=== PATIENT | female | born 1975 | race Caucasian/White ===

== ENCOUNTER 2016-11-24 07:43 | Emergency (ER) | payer BC ==
--- NOTE | 2016-11-24 08:14 | ED ---
General Adult HPI - General Chief complaint: Urogenital Stated complaint: FEMALE Time Seen by Provider: 11/24/16 08:06 Source: patient, RN notes reviewed Mode of arrival: ambulatory Limitations: no limitations - History of Present Illness Initial comments: Patient is a 41-year-old female who presents emergency room today with a chief complaint of dysuria. She does admit to pain in urination over the last week. Does admit that she doesn't some discomfort in lower abdomen. Patient denies any other complains associated symptoms. Patient denies any recent fever, chills , shortness of breath, chest pain, back pain, abdominal pain, nausea or vomiting , numbness or tingling, constipation or diarrhea, headaches or visual changes, or any other complaints. - Related Data Allergies Allergy/AdvReac Type Severity Reaction Status Date / Time ketorolac tromethamine Allergy Unknown Verified 11/24/16 07:52 [From Toradol] tramadol AdvReac Hallucinati Verified 11/24/16 07:52 ons Review of Systems ROS Statement: Those systems with pertinent positive or pertinent negative responses have been documented in the HPI. ROS Other: All systems not noted in ROS Statement are negative. Past Medical History Past Medical History: Asthma, COPD, Pneumonia Additional Past Medical History / Comment(s): uterine cancer, carpal tunnel, back pain, restless leg syndrome History of Any Multi-Drug Resistant Organisms: None Reported Past Surgical History: Cholecystectomy, Hysterectomy, Tubal Ligation Past Psychological History: Anxiety, Depression, Panic Disorder Smoking Status: Current every day smoker Past Alcohol Use History: None Reported Past Drug Use History: None Reported General Exam - General Exam Comments Initial Comments: General: The patient is awake and alert, in no distress, and does not appear acutely ill. Eye: Pupils are equal, round and reactive to light, extra-ocular movements are intact. No nystagmus. There is normal conjunctiva bilaterally. No signs of icterus. Ears, nose, mouth and throat: There are moist mucous membranes and no oral lesions. Neck: The neck is supple, there is no tenderness or JVD. Cardiovascular: There is a regular rate and rhythm. No murmur, rub or gallop is appreciated. Respiratory: Lungs are clear to auscultation, respirations are non-labored, breath sounds are equal. No wheezes, stridor, rales, or rhonchi. Gastrointestinal: Normal appearance abdomen. Normal bowel sounds. Abdomen soft on palpation. Patient does have mild tenderness suprapubic. No rebound tenderness. No guarding. No CVA tenderness. Musculoskeletal: Normal ROM, no tenderness. Strength 5/5. Sensation intact. Pulses equal bilaterally 2+. Neurological: A&O x 3. CN II-XII intact, There are no obvious motor or sensory deficits. Coordination appears grossly intact. Speech is normal. Skin: Skin is warm and dry and no rashes or lesions are noted. Psychiatric: Cooperative, appropriate mood & affect, normal judgment. Limitations: no limitations Course Vital Signs 11/24/16 07:49 Temperature 98.5 F Pulse Rate 96 Respiratory 20 Rate Blood Pressure 121/76 O2 Sat by Pulse 100 Oximetry Medical Decision Making - Medical Decision Making Patient urinalysis reviewed and does show evidence for urinary tract infection. Patient given dose of Rocephin here in the emergency room will be discharged home. No flank pain no tenderness and CVA. No fever. Vitals stable. Advised return for any fever or increase worsen his symptoms. Will be continued on antibiotics at home along with Pyridium for her symptoms. - Lab Data Lab Results 11/24/16 11/24/16 Range/Units 08:06 08:06 Urine Color Yellow Urine Appearance Turbid H (Clear) Urine pH 5.5 (5.0-8.0) Ur Specific [place] 1.018 (1.001-1.035) Urine Protein 2+ H (Negative) Urine Glucose (UA) Negative (Negative) Urine Ketones Trace H (Negative) Urine Blood Small H (Negative) Urine Nitrate Negative (Negative) Urine Bilirubin Negative (Negative) Urine Urobilinogen 4.0 (<2.0) mg/dL Ur Leukocyte Esterase Large H (Negative) Urine RBC 43 H (0-5) /hpf Urine WBC >182 H (0-5) /hpf Urine WBC Clumps Many H (None) /hpf Ur Squamous Epith Cells 7 H (0-4) /hpf Urine Bacteria Rare H (None) /hpf Urine Mucus Few H (None) /hpf Urine HCG, Qual Not Detected (Not Detectd) Disposition Clinical Impression: UTI (urinary tract infection) Disposition: HOME SELF-CARE Condition: Good Instructions: Urinary Tract Infection in Women (ED) Time of Disposition: 09:20
[2016-11-24 08:48] LABS: Appearance,Urine Turbid (Clear); Bacteria,Urine Rare /hpf; Bilirubin,Urine Negative (Negative); Glucose,Urine (UA) Negative (Negative); Ketones,Urine Trace (Negative); Leukocyte Esterase,Urine Large (Negative); Mucus,Urine Few /hpf; Nitrite,Urine Negative (Negative); PH, Urine 5.5 (5.0-8.0); Particle Count 13399; Protein,Urine 2+ (Negative); RBC,Urine 43 /hpf (0-5); Specific Gravity,Urine 1.018 (1.001-1.035); Squamous Epithelial Cell,Urine 7 /hpf (0-4); UA Billing (MACRO vs. MICRO) MICRO; WBC,Urine >182 /hpf (0-5)
[2016-11-24] MEDS ORDERED: cefTRIAXone 1,000 MG VIAL (IM USE) IM STA (09:19)
[2016-11-24 09:49] VITALS: BP 120/70; PULSE 84; RESP 18; TEMP 98.4
== END 2016-11-24 09:48 | disposition home or self-care (01) ==
LOC: EC 07:43
DX: N39.0 Urinary tract infection, site not specified (principal); F17.200 Nicotine dependence, unspecified, uncomplicated; Z88.5 Allergy status to narcotic agent; Z88.6 Allergy status to analgesic agent
CPT/HCPCS: 81001; 81025; 87086; 99283; 96372; J0696; 87077; 87186

== ENCOUNTER 2017-04-10 15:36 | Emergency (ER) | payer BC ==
[2017-04-10 15:56] VITALS: RESP 18
[2017-04-10] MEDS ORDERED: ONDANSETRON 4 MG/2 ML VIAL IVP STA (16:40)
[2017-04-10] MEDS ORDERED: SODIUM CHLORIDE 0.9% 1,000 ML IV STA (16:40)
[2017-04-10 17:25] LABS: Basophils % (A) 0 %; CH 29.8; CHCM 34.9; Eosinophils # (A) 0.1 k/uL (0-0.7); Eosinophils % (A) 1 %; HCT 41.5 % (34.0-46.0); HDW 2.73; HGB 14.6 gm/dL (11.4-16.0); Luc # (Auto) 0.12; Luc % (Auto) 2; Lymphocytes # (A) 1.4 k/uL (1.0-4.8); Lymphocytes % (A) 21 %; MCH 30.1 pg (25.0-35.0); MCHC 35.1 g/dL (31.0-37.0); MCV 85.6 fL (80.0-100.0); Mean Platelet Volume 9.2; Monocytes # (A) 0.3 k/uL (0-1.0); Monocytes % (A) 5 %; Neutrophils # (A) 4.8 k/uL (1.3-7.7); Neutrophils % (A) 71 %; RBC 4.85 m/uL (3.80-5.40); RDW 13.1 % (11.5-15.5); WBC 6.7 k/uL (3.8-10.6); WBC (Perox) 7.13
[2017-04-10 17:32] LABS: ALT 82 U/L (9-52); AST 31 U/L (14-36); Alkaline Phosphatase 110 U/L (38-126); Anion Gap 8 mmol/L; Blood Urea Nitrogen 5 mg/dL (7-17); Carbon Dioxide 23 mmol/L (22-30); Chloride 110 mmol/L (98-107); Glucose 83 mg/dL (74-99); Non-African American GFR(MDRD) >60 (>60 ml/min/1.73 sqM); Potassium 3.6 mmol/L (3.5-5.1); Sodium 141 mmol/L (137-145); Total Bilirubin 0.9 mg/dL (0.2-1.3)
[2017-04-10] MEDS ORDERED: MORPHINE SULFATE 4 MG/ML SYRINGE IVP STA ×2 (17:55→17:58)
[2017-04-10] MEDS ORDERED: RX INFO: IV CONTRAST WAS GIVEN 1 EACH MISC MISCELLANE PRN (18:09)
[2017-04-10 18:13] LABS: Appearance,Urine Clear (Clear); Bilirubin,Urine Negative (Negative); Glucose,Urine (UA) Negative (Negative); Ketones,Urine Negative (Negative); Leukocyte Esterase,Urine Negative (Negative); Nitrite,Urine Negative (Negative); PH, Urine 7.5 (5.0-8.0); Protein,Urine Negative (Negative); Specific Gravity,Urine 1.008 (1.001-1.035); UA Billing (MACRO vs. MICRO) CHEM; Urobilinogen,Urine <2.0 mg/dL (<2.0)
--- NOTE | 2017-04-10 18:59 | CT ---
EXAMINATION TYPE: CT abdomen pelvis w con DATE OF EXAM: 04/10/2017 COMPARISON: NONE HISTORY: Generalized pain with nausea, vomiting and diarrhea CT DLP: 454.4 mGycm Automated exposure control for dose reduction was used. TECHNIQUE: Helical acquisition of images was performed from the lung bases through the pelvis. CONTRAST: Performed without Oral Contrast and with IV Contrast, patient injected with 100 mL of Omnipaque 300. FINDINGS: Lung bases are clear. There is no pleural effusion. Heart size is normal. Liver spleen pancreas appear normal. Bile ducts are not dilated. There are clips from cholecystectomy . There is no adrenal mass. Kidneys show satisfactory contrast opacification. There is no hydronephrosi s. There is no ascites. Bladder distends smoothly. There is no sign of appendicitis. I see no intesti nal wall thickening. There are no dilated loops. There is no evidence of a bony destructive process. There is no sign of pelvic mass. CONCLUSION: Negative CT scan of the abdomen and pelvis. No sign of appendicitis.
--- NOTE | 2017-04-10 19:16 | ED ---
General Adult HPI - General Chief complaint: Nausea/Vomiting/Diarrhea Stated complaint: Vomiting Time Seen by Provider: 04/10/17 16:24 Source: patient, RN notes reviewed Mode of arrival: ambulatory Limitations: no limitations - History of Present Illness Initial comments: 41-year-old female with no significant past medical history presents with a one- day history of nausea vomiting and diarrhea. Patient states that prior to this illness she has decreased appetite. She reports approximately 12 episodes of vomiting and 4 episodes of diarrhea. Neither these were bloody. She also reports subjective chills, denies fever. She has some right lower quadrant and epigastric abdominal pain. Describes the pain as crampy in nature. She is not currently on any medications. - Related Data Previous Rx's Medication Instructions Recorded Ondansetron Odt [Zofran Odt] 4 mg PO Q8HR PRN #10 tab 04/10/17 Allergies Allergy/AdvReac Type Severity Reaction Status Date / Time ketorolac tromethamine Allergy Rash/Hives Verified 04/10/17 16:44 [From Toradol] tramadol Allergy Rash/Hives Verified 04/10/17 16:44 Review of Systems ROS Statement: Those systems with pertinent positive or pertinent negative responses have been documented in the HPI. ROS Other: All systems not noted in ROS Statement are negative. Past Medical History Past Medical History: Asthma, COPD, Pneumonia Additional Past Medical History / Comment(s): uterine cancer, carpal tunnel, back pain, restless leg syndrome History of Any Multi-Drug Resistant Organisms: None Reported Past Surgical History: Cholecystectomy, Hysterectomy, Tubal Ligation Past Psychological History: Anxiety, Depression, Panic Disorder Smoking Status: Current every day smoker Past Alcohol Use History: None Reported Past Drug Use History: None Reported General Exam Limitations: no limitations General appearance: alert, in no apparent distress Head exam: Present: atraumatic, normocephalic Eye exam: Present: normal appearance, PERRL ENT exam: Present: normal exam, mucous membranes moist Neck exam: Present: normal inspection, full ROM Respiratory exam: Present: normal lung sounds bilaterally. Absent: respiratory distress Cardiovascular Exam: Present: regular rate, normal rhythm GI/Abdominal exam: Present: soft, tenderness (Mild tenderness to palpation in the epigastrium and right lower quadrant) Extremities exam: Present: normal inspection, normal capillary refill. Absent: pedal edema Back exam: Present: normal inspection. Absent: CVA tenderness (R), CVA tenderness (L) Neurological exam: Present: alert, oriented X3 Psychiatric exam: Present: normal affect, normal mood Skin exam: Present: warm, dry Course Vital Signs 04/10/17 15:54 Temperature 98.6 F Pulse Rate 76 Respiratory 18 Rate Blood Pressure 125/73 O2 Sat by Pulse 99 Oximetry Medical Decision Making - Lab Data Result diagrams: 04/10/17 17:03 04/10/17 17:03 Lab Results 04/10/17 04/10/17 04/10/17 Range/Units 17:03 17:03 18:09 WBC 6.7 (3.8-10.6) k/uL RBC 4.85 (3.80-5.40) m/uL Hgb 14.6 (11.4-16.0) gm/dL Hct 41.5 (34.0-46.0) % MCV 85.6 (80.0-100.0) fL MCH 30.1 (25.0-35.0) pg MCHC 35.1 (31.0-37.0) g/dL RDW 13.1 (11.5-15.5) % Plt Count 189 (150-450) k/uL Neutrophils % 71 % Lymphocytes % 21 % Monocytes % 5 % Eosinophils % 1 % Basophils % 0 % Neutrophils # 4.8 (1.3-7.7) k/uL Lymphocytes # 1.4 (1.0-4.8) k/uL Monocytes # 0.3 (0-1.0) k/uL Eosinophils # 0.1 (0-0.7) k/uL Basophils # 0.0 (0-0.2) k/uL Sodium 141 (137-145) mmol/L Potassium 3.6 (3.5-5.1) mmol/L Chloride 110 H (98-107) mmol/L Carbon Dioxide 23 (22-30) mmol/L Anion Gap 8 mmol/L BUN 5 L (7-17) mg/dL Creatinine 0.57 (0.52-1.04) mg/dL Est GFR (MDRD) Af Amer >60 (>60 ml/min/1.73 sqM) Est GFR (MDRD) Non-Af >60 (>60 ml/min/1.73 sqM) Glucose 83 (74-99) mg/dL Calcium 9.0 (8.4-10.2) mg/dL Total Bilirubin 0.9 (0.2-1.3) mg/dL AST 31 (14-36) U/L ALT 82 H (9-52) U/L Alkaline Phosphatase 110 (38-126) U/L Total Protein 6.0 L (6.3-8.2) g/dL Albumin 3.6 (3.5-5.0) g/dL Lipase 37 (23-300) U/L Urine Color Yellow Urine Appearance Clear (Clear) Urine pH 7.5 (5.0-8.0) Ur Specific [place] 1.008 (1.001-1.035) Urine Protein Negative (Negative) Urine Glucose (UA) Negative (Negative) Urine Ketones Negative (Negative) Urine Blood Negative (Negative) Urine Nitrite Negative (Negative) Urine Bilirubin Negative (Negative) Urine Urobilinogen <2.0 (<2.0) mg/dL Ur Leukocyte Esterase Negative (Negative) Disposition Clinical Impression: Dehydration, Gastroenteritis Disposition: HOME SELF-CARE Condition: Good Instructions: Acute Nausea and Vomiting (ED), Acute Diarrhea (ED) Prescriptions: Ondansetron Odt [Zofran Odt] 4 mg PO Q8HR PRN #10 tab PRN Reason: Vomiting Referrals: None,Stated [Primary Care Provider] - 1-2 days Time of Disposition: 19:13
[2017-04-10 19:33] VITALS: BP 121/69; PULSE 68; TEMP 99
== END 2017-04-10 19:32 | disposition home or self-care (01) ==
LOC: EC 15:36
DX: K52.9 Noninfective gastroenteritis and colitis, unspecified (principal); E86.0 Dehydration; R11.2 Nausea with vomiting, unspecified; F17.200 Nicotine dependence, unspecified, uncomplicated; Z88.5 Allergy status to narcotic agent; Z88.6 Allergy status to analgesic agent; Z85.42 Personal history of malignant neoplasm of other parts of uterus; Z90.49 Acquired absence of other specified parts of digestive tract; Z90.710 Acquired absence of both cervix and uterus
CPT/HCPCS: 36415; 80053; 83690; 85025; 81003; 74177; 99284; 96374; 96375; 96361; J2270; J2405; Q9967

== ENCOUNTER 2017-06-13 08:29 | Emergency (ER) | payer SELFPAY ==
[2017-06-13 08:39] VITALS: TEMP 97
[2017-06-13] MEDS ORDERED: IPRATROPIUM-ALBUTEROL 3 ML NEB INHALATION STA (09:13)
--- NOTE | 2017-06-13 09:13 | ED ---
General Adult HPI - General Chief complaint: Upper Respiratory Infection Stated complaint: asthma/ chest tight Time Seen by Provider: 06/13/17 08:55 Source: patient, RN notes reviewed Mode of arrival: ambulatory Limitations: no limitations - History of Present Illness Initial comments: Patient is a 41-year-old female who presents emergency room today with a chief complaint of cough congestion over the last 5 days. She does admit to a history of asthma and emphysema. She states she's not been doing treatments at home. She states she was worried and did not want this infection it worse. She 's had pneumonia in the past was hospitalized. Patient does admit to sputum production it's been brown in color. She denies any other complaints or associated symptoms at this time. Patient denies any recent fever, chills, shortness of breath, chest pain, back pain, abdominal pain, nausea or vomiting, numbness or tingling, dysuria or hematuria, constipation or diarrhea, headaches or visual changes, or any other complaints. - Related Data Home Medications Medication Instructions Recorded Confirmed Ibuprofen [Motrin] 600 mg PO BID PRN 06/13/17 06/13/17 Previous Rx's Medication Instructions Recorded Albuterol Inhaler [Ventolin Hfa 1 - 2 puff INHALATION Q4-6H PRN #1 06/13/17 Inhaler] inhaler Albuterol Nebulized [Ventolin 2.5 mg INHALATION Q4H PRN 10 Days 06/13/17 Nebulized] Azithromycin [Zithromax Z-pack] 0 mg PO DIRECTED #6 tab 06/13/17 Allergies Allergy/AdvReac Type Severity Reaction Status Date / Time ketorolac tromethamine Allergy Rash/Hives Verified 06/13/17 09:11 [From Toradol] tramadol Allergy Rash/Hives Verified 06/13/17 09:11 Review of Systems ROS Statement: Those systems with pertinent positive or pertinent negative responses have been documented in the HPI. ROS Other: All systems not noted in ROS Statement are negative. Past Medical History Past Medical History: Asthma, COPD, Pneumonia Additional Past Medical History / Comment(s): uterine cancer, carpal tunnel, back pain, restless leg syndrome History of Any Multi-Drug Resistant Organisms: None Reported Past Surgical History: Cholecystectomy, Hysterectomy, Tubal Ligation Past Psychological History: Anxiety, Depression, Panic Disorder Smoking Status: Current every day smoker Past Alcohol Use History: None Reported Past Drug Use History: None Reported General Exam - General Exam Comments Initial Comments: General: The patient is awake and alert, in no distress, and does not appear acutely ill. Eye: Pupils are equal, round and reactive to light, extra-ocular movements are intact. No nystagmus. There is normal conjunctiva bilaterally. No signs of icterus. Ears, nose, mouth and throat: There are moist mucous membranes and no oral lesions. Neck: The neck is supple, there is no tenderness or JVD. Cardiovascular: There is a regular rate and rhythm. No murmur, rub or gallop is appreciated. Respiratory: Lungs are clear to auscultation, respirations are non-labored, breath sounds are equal. No wheezes, stridor, rales, or rhonchi. Gastrointestinal: Soft, non-distended, non-tender abdomen without masses or organomegaly noted. There is no rebound or guarding present. No CVA tenderness. Bowel sounds are unremarkable. Musculoskeletal: Normal ROM, no tenderness. Strength 5/5. Sensation intact. Pulses equal bilaterally 2+. Neurological: A&O x 3. CN II-XII intact, There are no obvious motor or sensory deficits. Coordination appears grossly intact. Speech is normal. Skin: Skin is warm and dry and no rashes or lesions are noted. Psychiatric: Cooperative, appropriate mood & affect, normal judgment. Limitations: no limitations Course Vital Signs 06/13/17 06/13/17 06/13/17 08:36 09:57 10:06 Temperature 97.0 F L Pulse Rate 101 H 100 92 Respiratory 18 Rate Blood Pressure 125/82 O2 Sat by Pulse 99 Oximetry Medical Decision Making - Medical Decision Making Patient's chest x-rays negative for any acute abnormalities. Results were discussed with the patient. Patient will be discharged home. She states that she feels better after breathing treatment. Patient will be given prescription for treatments at home along with antibiotics for possible infection. Disposition Clinical Impression: Acute bronchitis Disposition: HOME SELF-CARE Condition: Good Instructions: Acute Bronchitis (ED) Additional Instructions: Please use medication as discussed. Please follow-up with family doctor in the next 2 days of symptoms have not improved. Please return to emergency room if the symptoms increase or worsen or for any other concerns. Prescriptions: Albuterol Inhaler [Ventolin Hfa Inhaler] 1 - 2 puff INHALATION Q4-6H PRN #1 inhaler PRN Reason: Cough Albuterol Nebulized [Ventolin Nebulized] 2.5 mg INHALATION Q4H PRN 10 Days PRN Reason: Cough Azithromycin [Zithromax Z-pack] 0 mg PO DIRECTED #6 tab Referrals: None,Stated [Primary Care Provider] - 1-2 days Sagar Mackenzie MD [REFERRING] - 1-2 days Juni Mock DO [STAFF PHYSICIAN] - 1-2 days Time of Disposition: 10:26
--- NOTE | 2017-06-13 09:44 | XR ---
EXAMINATION TYPE: XR chest 2V DATE OF EXAM: 06/13/2017 COMPARISON: 12/09/2015 HISTORY: Cough and congestion with history of emphysema and asthma TECHNIQUE: Frontal and lateral views of the chest are obtained. FINDINGS: There is no focal air space opacity, pleural effusion, or pneumothorax seen. The cardiac silhouette size is within normal limits. The osseous structures are intact. IMPRESSION: No acute cardiopulmonary process.
[2017-06-13 10:07] VITALS: PULSE 92
[2017-06-13] MEDS ORDERED: ACETAMINOPHEN TAB 500 MG TAB PO STA (10:23)
[2017-06-13 10:29] VITALS: BP 117/77; RESP 20
== END 2017-06-13 10:34 | disposition home or self-care (01) ==
LOC: EC 08:29
DX: J20.9 Acute bronchitis, unspecified (principal); J45.909 Unspecified asthma, uncomplicated; J43.9 Emphysema, unspecified; F17.200 Nicotine dependence, unspecified, uncomplicated; Z85.42 Personal history of malignant neoplasm of other parts of uterus; Z88.6 Allergy status to analgesic agent
CPT/HCPCS: 71020; 94640; 99283

== ENCOUNTER 2017-10-05 17:22 | Emergency (ER) | payer OTHER ==
[2017-10-05] MEDS ORDERED: ONDANSETRON 4 MG/2 ML VIAL IVP STA (17:49)
[2017-10-05] MEDS ORDERED: SODIUM CHLORIDE 0.9% 1,000 ML IV STA (17:49)
--- NOTE | 2017-10-05 18:01 | ED ---
GI Bleed HPI - General Chief complaint: GI Bleed Stated complaint: Nausea/Vomiting Time Seen by Provider: 10/05/17 17:35 Source: patient, EMS, RN notes reviewed Mode of arrival: EMS Limitations: no limitations - History of Present Illness Initial comments: This is a 42-year-old female who presents to the emergency department with chief complaint of GI bleed. She was transported to the emergency department via EMS. Patient states that for the last couple of weeks she has felt nauseous and has been vomiting. Patient states that today she began to vomit blood. States that she vomited 3 times today. She states that she was vomiting clots and dark purple blood. She then began to have "convulsions" and her cousin contacted EMS. Patient states that she recently started experimenting with heroin, stating that she snorted it last night as well as taking morphine and [place]. Patient states that between 9 and 10 AM this morning she took morphine and has had 2 beers early this afternoon. Patient states that she takes no regular prescribed medications. Patient denies abdominal pain. She denies any recent fever or chills. She denies chest pain or shortness of breath. She states she has been constipated but this is normal for her and denies any blood per rectum. - Related Data Home Medications Medication Instructions Recorded Confirmed Aspirin 325 mg PO BID PRN 10/05/17 10/05/17 Allergies Allergy/AdvReac Type Severity Reaction Status Date / Time ketorolac tromethamine Allergy Rash/Hives Verified 10/05/17 17:54 [From Toradol] tramadol Allergy Rash/Hives Verified 10/05/17 17:54 Review of Systems ROS Statement: Those systems with pertinent positive or pertinent negative responses have been documented in the HPI. ROS Other: All systems not noted in ROS Statement are negative. Past Medical History Past Medical History: Asthma, COPD, Pneumonia Additional Past Medical History / Comment(s): uterine cancer, carpal tunnel, back pain, restless leg syndrome History of Any Multi-Drug Resistant Organisms: None Reported Past Surgical History: Cholecystectomy, Hysterectomy, Tubal Ligation Past Psychological History: Anxiety, Depression, Panic Disorder Smoking Status: Current every day smoker Past Alcohol Use History: Daily Past Drug Use History: Heroin, Opiates, Prescription Drug Abuse General Exam - General Exam Comments Initial Comments: General: Awake and alert, well-developed; in no apparent distress. Dried blood noted on front of patient's sweater. HEENT: Head atraumatic, normocephalic. Pupils are equal, round and reactive to light. Extraocular movements intact. Oropharynx moist without erythema or exudate. Neck: Supple. Normal ROM. Cardiovascular: Regular rate and rhythm. No murmurs, rubs or gallops. Chest symmetrical. Respiratory: Lungs clear to auscultation bilaterally. No wheezes, rales or rhonchi. Normal respiratory effort with no use of accessory muscles. Abdomen: Soft, non-tender, non-distended. No rigidity, rebound or guarding. Normal bowel sounds in all 4 quadrants. Musculoskeletal: Normal ROM, no tenderness bilateral upper and lower extremities. Skin: [place], warm and dry without rashes or lesions. Neurological: Alert and oriented x3. CN II-XII grossly intact. Speech is fluent and answers are appropriate. No focal neuro deficits. Psychiatric: Normal mood and affect. No overt signs of depression or anxiety noted. Limitations: no limitations Rectal exam: Present: normal inspection, normal rectal tone. Absent: black stool, bloody stool Course Vital Signs 10/05/17 10/05/17 17:27 19:13 Temperature 97.9 F 97.0 F L Pulse Rate 90 84 Respiratory 18 20 Rate Blood Pressure 121/76 118/78 O2 Sat by Pulse 100 97 Oximetry Medical Decision Making - Medical Decision Making This is a 42-year-old female who presents to the emergency department for evaluation of GI bleed. Patient stated that she has been vomiting blood today and was transported to the emergency department via EMS. While in the emergency department, patient had no episodes of vomiting. Stool occult blood was negative. Patient had a slightly elevated white count of 13.3. Her coags were within normal limits. Her platelets were within normal limits. She had a slightly decreased magnesium at 1.5, however patient admits to being a current every day drinker. Recommended patient to follow up with a primary care provider and to consider cessation of drug and alcohol abuse. Patient will be discharged home. She is in no acute distress at this time. She is in agreement with plan and voices understanding. All questions were answered. - Lab Data Result diagrams: 10/05/17 17:37 10/05/17 17:37 Lab Results 10/05/17 10/05/17 10/05/17 Range/Units 17:37 17:37 17:37 WBC 13.3 H (3.8-10.6) k/uL RBC 4.59 (3.80-5.40) m/uL Hgb 13.6 (11.4-16.0) gm/dL Hct 40.4 (34.0-46.0) % MCV 88.1 (80.0-100.0) fL MCH 29.6 (25.0-35.0) pg MCHC 33.6 (31.0-37.0) g/dL RDW 14.1 (11.5-15.5) % Plt Count 183 (150-450) k/uL Neutrophils % 62 % Neutrophils % (Manual) 68 % Lymphocytes % 31 % Lymphocytes % (Manual) 27 % Monocytes % 3 % Monocytes % (Manual) 3 % Eosinophils % 1 % Eosinophils % (Manual) 2 % Basophils % 1 % Neutrophils # 8.2 H (1.3-7.7) k/uL Neutrophils # (Manual) 9.04 H (1.3-7.7) k/uL Lymphocytes # 4.2 (1.0-4.8) k/uL Lymphocytes # (Manual) 3.59 (1.0-4.8) k/uL Monocytes # 0.4 (0-1.0) k/uL Monocytes # (Manual) 0.40 (0-1.0) k/uL Eosinophils # 0.1 (0-0.7) k/uL Eosinophils # (Manual) 0.27 (0-0.7) k/uL Basophils # 0.1 (0-0.2) k/uL Nucleated RBCs 0 (0-0) /100 WBC Manual Slide Review Performed RBC Morphology Normal PT (9.0-12.0) sec INR (<1.2) APTT (22.0-30.0) sec Sodium 137 (137-145) mmol/L Potassium 3.5 (3.5-5.1) mmol/L Chloride 99 (98-107) mmol/L Carbon Dioxide 28 (22-30) mmol/L Anion Gap 10 mmol/L BUN 16 (7-17) mg/dL Creatinine 0.64 (0.52-1.04) mg/dL Est GFR (MDRD) Af Amer >60 (>60 ml/min/1.73 sqM) Est GFR (MDRD) Non-Af >60 (>60 ml/min/1.73 sqM) Glucose 133 H (74-99) mg/dL Calcium 8.8 (8.4-10.2) mg/dL Magnesium 1.5 L (1.6-2.3) mg/dL Total Bilirubin 0.9 (0.2-1.3) mg/dL AST 100 H (14-36) U/L ALT 263 H (9-52) U/L Alkaline Phosphatase 120 (38-126) U/L Total Protein 6.1 L (6.3-8.2) g/dL Albumin 3.5 (3.5-5.0) g/dL Urine Color Urine Appearance (Clear) Urine pH (5.0-8.0) Ur Specific [place] (1.001-1.035) Urine Protein (Negative) Urine Glucose (UA) (Negative) Urine Ketones (Negative) Urine Blood (Negative) Urine Nitrite (Negative) Urine Bilirubin (Negative) Urine Urobilinogen (<2.0) mg/dL Ur Leukocyte Esterase (Negative) Stool Occult Blood Negative (Negative) 10/05/17 10/05/17 Range/Units 17:37 19:22 WBC (3.8-10.6) k/uL RBC (3.80-5.40) m/uL Hgb (11.4-16.0) gm/dL Hct (34.0-46.0) % MCV (80.0-100.0) fL MCH (25.0-35.0) pg MCHC (31.0-37.0) g/dL RDW (11.5-15.5) % Plt Count (150-450) k/uL Neutrophils % % Neutrophils % (Manual) % Lymphocytes % % Lymphocytes % (Manual) % Monocytes % % Monocytes % (Manual) % Eosinophils % % Eosinophils % (Manual) % Basophils % % Neutrophils # (1.3-7.7) k/uL Neutrophils # (Manual) (1.3-7.7) k/uL Lymphocytes # (1.0-4.8) k/uL Lymphocytes # (Manual) (1.0-4.8) k/uL Monocytes # (0-1.0) k/uL Monocytes # (Manual) (0-1.0) k/uL Eosinophils # (0-0.7) k/uL Eosinophils # (Manual) (0-0.7) k/uL Basophils # (0-0.2) k/uL Nucleated RBCs (0-0) /100 WBC Manual Slide Review RBC Morphology PT 10.9 (9.0-12.0) sec INR 1.1 (<1.2) APTT 22.5 (22.0-30.0) sec Sodium (137-145) mmol/L Potassium (3.5-5.1) mmol/L Chloride (98-107) mmol/L Carbon Dioxide (22-30) mmol/L Anion Gap mmol/L BUN (7-17) mg/dL Creatinine (0.52-1.04) mg/dL Est GFR (MDRD) Af Amer (>60 ml/min/1.73 sqM) Est GFR (MDRD) Non-Af (>60 ml/min/1.73 sqM) Glucose (74-99) mg/dL Calcium (8.4-10.2) mg/dL Magnesium (1.6-2.3) mg/dL Total Bilirubin (0.2-1.3) mg/dL AST (14-36) U/L ALT (9-52) U/L Alkaline Phosphatase (38-126) U/L Total Protein (6.3-8.2) g/dL Albumin (3.5-5.0) g/dL Urine Color Yellow Urine Appearance Clear (Clear) Urine pH 7.5 (5.0-8.0) Ur Specific [place] 1.020 (1.001-1.035) Urine Protein Trace H (Negative) Urine Glucose (UA) Negative (Negative) Urine Ketones Trace H (Negative) Urine Blood Negative (Negative) Urine Nitrite Negative (Negative) Urine Bilirubin Negative (Negative) Urine Urobilinogen 4.0 (<2.0) mg/dL Ur Leukocyte Esterase Negative (Negative) Stool Occult Blood (Negative) - EKG Data EKG Comments: EKG and 17:30:47. Normal sinus rhythm with sinus arrhythmia. Nonspecific T wave abnormality. Ventricular rate 87 bpm, FL interval 116, QRS duration 82, QT /QTC 346/416. Compared to previous EKG on 05/04/2016, no changes noted. Disposition Clinical Impression: Hematemesis with nausea Disposition: HOME SELF-CARE Condition: Good Instructions: Hematemesis (ED), Ondansetron (By mouth) Additional Instructions: Please take medications as prescribed. Please follow up with primary care provider within 1-2 days. Return to emergency department if symptoms should worsen or any concerns arise. Referrals: None,Stated [Primary Care Provider] - 1-2 days Lamberto Solitario MD [STAFF PHYSICIAN] - 1-2 days Time of Disposition: 20:18
[2017-10-05 18:13] LABS: ALT 263 U/L (9-52); AST 100 U/L (14-36); Albumin 3.5 g/dL (3.5-5.0); Alkaline Phosphatase 120 U/L (38-126); Anion Gap 10 mmol/L; Blood Urea Nitrogen 16 mg/dL (7-17); Calcium 8.8 mg/dL (8.4-10.2); Carbon Dioxide 28 mmol/L (22-30); Chloride 99 mmol/L (98-107); Glucose 133 mg/dL (74-99); Magnesium 1.5 mg/dL (1.6-2.3); Potassium 3.5 mmol/L (3.5-5.1); Sodium 137 mmol/L (137-145); Total Bilirubin 0.9 mg/dL (0.2-1.3); Total Protein 6.1 g/dL (6.3-8.2)
[2017-10-05 18:28] LABS: Neutrophils % (M) 68 %; Nucleated Red Blood Cells 0 /100 WBC (0-0); Total Cells Counted 100
[2017-10-05 18:45] LABS: Basophils # (A) 0.1 k/uL (0-0.2); Basophils % (A) 1 %; Eosinophils # (A) 0.1 k/uL (0-0.7); Eosinophils # (M) 0.27 k/uL (0-0.7); Eosinophils % (A) 1 %; HCT 40.4 % (34.0-46.0); HGB 13.6 gm/dL (11.4-16.0); Lymphocytes # (A) 4.2 k/uL (1.0-4.8); Lymphocytes # (M) 3.59 k/uL (1.0-4.8); Lymphocytes % (A) 31 %; MCH 29.6 pg (25.0-35.0); MCHC 33.6 g/dL (31.0-37.0); MCV 88.1 fL (80.0-100.0); Mean Platelet Volume 10.7; Monocytes # (A) 0.4 k/uL (0-1.0); Monocytes % (A) 3 %; Neutrophils # (A) 8.2 k/uL (1.3-7.7); Neutrophils # (M) 9.04 k/uL (1.3-7.7); Neutrophils % (A) 62 %; Platelet Count 183 k/uL (150-450); RBC 4.59 m/uL (3.80-5.40); RDW 14.1 % (11.5-15.5); WBC 13.3 k/uL (3.8-10.6)
[2017-10-05 19:14] VITALS: RESP 20
[2017-10-05 19:47] LABS: Appearance,Urine Clear (Clear); Bilirubin,Urine Negative (Negative); Blood,Urine Negative (Negative); Color,Urine Yellow; Glucose,Urine (UA) Negative (Negative); Ketones,Urine Trace (Negative); Leukocyte Esterase,Urine Negative (Negative); Nitrite,Urine Negative (Negative); PH, Urine 7.5 (5.0-8.0); Protein,Urine Trace (Negative)
[2017-10-05 19:49] LABS: INR 1.1 (<1.2); Partial Thromboplastin Time 22.5 sec (22.0-30.0); Prothrombin Time 10.9 sec (9.0-12.0)
[2017-10-05] MEDS ORDERED: ONDANSETRON 4 MG ODT STARTER PACK 2 TAB BTL PO STA (20:18)
[2017-10-05 20:45] VITALS: BP 105/65; PULSE 125; TEMP 97.2
== END 2017-10-05 20:44 | disposition home or self-care (01) ==
LOC: EC 17:22
DX: K92.0 Hematemesis (principal); F17.200 Nicotine dependence, unspecified, uncomplicated; Z85.42 Personal history of malignant neoplasm of other parts of uterus; Z90.49 Acquired absence of other specified parts of digestive tract; Z88.6 Allergy status to analgesic agent
CPT/HCPCS: 36415; 93005; 80053; 83735; 85025; 85610; 85730; 82272; 81003; 99285; 96374; 96361 ×3; J2405; S0119

== ENCOUNTER 2018-02-15 01:48 | Emergency (ER) | payer OTHER ==
[2018-02-15 02:09] VITALS: TEMP 98.1
[2018-02-15] MEDS ORDERED: IPRATROPIUM-ALBUTEROL 3 ML NEB INHALATION STA (02:43)
[2018-02-15] MEDS ORDERED: ACETAMINOPHEN TAB 500 MG TAB PO STA (02:44)
[2018-02-15 02:55] LABS: Anisocytosis Slight; Basophils % (A) 0 %; Eosinophils # (A) 0.1 k/uL (0-0.7); Eosinophils % (A) 1 %; HCT 37.2 % (34.0-46.0); HGB 12.4 gm/dL (11.4-16.0); Lymphocytes % (A) 15 %; MCH 24.6 pg (25.0-35.0); MCHC 33.3 g/dL (31.0-37.0); MCV 73.8 fL (80.0-100.0); Mean Platelet Volume 8.8; Microcytosis Moderate; Monocytes # (A) 0.6 k/uL (0-1.0); Monocytes % (A) 5 %; Neutrophils # (A) 10.3 k/uL (1.3-7.7); Neutrophils % (A) 78 %; Platelet Count 229 k/uL (150-450); RBC 5.05 m/uL (3.80-5.40); RDW 18.1 % (11.5-15.5); WBC 13.2 k/uL (3.8-10.6)
[2018-02-15 03:04] LABS: Glucose 85 mg/dL (74-99); Partial Thromboplastin Time 22.7 sec (22.0-30.0); Prothrombin Time 9.6 sec (9.0-12.0)
[2018-02-15 03:05] LABS: ALT 28 U/L (9-52); AST 23 U/L (14-36); Albumin 4.2 g/dL (3.5-5.0); Alkaline Phosphatase 118 U/L (38-126); Anion Gap 15 mmol/L; Blood Urea Nitrogen 7 mg/dL (7-17); Calcium 9.3 mg/dL (8.4-10.2); Carbon Dioxide 18 mmol/L (22-30); Chloride 110 mmol/L (98-107); Potassium 3.8 mmol/L (3.5-5.1); Sodium 143 mmol/L (137-145); Total Bilirubin 0.6 mg/dL (0.2-1.3); Total Protein 7.2 g/dL (6.3-8.2)
--- NOTE | 2018-02-15 03:17 | ED ---
SOB HPI - General Chief Complaint: Shortness of Breath Stated Complaint: SOB,cough Time Seen by Provider: 02/15/18 02:39 Source: patient, RN notes reviewed Mode of arrival: wheelchair Limitations: no limitations - History of Present Illness Initial Comments: This is a 42-year-old female who presents to the emergency department with chief complaint of cough and shortness of breath. Patient reports history of asthma. She states that she has had a cough for the past one week. She states that at 11 PM this evening she developed shortness of breath. She states that she does not have any inhalers or at-home nebulizer treatments. She denies any fevers or chills. She does report some back pain where she feels like she strained something in her upper back from all the coughing. Denies chest pain, abdominal pain, nausea or vomiting, diarrhea or constipation. - Related Data Home Medications Medication Instructions Recorded Confirmed Aspirin 325 mg PO BID PRN 10/05/17 10/05/17 Previous Rx's Medication Instructions Recorded Albuterol Inhaler [Ventolin Hfa 1 - 2 puff INHALATION Q6HR PRN #1 02/15/18 Inhaler] inhaler predniSONE 20 mg PO BID #8 tab 02/15/18 Allergies Allergy/AdvReac Type Severity Reaction Status Date / Time ketorolac tromethamine Allergy Rash/Hives Verified 02/15/18 01:59 [From Toradol] tramadol Allergy Rash/Hives Verified 02/15/18 01:59 Review of Systems ROS Statement: Those systems with pertinent positive or pertinent negative responses have been documented in the HPI. ROS Other: All systems not noted in ROS Statement are negative. Past Medical History Past Medical History: Asthma, COPD, Pneumonia Additional Past Medical History / Comment(s): uterine cancer, carpal tunnel, back pain, restless leg syndrome History of Any Multi-Drug Resistant Organisms: None Reported Past Surgical History: Cholecystectomy, Hysterectomy, Tubal Ligation Past Psychological History: Anxiety, Depression, Panic Disorder Smoking Status: Current every day smoker Past Alcohol Use History: Daily Past Drug Use History: Heroin, Opiates, Prescription Drug Abuse General Exam - General Exam Comments Initial Comments: General: Awake and alert, well-developed; in no apparent distress. HEENT: Head atraumatic, normocephalic. Pupils are equal, round and reactive to light. Extraocular movements intact. Oropharynx moist without erythema or exudate. Neck: Supple. Normal ROM. Cardiovascular: Regular rate and rhythm. No murmurs, rubs or gallops. Chest symmetrical. Respiratory: Normal respiratory effort with no use of accessory muscles. Diffuse rhonchi and wheezes throughout. Musculoskeletal: Normal ROM, no tenderness bilateral upper and lower extremities. Skin: [place], warm and dry without rashes or lesions. Neurological: Alert and oriented x3. CN II-XII grossly intact. Speech is fluent and answers are appropriate. No focal neuro deficits. Psychiatric: Normal mood and affect. No overt signs of depression or anxiety noted. Limitations: no limitations Course Vital Signs 02/15/18 02/15/18 02/15/18 01:57 01:59 02:59 Temperature 99.2 F 98.1 F Pulse Rate 108 H 110 H 92 Respiratory 18 16 16 Rate Blood Pressure 128/73 126/62 137/87 O2 Sat by Pulse 96 97 96 Oximetry 02/15/18 02/15/18 03:08 03:22 Temperature Pulse Rate 96 93 Respiratory Rate Blood Pressure O2 Sat by Pulse Oximetry Medical Decision Making - Medical Decision Making This is a 42-year-old female presents to the emergency department with chief complaint of cough and shortness of breath. Patient states that she does have a history of asthma. She states that she takes no medications and does not have a rescue albuterol inhaler. On presentation, patient had a slightly elevated heart rate, 97% on room air. Since that time heart rate has stabilized. There were generalized wheezes and rhonchi throughout all lung [place]. Patient received a DuoNeb breathing treatment. On reexamination, lung sounds have improved. CBC revealed a slightly elevated white blood cell count of 13.2 with a left shift of 10.3. CMP revealed a CO2 at 18, however patient did present with difficulty breathing. CMP was otherwise unremarkable. Chest x -ray revealed no acute abnormalities. Patient suffering from acute asthma exacerbation. She will be started on a course of steroids as well as given a prescription for albuterol inhaler. Patient is in agreement with plan and voices understanding. She'll be discharged home at this time. She is in no acute distress. - Lab Data Result diagrams: 02/15/18 02:20 02/15/18 02:20 Lab Results 02/15/18 02/15/18 02/15/18 Range/Units 02:20 02:20 02:20 WBC 13.2 H (3.8-10.6) k/uL RBC 5.05 (3.80-5.40) m/uL Hgb 12.4 (11.4-16.0) gm/dL Hct 37.2 (34.0-46.0) % MCV 73.8 L (80.0-100.0) fL MCH 24.6 L (25.0-35.0) pg MCHC 33.3 (31.0-37.0) g/dL RDW 18.1 H (11.5-15.5) % Plt Count 229 (150-450) k/uL Neutrophils % 78 % Lymphocytes % 15 % Monocytes % 5 % Eosinophils % 1 % Basophils % 0 % Neutrophils # 10.3 H (1.3-7.7) k/uL Lymphocytes # 2.0 (1.0-4.8) k/uL Monocytes # 0.6 (0-1.0) k/uL Eosinophils # 0.1 (0-0.7) k/uL Basophils # 0.0 (0-0.2) k/uL Anisocytosis Slight Microcytosis Moderate PT 9.6 (9.0-12.0) sec INR 1.0 (<1.2) APTT 22.7 (22.0-30.0) sec Sodium 143 (137-145) mmol/L Potassium 3.8 (3.5-5.1) mmol/L Chloride 110 H (98-107) mmol/L Carbon Dioxide 18 L (22-30) mmol/L Anion Gap 15 mmol/L BUN 7 (7-17) mg/dL Creatinine 0.60 (0.52-1.04) mg/dL Est GFR (CKD-EPI)AfAm >90 (>60 ml/min/1.73 sqM) Est GFR (CKD-EPI)NonAf >90 (>60 ml/min/1.73 sqM) Glucose 85 (74-99) mg/dL Calcium 9.3 (8.4-10.2) mg/dL Total Bilirubin 0.6 (0.2-1.3) mg/dL AST 23 (14-36) U/L ALT 28 (9-52) U/L Alkaline Phosphatase 118 (38-126) U/L Troponin I (0.000-0.034) ng/mL Total Protein 7.2 (6.3-8.2) g/dL Albumin 4.2 (3.5-5.0) g/dL 02/15/18 Range/Units 02:20 WBC (3.8-10.6) k/uL RBC (3.80-5.40) m/uL Hgb (11.4-16.0) gm/dL Hct (34.0-46.0) % MCV (80.0-100.0) fL MCH (25.0-35.0) pg MCHC (31.0-37.0) g/dL RDW (11.5-15.5) % Plt Count (150-450) k/uL Neutrophils % % Lymphocytes % % Monocytes % % Eosinophils % % Basophils % % Neutrophils # (1.3-7.7) k/uL Lymphocytes # (1.0-4.8) k/uL Monocytes # (0-1.0) k/uL Eosinophils # (0-0.7) k/uL Basophils # (0-0.2) k/uL Anisocytosis Microcytosis PT (9.0-12.0) sec INR (<1.2) APTT (22.0-30.0) sec Sodium (137-145) mmol/L Potassium (3.5-5.1) mmol/L Chloride (98-107) mmol/L Carbon Dioxide (22-30) mmol/L Anion Gap mmol/L BUN (7-17) mg/dL Creatinine (0.52-1.04) mg/dL Est GFR (CKD-EPI)AfAm (>60 ml/min/1.73 sqM) Est GFR (CKD-EPI)NonAf (>60 ml/min/1.73 sqM) Glucose (74-99) mg/dL Calcium (8.4-10.2) mg/dL Total Bilirubin (0.2-1.3) mg/dL AST (14-36) U/L ALT (9-52) U/L Alkaline Phosphatase (38-126) U/L Troponin I <0.012 (0.000-0.034) ng/mL Total Protein (6.3-8.2) g/dL Albumin (3.5-5.0) g/dL - Radiology Data Radiology results: report reviewed, image reviewed Chest x-ray impression: Normal chest. No change. Disposition Clinical Impression: Asthma with exacerbation Disposition: HOME SELF-CARE Condition: Good Instructions: Asthma (ED) Additional Instructions: Please take medications as prescribed. Please follow up with primary care provider within 1-2 days. Return to emergency department if symptoms should worsen or any concerns arise. Prescriptions: Albuterol Inhaler [Ventolin Hfa Inhaler] 1 - 2 puff INHALATION Q6HR PRN #1 inhaler PRN Reason: Dyspnea predniSONE 20 mg PO BID #8 tab Is patient prescribed a controlled substance at d/c from ED?: No Referrals: Stacey Kincaid MD [Primary Care Provider] - 1-2 days Time of Disposition: 03:53
--- NOTE | 2018-02-15 03:43 | XR ---
EXAMINATION TYPE: XR chest 2V DATE OF EXAM: 02/15/2018 COMPARISON: 06/13/2017 HISTORY: Cough TECHNIQUE: Frontal and lateral views of the chest are obtained. FINDINGS: Heart and mediastinum are normal. Lungs are clear. Diaphragm is normal. There are chest le ads. IMPRESSION: Normal chest. No change.
[2018-02-15] MEDS ORDERED: predniSONE 50 MG TAB PO STA (03:52)
[2018-02-15 04:13] VITALS: BP 145/87; PULSE 96; RESP 19
== END 2018-02-15 04:13 | disposition home or self-care (01) ==
LOC: EC 01:48
DX: J45.901 Unspecified asthma with (acute) exacerbation (principal); M54.6 Pain in thoracic spine; F17.200 Nicotine dependence, unspecified, uncomplicated; Z88.6 Allergy status to analgesic agent
CPT/HCPCS: 36415; 94640; 80053; 84484; 85025; 85610; 85730; 71046; 99285; J7512

== ENCOUNTER 2019-08-10 09:49 | Day surgery (SDC) | payer OTHER ==
[2019-08-06 09:33] VITALS: BMI 31.2
[~2019-08-10 09:49] MED LIST: LACTATED RINGERS 1,000 ML IV SCH; LIDOCAINE 1% 20 ML VIAL (10MG/ML) FOR IV START INTRADERMA PRN
[2019-08-10 11:36] VITALS: TEMP 98
[2019-08-10] MEDS ORDERED: PROPOFOL 10 MG/ML 20 ML VIAL IV ONE (13:01)
[2019-08-10] MEDS ORDERED: fentaNYL (PF) 50 MCG/ML 2 ML AMP ONE (13:01)
[2019-08-10] MEDS ORDERED: LIDOCAINE 1% INJ 10MG/ML (20 ML MDV) ONE (13:01)
[2019-08-10] MEDS ORDERED: MIDAZOLAM 2 MG/2 ML VIAL ONE (13:01)
--- NOTE | 2019-08-10 13:05 | P.GSHP ---
History of Present Illness H&P Date: 08/10/19 Chief Complaint: GI bleed, diarrhea She'll this a 43-year-old female referred from Dr. davis. She's had complaints of diarrhea and GI bleed. Today for EGD and colonoscopy. Past Medical History Past Medical History: Asthma, Cancer, COPD, Pneumonia Additional Past Medical History / Comment(s): hx of stomach ulcers, hx of H. Pylori, current frequent diarrhea, blood in stool, vomiting, uterine cancer, left carpal tunnel, restless leg syndrome History of Any Multi-Drug Resistant Organisms: None Reported Past Surgical History: Cholecystectomy, Hysterectomy, Orthopedic Surgery, Tubal Ligation Additional Past Surgical History / Comment(s): rt carpal tunnel Past Anesthesia/Blood Transfusion Reactions: No Reported Reaction Past Psychological History: Anxiety, Depression Smoking Status: Current every day smoker Past Alcohol Use History: None Reported Additional Past Alcohol Use History / Comment(s): down to 5 cigarettes from 1ppd, started age 16, states previous alcholic, states quit december 2017 Past Drug Use History: Heroin, Opiates, Prescription Drug Abuse Additional Drug Use History / Comment(s): per patient past use 10-15 yrs ago - Past Family History Mother Family Medical History: No Reported History Medications and Allergies Home Medications Medication Instructions Recorded Confirmed Type ALPRAZolam [Xanax] 0.25 mg PO HS PRN 08/06/19 08/10/19 History Albuterol Inhaler [Ventolin Hfa 1 - 2 puff INHALATION RT-Q6H PRN 08/06/19 08/10/19 History Inhaler] Citalopram Hydrobromide [CeleXA] 10 mg PO DAILY 08/06/19 08/10/19 History Dicyclomine [Bentyl] 10 mg PO QID 08/06/19 08/10/19 History Omeprazole 20 mg PO DAILY 08/06/19 08/10/19 History Allergies Allergy/AdvReac Type Severity Reaction Status Date / Time ketorolac tromethamine Allergy Rash/Hives Verified 08/10/19 11:13 [From Toradol] tramadol Allergy Rash/Hives Verified 08/10/19 11:13 Surgical - Exam Vital Signs Temp Pulse Resp BP Pulse Ox 98.0 F 77 16 142/87 95 08/10/19 11:25 08/10/19 11:25 08/10/19 11:25 08/10/19 11:25 08/10/19 11:25 - General well developed, well nourished, no distress - Eyes PERRL - ENT normal pinna - Neck no masses - Respiratory normal expansion - Cardiovascular Rhythm: regular - Abdomen Abdomen: soft, non tender Assessment and Plan Assessment: GI bleed, diarrhea. We'll perform EGD and colonoscopy.
--- NOTE | 2019-08-10 13:22 | P.OP ---
Date of Procedure: 08/10/19 Preoperative Diagnosis: GI bleed Postoperative Diagnosis: Antral gastritis Hiatal hernia Procedure(s) Performed: EGD Anesthesia: MAC Surgeon: Juan José Cherry Pathology: other (Antrum, esophagus) Condition: stable Disposition: PACU Description of Procedure: The patient's placed on the endoscopy table in the lateral position. She received IV sedation. The gastroscope placed oropharynx and passed in the esophagus and into the stomach. Scope then placed through the pylorus. The first and second portion of the duodenum appeared normal. Scope was then brought back the antrum and this appeared mildly inflamed. A biopsies performed. The scope was then retroflexed and remainder of the stomach. Normal. The patient had a sliding hiatal hernia. The GE junction was at 38 cm. The distal esophagus appeared normal and random biopsies performed. The proximal esophagus appeared normal. Scope was withdrawn for patient. Next digital rectal exam was performed. There were external hemorrhoids noted. The flexible colonoscope was then placed in the patient's anus and passed throughout the entire colon the ileocecal valve visualized. The cecum, ascending and transverse colon appeared normal. There is known to any inflammation or polyps. Scope was then brought back into the descending; this appeared normal. The scope was then brought back the rectum and this appeared normal. A random rectal biopsies performed due to the patient's symptoms of diarrhea. The scope was then withdrawn for patient.
[2019-08-10 13:36] VITALS: PULSE 78; RESP 18
[2019-08-10 14:18] VITALS: BP 126/84
== END 2019-08-10 14:25 | disposition home or self-care (01) ==
LOC: ORWHC2ENDO 09:49
PROVIDERS: ATTEND Surgery
DX: K29.51 Unspecified chronic gastritis with bleeding (principal); K62.1 Rectal polyp; K44.9 Diaphragmatic hernia without obstruction or gangrene; K64.4 Residual hemorrhoidal skin tags; R19.7 Diarrhea, unspecified; K21.9 Gastro-esophageal reflux disease without esophagitis; J44.9 Chronic obstructive pulmonary disease, unspecified; G25.81 Restless legs syndrome; F41.9 Anxiety disorder, unspecified; F32.9 Major depressive disorder, single episode, unspecified; F17.210 Nicotine dependence, cigarettes, uncomplicated; Z88.6 Allergy status to analgesic agent; Z88.5 Allergy status to narcotic agent; Z97.2 Presence of dental prosthetic device (complete) (partial); Z79.899 Other long term (current) drug therapy; Z98.890 Other specified postprocedural states; Z90.49 Acquired absence of other specified parts of digestive tract; Z98.51 Tubal ligation status; Z90.710 Acquired absence of both cervix and uterus; Z85.42 Personal history of malignant neoplasm of other parts of uterus; Z87.01 Personal history of pneumonia (recurrent); Z87.11 Personal history of peptic ulcer disease; Z86.19 Personal history of other infectious and parasitic diseases; Z86.69 Personal history of other diseases of the nervous system and sense organs
CPT/HCPCS: 88305; 45380; 43239; J2250; J2001; J3010; J2704

== ENCOUNTER → 2019-08-18 | Outpatient (CLI) | payer OTHER ==
[2019-08-18 13:35] LABS: Basophils % (A) 1 %; Eosinophils # (A) 0.1 k/uL (0-0.7); Eosinophils % (A) 2 %; HCT 42.2 % (34.0-46.0); HGB 14.8 gm/dL (11.4-16.0); Lymphocytes # (A) 2.6 k/uL (1.0-4.8); Lymphocytes % (A) 31 %; MCH 31.2 pg (25.0-35.0); MCHC 35.1 g/dL (31.0-37.0); MCV 88.7 fL (80.0-100.0); Mean Platelet Volume 8.1; Monocytes # (A) 0.4 k/uL (0-1.0); Monocytes % (A) 5 %; Neutrophils # (A) 5.1 k/uL (1.3-7.7); Neutrophils % (A) 60 %; Platelet Count 227 k/uL (150-450); RBC 4.75 m/uL (3.80-5.40); RDW 12.9 % (11.5-15.5); WBC 8.4 k/uL (3.8-10.6)
== END | disposition home or self-care (01) ==
LOC: LABPAT 13:13
PROVIDERS: ATTEND Surgery
DX: Z01.812 Encounter for preprocedural laboratory examination (principal); K21.0 Gastro-esophageal reflux disease with esophagitis
CPT/HCPCS: 36415; 85025

== ENCOUNTER 2019-08-19 13:55 | Emergency (ER) | payer OTHER ==
[2019-08-19 13:59] VITALS: RESP 18; TEMP 98.4
[2019-08-19] MEDS ORDERED: ONDANSETRON 4 MG/2 ML VIAL IVP STA (14:19)
[2019-08-19] MEDS ORDERED: SODIUM CHLORIDE 0.9% 1,000 ML IV STA (14:19)
[2019-08-19] MEDS ORDERED: ACETAMINOPHEN TAB 500 MG TAB PO STA ×2 (14:19→15:50)
--- NOTE | 2019-08-19 14:21 | ED ---
General Adult HPI - General Chief complaint: Nausea/Vomiting/Diarrhea Stated complaint: Vomiting, near syncope Time Seen by Provider: 08/19/19 14:03 Source: patient, RN notes reviewed Mode of arrival: ambulatory Limitations: no limitations - History of Present Illness Initial comments: 43-year-old female with a past medical history of asthma, COPD, pneumonia, stomach ulcer, uterine cancer presents to the emergency department for a chief complaint of nausea vomiting. Patient has had nausea and upper abdominal pain for 2 months. States that she has a surgery scheduled for a hiatal hernia with Dr. Cherry on August 28. States that today the nausea worsened and she has vomited several times. States all the pain is in her epigastric and left upper quadrants. Denies lower abdominal pain. Denies fevers or chills. Does admit to mild diarrhea. Patient has a history of cholecystectomy. Patient is currently taking Pepcid and omeprazole for this as well as Bentyl. Patient has no other complaints at this time including shortness of breath, chest pain, headache, or visual changes. - Related Data Home Medications Medication Instructions Recorded Confirmed ALPRAZolam [Xanax] 0.25 mg PO BID 08/06/19 08/19/19 Albuterol Inhaler [Ventolin Hfa 1 - 2 puff INHALATION RT-Q6H PRN 08/06/19 08/19/19 Inhaler] Citalopram Hydrobromide [CeleXA] 10 mg PO DAILY 08/06/19 08/19/19 Dicyclomine [Bentyl] 10 mg PO QID 08/06/19 08/19/19 Omeprazole 20 mg PO DAILY 08/06/19 08/19/19 Allergies Allergy/AdvReac Type Severity Reaction Status Date / Time ketorolac tromethamine Allergy Rash/Hives Verified 08/19/19 14:27 [From Toradol] tramadol Allergy Rash/Hives Verified 08/19/19 14:27 Review of Systems ROS Statement: Those systems with pertinent positive or pertinent negative responses have been documented in the HPI. ROS Other: All systems not noted in ROS Statement are negative. Past Medical History Past Medical History: Asthma, Cancer, COPD, Pneumonia Additional Past Medical History / Comment(s): hx of stomach ulcers, hx of H. Pylori, current frequent diarrhea, blood in stool, vomiting, uterine cancer, left carpal tunnel, restless leg syndrome History of Any Multi-Drug Resistant Organisms: None Reported Past Surgical History: Cholecystectomy, Hysterectomy, Orthopedic Surgery, Tubal Ligation Additional Past Surgical History / Comment(s): rt carpal tunnel Past Anesthesia/Blood Transfusion Reactions: No Reported Reaction Past Psychological History: Anxiety, Depression Smoking Status: Current every day smoker Past Alcohol Use History: Occasional Past Drug Use History: Heroin, Opiates, Prescription Drug Abuse - Past Family History Mother Family Medical History: No Reported History General Exam Limitations: no limitations General appearance: alert, in no apparent distress Head exam: Present: atraumatic, normocephalic, normal inspection Eye exam: Present: normal appearance, PERRL, EOMI. Absent: scleral icterus, conjunctival injection, periorbital swelling ENT exam: Present: normal exam, mucous membranes moist Neck exam: Present: normal inspection, full ROM. Absent: tenderness, meningismus, lymphadenopathy Respiratory exam: Present: normal lung sounds bilaterally. Absent: respiratory distress, wheezes, rales, rhonchi, stridor Cardiovascular Exam: Present: regular rate, normal rhythm, normal heart sounds. Absent: systolic murmur, diastolic murmur, rubs, gallop, clicks GI/Abdominal exam: Present: soft, tenderness (mild epigastric and LUQ tenderness without guarding or rebound, abdomen is soft.. no suprapubic or lower abdominal tenderness.), normal bowel sounds. Absent: distended, guarding, rebound, rigid Expanded GI/Abdominal exam: Absent: psoas sign, obturator sign, heel tap sign, Koo's sign, Rovsing's sign, tenderness at McBurney's Point Back exam: Absent: CVA tenderness (R), CVA tenderness (L) Course Vital Signs 08/19/19 08/19/19 13:56 15:15 Temperature 98.4 F Pulse Rate 81 79 Respiratory 18 18 Rate Blood Pressure 140/95 109/71 O2 Sat by Pulse 100 98 Oximetry Medical Decision Making - Medical Decision Making 43-year-old female presents for epigastric pain as well as nausea vomiting diarrhea for 2 months. Patient has had an EGD and colonoscopy on August [address] Cherry where a sliding hiatal hernia and chronic gastritis was identified. Patient has been taking omeprazole and Pepcid for this. Colonoscopy was normal. Abdominal exam is generally benign. There is minimal epigastric tenderness however no guarding or rebound. Abdomen is soft. Vitals are stable. She denies any associated chest pain or shortness of breath. CBC CMP unremarkable. There is some evidence of dehydration, patient was given fluids. Urinalysis negative. X-ray KUB was obtained to rule out obstruction which showed multiple air-fluid levels without distention, correlate for gastroenteritis. Patient was given Zofran and did have significant improvement in nausea symptoms. She does have some mild pain but initially refused Tylenol. Unfortunately patient is ALLERGIC to Toradol and has a history of drug abuse so was not given narcotics. Patient now does accept Tylenol as well as Pepcid. Patient will be discharged home to follow-up with Dr. Cherry to discuss her surgery for her hiatal hernia August 28. Discussed returning here if she has any worsening symptoms before that. - Lab Data Result diagrams: 08/19/19 14:33 08/19/19 14:33 Lab Results 08/19/19 08/19/19 08/19/19 Range/Units 14:33 14:33 15:20 WBC 6.8 (3.8-10.6) k/uL RBC 4.95 (3.80-5.40) m/uL Hgb 15.2 (11.4-16.0) gm/dL Hct 43.7 (34.0-46.0) % MCV 88.3 (80.0-100.0) fL MCH 30.7 (25.0-35.0) pg MCHC 34.8 (31.0-37.0) g/dL RDW 12.7 (11.5-15.5) % Plt Count 217 (150-450) k/uL Neutrophils % 56 % Lymphocytes % 36 % Monocytes % 4 % Eosinophils % 2 % Basophils % 1 % Neutrophils # 3.8 (1.3-7.7) k/uL Lymphocytes # 2.5 (1.0-4.8) k/uL Monocytes # 0.3 (0-1.0) k/uL Eosinophils # 0.2 (0-0.7) k/uL Basophils # 0.0 (0-0.2) k/uL Sodium 143 (137-145) mmol/L Potassium 3.9 (3.5-5.1) mmol/L Chloride 114 H (98-107) mmol/L Carbon Dioxide 19 L (22-30) mmol/L Anion Gap 10 mmol/L BUN 4 L (7-17) mg/dL Creatinine 0.59 (0.52-1.04) mg/dL Est GFR (CKD-EPI)AfAm >90 (>60 ml/min/1.73 sqM) Est GFR (CKD-EPI)NonAf >90 (>60 ml/min/1.73 sqM) Glucose 84 (74-99) mg/dL Calcium 8.7 (8.4-10.2) mg/dL Total Bilirubin 1.5 H (0.2-1.3) mg/dL AST 20 (14-36) U/L ALT 19 (9-52) U/L Alkaline Phosphatase 59 (38-126) U/L Total Protein 6.7 (6.3-8.2) g/dL Albumin 4.0 (3.5-5.0) g/dL Amylase 51 (30-110) U/L Lipase 50 (23-300) U/L Urine Color Light Yellow Urine Appearance Clear (Clear) Urine pH 6.0 (5.0-8.0) Ur Specific [place] 1.002 (1.001-1.035) Urine Protein Negative (Negative) Urine Glucose (UA) Negative (Negative) Urine Ketones Negative (Negative) Urine Blood Negative (Negative) Urine Nitrite Negative (Negative) Urine Bilirubin Negative (Negative) Urine Urobilinogen <2.0 (<2.0) mg/dL Ur Leukocyte Esterase Negative (Negative) Disposition Clinical Impression: Nausea and vomiting Disposition: HOME SELF-CARE Condition: Good Instructions (If sedation given, give patient instructions): Acute Nausea and Vomiting (ED) Additional Instructions: Please continue to take prescriptions given to you by Dr. Cherry. You may take Zofran as needed for nausea. This was prescribed to Ritiván Ricks on . Please follow-up with Dr. Cherry in the next couple days. Return to the emergency department if you have any worsening symptoms. Is patient prescribed a controlled substance at d/c from ED?: No Referrals: Arslan Grady MD [Primary Care Provider] - 1-2 days Time of Disposition: 15:53
[2019-08-19 14:45] LABS: Basophils % (A) 1 %; Eosinophils # (A) 0.2 k/uL (0-0.7); Eosinophils % (A) 2 %; HCT 43.7 % (34.0-46.0); HGB 15.2 gm/dL (11.4-16.0); Lymphocytes # (A) 2.5 k/uL (1.0-4.8); Lymphocytes % (A) 36 %; MCH 30.7 pg (25.0-35.0); MCHC 34.8 g/dL (31.0-37.0); MCV 88.3 fL (80.0-100.0); Mean Platelet Volume 7.6; Monocytes # (A) 0.3 k/uL (0-1.0); Monocytes % (A) 4 %; Neutrophils # (A) 3.8 k/uL (1.3-7.7); Neutrophils % (A) 56 %; Platelet Count 217 k/uL (150-450); RBC 4.95 m/uL (3.80-5.40); RDW 12.7 % (11.5-15.5); WBC 6.8 k/uL (3.8-10.6)
[2019-08-19 14:54] LABS: ALT 19 U/L (9-52); AST 20 U/L (14-36); African American GFR (CKD) >90 (>60 ml/min/1.73 sqM); Alkaline Phosphatase 59 U/L (38-126); Amylase 51 U/L (30-110); Anion Gap 10 mmol/L; Blood Urea Nitrogen 4 mg/dL (7-17); Calcium 8.7 mg/dL (8.4-10.2); Carbon Dioxide 19 mmol/L (22-30); Chloride 114 mmol/L (98-107); Glucose 84 mg/dL (74-99); Non-African American GFR(CKD) >90 (>60 ml/min/1.73 sqM); Potassium 3.9 mmol/L (3.5-5.1); Sodium 143 mmol/L (137-145); Total Bilirubin 1.5 mg/dL (0.2-1.3); Total Protein 6.7 g/dL (6.3-8.2)
--- NOTE | 2019-08-19 15:05 | XR ---
KUB or graph history: Abdominal pain and vomiting Frontal KUB submitted on 2 images There are surgical clips in the right upper quadrant. Multiple air-fluid levels present without bowel distention. Lung bases are clear. There are overlying cardiac leads. Bone mineralization is normal. IMPRESSION: Correlate for enteritis. Follow-up as indicated.
[2019-08-19 15:31] LABS: Appearance,Urine Clear (Clear); Bilirubin,Urine Negative (Negative); Blood,Urine Negative (Negative); Color,Urine Light Yellow; Glucose,Urine (UA) Negative (Negative); Ketones,Urine Negative (Negative); Leukocyte Esterase,Urine Negative (Negative); Nitrite,Urine Negative (Negative); Protein,Urine Negative (Negative); Specific Gravity,Urine 1.002 (1.001-1.035); Urobilinogen,Urine <2.0 mg/dL (<2.0)
[2019-08-19] MEDS ORDERED: FAMOTIDINE 20 MG/2 ML VIAL IV STA (15:49)
[2019-08-19 16:09] VITALS: BP 95/66; PULSE 67
== END 2019-08-19 16:45 | disposition home or self-care (01) ==
LOC: EC 13:55
DX: K29.50 Unspecified chronic gastritis without bleeding (principal); K44.9 Diaphragmatic hernia without obstruction or gangrene; E86.0 Dehydration; F41.9 Anxiety disorder, unspecified; F32.9 Major depressive disorder, single episode, unspecified; J44.9 Chronic obstructive pulmonary disease, unspecified; F17.200 Nicotine dependence, unspecified, uncomplicated; Z88.6 Allergy status to analgesic agent; Z79.51 Long term (current) use of inhaled steroids; Z79.899 Other long term (current) drug therapy; Z85.42 Personal history of malignant neoplasm of other parts of uterus; Z90.49 Acquired absence of other specified parts of digestive tract; Z87.19 Personal history of other diseases of the digestive system
CPT/HCPCS: 36415; 80053; 82150; 83690; 85025; 81003; 74018; 96374; 96375; 96361; 99284; J2405

== ENCOUNTER 2019-08-28 09:15 | Observation (INO) | payer OTHER ==
[~2019-08-28 09:15] MED LIST changes: +DEXAMETHASONE SOD PHOSPHATE 10 MG/ML 1 ML VIAL IV ONE; +HEPARIN SODIUM,PORCINE 5,000 UNIT/ML 1 ML VIAL SQ ONE; -LACTATED RINGERS 1,000 ML IV SCH; +ONDANSETRON 4 MG/2 ML VIAL IVP ONE; +SCOPOLAMINE 1.5MG/72HR PATCH TRANSDERM ONE
[2019-08-28] MEDS: LACTATED RINGERS 1,000 ML IV SCH (10:10)
[2019-08-28] MEDS: MIDAZOLAM 2 MG/2 ML VIAL IV PRN ×2 (10:20→10:29)
--- NOTE | 2019-08-28 10:26 | P.GSHP ---
History of Present Illness H&P Date: 08/28/19 Chief Complaint: GERD This a 43-year-old female referred from Dr. Grady.The patient has had long- standing problems with reflux esophagitis. The patient underwent recent EGD is found have evidence of esophagitis. Patient has been well informed on the procedure of laparoscopic David fundoplication. The patient is aware the risk of the conversion to the open procedure, risk of injury to the stomach, liver and spleen. The patient is also a risk of recurrent GERD and dysphagia symptoms. The patient understands there is a postoperative diet of full liquids for 2 weeks after surgery. Past Medical History Past Medical History: Asthma, Cancer, COPD, Pneumonia Additional Past Medical History / Comment(s): hx of stomach ulcers, hx of H. Pylori, current frequent diarrhea, blood in stool, vomiting, uterine cancer, left carpal tunnel, restless leg syndrome History of Any Multi-Drug Resistant Organisms: None Reported Past Surgical History: Cholecystectomy, Hysterectomy, Orthopedic Surgery, Tubal Ligation Additional Past Surgical History / Comment(s): rt carpal tunnel Past Anesthesia/Blood Transfusion Reactions: No Reported Reaction Additional Past Anesthesia/Blood Transfusion Reaction / Comment(s): no hx blood transfusion Smoking Status: Current every day smoker - Past Family History Mother Family Medical History: No Reported History Medications and Allergies Home Medications Medication Instructions Recorded Confirmed Type ALPRAZolam [Xanax] 0.25 mg PO BID PRN 08/06/19 08/24/19 History Albuterol Inhaler [Ventolin Hfa 1 - 2 puff INHALATION RT-Q6H PRN 08/06/19 08/24/19 History Inhaler] Citalopram Hydrobromide [CeleXA] 10 mg PO QAM 08/06/19 08/24/19 History Dicyclomine [Bentyl] 20 mg PO QID 08/06/19 08/24/19 History Omeprazole 20 mg PO QAM 08/06/19 08/24/19 History Allergies Allergy/AdvReac Type Severity Reaction Status Date / Time ketorolac tromethamine Allergy Rash/Hives Verified 08/28/19 09:39 [From Toradol] tramadol Allergy Rash/Hives Verified 08/28/19 09:39 Surgical - Exam Vital Signs Temp Pulse Resp BP Pulse Ox 98.1 F 91 16 154/100 94 L 08/28/19 09:48 08/28/19 09:48 08/28/19 09:48 08/28/19 09:48 08/28/19 09:48 - General well developed, well nourished, no distress - Eyes PERRL - ENT normal pinna - Neck no masses - Respiratory normal expansion - Cardiovascular Rhythm: regular - Abdomen Abdomen: soft, non tender Assessment and Plan Assessment: GERD. We'll perform laparoscopic David fundal plication.
[2019-08-28] MEDS ORDERED: ALBUTEROL INHALER 60 PUFF/8 GM INHALER INHALATION ONE (10:50)
[2019-08-28] MEDS ORDERED: NEOSTIGMINE 1 MG/ML 10 ML VIAL ONE (10:50)
[2019-08-28] MEDS ORDERED: PROPOFOL 10 MG/ML 20 ML VIAL IV ONE (10:50)
[2019-08-28] MEDS ORDERED: ROCURONIUM BROMIDE 10 MG/ML 10 ML VIAL IV ONE (10:50)
[2019-08-28] MEDS ORDERED: LIDOCAINE 1% INJ 10MG/ML (20 ML MDV) ONE (10:50)
[2019-08-28] MEDS ORDERED: SUCCINYLCHOLINE CHLORIDE 100 MG/5 ML SYR IV ONE (10:50)
[2019-08-28] MEDS ORDERED: fentaNYL (PF) 50 MCG/ML 2 ML AMP ONE (10:50)
[2019-08-28] MEDS ORDERED: GLYCOPYRROLATE 0.2 MG/ML 2 ML VIAL ONE (10:50)
[2019-08-28] MEDS ORDERED: MIDAZOLAM 2 MG/2 ML VIAL ONE (10:50)
[2019-08-28] MEDS ORDERED: BUPIVACAIN-EPI 0.25%-1:200,000 30 ML VIAL SQ ONE (11:25)
[2019-08-28] MEDS ORDERED: ONDANSETRON 4 MG/2 ML VIAL IVP PRN (11:59)
--- NOTE | 2019-08-28 11:59 | P.OP ---
Date of Procedure: 08/28/19 Preoperative Diagnosis: GERD Postoperative Diagnosis: GERD Procedure(s) Performed: Laparoscopic David fundoplication Anesthesia: ANTONIETTA Surgeon: Juan José Cherry Estimated Blood Loss (ml): 5 Pathology: none sent Condition: stable Disposition: PACU Description of Procedure: Rachelhe patient was placed on the operating table in the supine position. The patient received general anesthesia. And was placed in dorsal lithotomy position. The patient was prepped and draped in the usual sterile fashion. The skin incision sites were anesthetized with 1% local Xylocaine. The skin was incised in the left periumbilical area and then using a blade less 5 mm trocar under direct visualization panel cavity was entered. After adequate insufflation the laparoscope was then placed into the peritoneal cavity. Next a 5 mm trochars placed in the right epigastric position. Another 5 millimeter trocar the right lateral position. Another 5 millimeter trocar in the left lateral position a 5 mm trocar is placed in the left epigastric position. And then the initial 5 mm trocar was exchanged for a 10 mm trocar. The left lateral lobe liver was retracted. The hernia was seen. The crural defect was then dissected using the Harmonic scissors device. A 360 crural dissection was performed the esophagus stomach was reduced back into the peritoneal Cavity. The crural defect was then closed using 2-0 Ethibond suture. Next the fundus of the stomach was mobilized using the Kiowa scissors device. and then a 58- [place]i bougie dilator was placed oropharynx passed into the esophagus and stomach the fundal plication wrap was then performed by grasping the fundus posteriorly and bringing it around the esophagus and stomach fundoplication was then performed using 2-0 Ethibond suture. Care was taken that the fundal location rested over top of the intra-abdominal esophagus. There was no injury seen to the stomach or esophagus. The dilator was then withdrawn. The abdomen was irrigated there is no bleeding seen. The trochars were then withdrawn and then skin incision sites were closed using 3-0 Monocryl suture Steri-Strips are applied. Patient thought procedure well and sent to recovery room in stable condition.
[2019-08-28] MEDS: HYDROmorphone 0.5 MG/0.5 ML SYRINGE IVP PRN ×3 (12:00→12:15)
[2019-08-28] MEDS ORDERED: diphenhydrAMINE 50 MG/ML 1 ML VIAL IVP ONE (12:28)
[2019-08-28] MEDS ORDERED: LACTATED RINGERS 1,000 ML IV ONE (13:20)
[2019-08-28] MEDS: METOCLOPRAMIDE 5 MG/ML 2 ML VIAL IVP SCH ×2 (14:21→18:31)
[2019-08-28] MEDS: D5-0.45% NACL WITH KCL 20MEQ/L 1,000 ML IV SCH ×2 (14:23→21:42)
[2019-08-28] MEDS ORDERED: ALBUTEROL NEBULIZED 2.5 MG/3 ML INHALATION PRN (15:08)
[2019-08-28] MEDS: HYDROmorphone 1 MG/ML 1 ML SYRINGE IVP PRN ×3 (15:52→22:31)
--- NOTE | 2019-08-28 15:53 | P.CONS ---
History of Present Illness - Reason for Consult Consult date: 08/28/19 Medical management Requesting physician: Juan José Cherry - Chief Complaint Hiatal hernia and severe GERD post Niesen fundoplication, history of asthma - History of Present Illness 43-year-old female one of Dr. Grady's patient with past medical history of severe GERD along with Hiatus hernia and recurrent episode of asthma with worsening symptoms for the last few years with failure to conservative management despite using PPI smaller meals and every precaution her symptoms are still worse. Patient was seen Dr. Cherry was scheduled for elective surgery which was done today successfully with no major complication she is up in the floor been admitted after surgery hemodynamically stable patient is having slight bit shortness of breath when she takes a deep breath no nausea vomiting. No worsening of asthma. Review of Systems CONSTITUTIONAL: Well-developed no acute respiratory distress. EYES: No icterus sclerae, no conjunctivitis. EARS, NOSE, MOUTH, THROAT, and FACE: No sore throat, lymphadenopathy, carotid bruits or deformity. RESPIRATORY: History of asthma with no wheezes CARDIOVASCULAR: No CP, Palpitation, PND, Orthopnea, or angina. GASTROINTESTINAL: Post surgery with mild discomfort around incision site with no nausea vomiting GENITOURINARY: Negative for Hematuria or UTI, no kidney stones. INTEGUMENT/BREAST: Negative for any muscular injury with mild osteoarthritis.. HEMATOLOGIC/LYMPHATIC: Negative for bleed or purpura. MUSCULOSKELTAL: Negative for Myalgia or arthralgia. NEURLOGICAL: No LOC, Sz or syncope, blurred vision dizziness or abnormality.. BEHAVIORAL/PSYCH: Negative. ENDOCRINE: Negative. Past Medical History Past Medical History: Asthma, Cancer, COPD, Pneumonia Additional Past Medical History / Comment(s): hx of stomach ulcers, hx of H. Pylori, current frequent diarrhea, blood in stool, vomiting, uterine cancer, left carpal tunnel, restless leg syndrome History of Any Multi-Drug Resistant Organisms: None Reported Past Surgical History: Cholecystectomy, Hysterectomy, Orthopedic Surgery, Tubal Ligation Additional Past Surgical History / Comment(s): rt carpal tunnel Past Anesthesia/Blood Transfusion Reactions: No Reported Reaction Additional Past Anesthesia/Blood Transfusion Reaction / Comm: no hx blood transfusion Smoking Status: Current every day smoker - Past Family History Mother Family Medical History: No Reported History Medications and Allergies Home Medications Medication Instructions Recorded Confirmed Type ALPRAZolam [Xanax] 0.25 mg PO BID PRN 08/06/19 08/24/19 History Albuterol Inhaler [Ventolin Hfa 1 - 2 puff INHALATION RT-Q6H PRN 08/06/19 08/24/19 History Inhaler] Citalopram Hydrobromide [CeleXA] 10 mg PO QAM 08/06/19 08/24/19 History Dicyclomine [Bentyl] 20 mg PO QID 08/06/19 08/24/19 History Omeprazole 20 mg PO QAM 08/06/19 08/24/19 History Allergies Allergy/AdvReac Type Severity Reaction Status Date / Time ketorolac tromethamine Allergy Rash/Hives Verified 08/28/19 09:39 [From Toradol] tramadol Allergy Rash/Hives Verified 08/28/19 09:39 Physical Exam Vitals: Vital Signs Temp Pulse Pulse Pulse Resp BP BP 08/28/19 15:25 68 16 128/80 08/28/19 14:55 64 16 126/80 08/28/19 14:25 74 20 135/90 08/28/19 14:10 76 20 136/91 08/28/19 13:55 72 20 148/88 08/28/19 13:40 98.7 F 69 24 139/86 08/28/19 13:00 78 16 120/74 08/28/19 12:45 67 16 125/71 08/28/19 12:30 73 16 140/82 08/28/19 12:15 74 18 147/93 08/28/19 11:58 99.0 F 103 H 14 159/85 08/28/19 10:29 83 16 136/87 08/28/19 09:48 98.1 F 91 16 154/100 Pulse Ox 08/28/19 15:25 97 08/28/19 14:55 100 08/28/19 14:25 99 08/28/19 14:10 99 08/28/19 13:55 98 08/28/19 13:40 93 L 08/28/19 13:00 95 08/28/19 12:45 95 08/28/19 12:30 95 08/28/19 12:15 98 08/28/19 11:58 94 L 08/28/19 10:29 95 12/06/19 09:48 94 L Intake and Output 12/06/19 12/06/19 12/06/19 06:59 14:59 22:59 Intake Total 1350 Output Total 130 Balance 1220 Intake: IV 1350 Output: Urine 100 Estimated Blood Loss 30 Other: # Voids 1 Weight 70.1 kg General Appearance: Alert, cooperative, no distress, appears stated age. Neck HEENT: Supple, no lymphadenopathy, no thyroid enlargement, no carotid bruits. Lungs: Clear to auscultation without crackles or wheezes no rhonchi, no deformity. Chest Wall: Chest wall normal expansion with deep inspiration no tenderness and no deformity was found on exam, no costochondral pain or discomfort. Heart: Regular rate and rhythm, S1, S2 normal, no murmur, rub or gallop. Back: Symmetric, no curvature, ROM normal, no CVA tenderness. Abdomen: Soft, non-tender, bowel sounds active all four quadrants, incision looks fine with mild distention from her surgery with no sign of infection no tenderness rebound or rigidity Extremities: Extremities normal, atraumatic, no cyanosis or edema. Pulses: 2+ and symmetric. Skin: Skin color, texture, tugor normal, no rashes or lesions. Neurologic: Alert oriented x3 cranial nerves II through XII intact, no motor deficit, no abnormal balance or gait. Assessment and Plan Plan: 1 status post David fundoplication: Stable post surgery resume home meds, pain management, watch for any hemodynamic change. 2 asthma: Resume Ventolin and nebulizer management if needed along with O2. 3 chronic depression and anxiety attacks: Has been on citalopram and alprazolam. 4 history of smoking: Patient is more social smoker refused nicotine patch at this point. 5 DVT prophylaxis: Patient be on heparin 5000 units subcutaneous twice a day along with knee-high JAVIER hose and Venodyne boots. 6 history of peptic ulcer disease with no bleeding also lately resume omeprazole. CODE STATUS: Full code. Dr. Cherry thank you much for the consult if I can be any further help to please let me know.
[2019-08-28] MEDS: DICYCLOMINE 20 MG TAB PO SCH ×2 (18:31→20:54)
[2019-08-28] MEDS: ALPRAZolam 0.25 MG TAB PO PRN (20:54)
[2019-08-29] MEDS: METOCLOPRAMIDE 5 MG/ML 2 ML VIAL IVP SCH ×4 (01:15→18:05)
[2019-08-29] MEDS: D5-0.45% NACL WITH KCL 20MEQ/L 1,000 ML IV SCH ×4 (01:19→22:01)
[2019-08-29] MEDS: LACTATED RINGERS 1,000 ML IV SCH (01:35)
[2019-08-29] MEDS: HYDROmorphone 1 MG/ML 1 ML SYRINGE IVP PRN ×3 (03:11→10:37)
[2019-08-29] MEDS: ALPRAZolam 0.25 MG TAB PO PRN (04:31)
[2019-08-29] MEDS: PANTOPRAZOLE 40 MG TABLET PO SCH (06:46)
[2019-08-29] MEDS: ENOXAPARIN 40 MG/0.4 ML SYRINGE SQ SCH (08:58)
[2019-08-29] MEDS: CITALOPRAM HYDROBROMIDE 10 MG TAB PO SCH (08:58)
[2019-08-29] MEDS: DICYCLOMINE 20 MG TAB PO SCH ×4 (08:58→22:00)
[2019-08-29 10:39] VITALS: BMI 30.2
--- NOTE | 2019-08-29 12:17 | P.PN ---
Subjective Progress Note Date: 08/29/19 43-year-old female one of Dr. Grady's patient with past medical history of severe GERD along with Hiatus hernia and recurrent episode of asthma with worsening symptoms for the last few years with failure to conservative management despite using PPI smaller meals and every precaution her symptoms are still worse. Patient was seen Dr. Cherry was scheduled for elective surgery which was done today successfully with no major complication she is up in the floor been admitted after surgery hemodynamically stable patient is having slight bit shortness of breath when she takes a deep breath no nausea vomiting. No worsening of asthma. 08/29: The patient complains of pain to the epigastric and left side of her abdomen as well at the base of her neck. She states she has walked on 3 occasions. On incentive spirometry she is only reaching 500-550 ML's. She denies having any nausea. No calf tenderness. Minimal pain to the surgical sites. She did eat breakfast and esophagram has been delayed until noon. Patient has been afebrile, blood pressure 126/80, heart rate 68, pulse ox 95% on room air Review of Systems CONSTITUTIONAL: Well-developed no acute respiratory distress. EYES: No icterus sclerae, no conjunctivitis. EARS, NOSE, MOUTH, THROAT, and FACE: No sore throat, lymphadenopathy, carotid bruits or deformity. RESPIRATORY: History of asthma with no wheezes CARDIOVASCULAR: No CP, Palpitation, PND, Orthopnea, or angina. GASTROINTESTINAL: Post surgery with mild discomfort around incision site, no nausea vomiting GENITOURINARY: Negative for Hematuria or UTI, no kidney stones. INTEGUMENT/BREAST: Negative for any muscular injury with mild osteoarthritis.. HEMATOLOGIC/LYMPHATIC: Negative for bleed or purpura. MUSCULOSKELTAL: Negative for Myalgia or arthralgia. No calf tenderness. NEURLOGICAL: No LOC, Sz or syncope, blurred vision dizziness or abnormality.. BEHAVIORAL/PSYCH: Negative. ENDOCRINE: Negative. Objective - Vital Signs Vital signs: Vital Signs Temp 98.7 F 08/29/19 08:45 Pulse 68 08/29/19 08:45 Resp 16 08/29/19 08:45 BP 126/80 08/29/19 08:45 Pulse Ox 95 08/29/19 08:45 Intake & Output 08/28/19 08/29/19 08/29/19 18:59 06:59 18:59 Intake Total 1350 1241 Output Total 130 1550 Balance 1220 -309 Weight 70.1 kg 70.1 kg Intake: IV 1350 Oral 1241 Output: Urine 100 1550 Estimated Blood Loss 30 Other: # Voids 1 1 - Exam General Appearance: Alert, cooperative, no distress, appears stated age. Patient is resting in bed and appears to be comfortable. Neck HEENT: Supple, no lymphadenopathy, no thyroid enlargement, no carotid bruits. Lungs: Clear to auscultation without crackles or wheezes no rhonchi, no deformity. Chest Wall: Chest wall normal expansion with deep inspiration no tenderness and no deformity was found on exam, no costochondral pain or discomfort. Heart: Regular rate and rhythm, S1, S2 normal, no murmur, rub or gallop. Back: Symmetric, no curvature, ROM normal, no CVA tenderness. Abdomen: Soft, non-tender, bowel sounds active all four quadrants, incision looks fine with mild distention from her surgery with no sign of infection no tenderness rebound or rigidity Extremities: Extremities normal, atraumatic, no cyanosis or edema. Pulses: 2+ and symmetric. Skin: Skin color, texture, tugor normal, no rashes or lesions. Neurologic: Alert oriented x3 cranial nerves II through XII intact, no motor deficit, no abnormal balance or gait. Assessment and Plan Plan: Assessment and Plan Plan: 1 status post David fundoplication: Stable post surgery resume home meds, pain management, watch for any hemodynamic change. 2 asthma, mild intermittent: Resume Ventolin and nebulizer management if needed along with O2. 3 recurrent depression and anxiety attacks: Has been on citalopram and alprazolam. 4 history of smoking: Patient is more social smoker refused nicotine patch at this point. 5 DVT prophylaxis: Patient be on heparin 5000 units subcutaneous twice a day along with knee-high JAVIER hose and Venodyne boots. 6 history of peptic ulcer disease with no bleeding also lately resume omeprazole. CODE STATUS: Full code. Discharge plan: Home Impression and plan of care have been directed as dictated by the signing physician. Rose Kimble nurse practitioner acting as scribe for signing physician.
--- NOTE | 2019-08-29 12:35 | P.PN ---
Subjective Progress Note Date: 08/29/19 CHIEF COMPLAINT: Status post David fundoplasty HISTORY OF PRESENT ILLNESS: The patient is a 43-year-old female status post fundoplication for gastric subcu reflux disease. She complains of moderate gas pain and pressure along the chest including abdomen. She is tolerating liquids. She completed her esophagram study today. "This is more painful than my gallbladder surgery." ROS: No reports of nausea and vomiting. No fevers or chills. PHYSICAL EXAM: VITAL SIGNS: Reviewed CONSTITUTIONAL: Well developed and in no acute distress. EYES: Conjuctivae without sclera icterus. Extraocular movements grossly intact. HEAD, EARS, NOSE, THROAT: Moist buccal mucosa. Head is atraumatic, normoce phalic. Hears conversational speech. No nasal drainage. RESPIRATORY: Non-labored respirations and equal bilateral excursions. CARDIOVASCULAR: Palpable 2+ radial pulses. Regular rate. Regular rhythm. ABDOMEN: Incisions clean dry and intact. MUSCULOSKELETAL: No gross deformity of the lower extremities noted. No clubbing. No cyanosis. SKIN: Good skin turgor. Well perfused. NEUROLOGIC: Cranial nerves I through XII grossly intact. No focal or lateralizing signs. PSYCH: Appropriate affect. Alert and oriented to person, place and time. STUDIES: Esophagram independent reviewed without leaks. ASSESSMENT: 1. Gastroesophageal reflux disease status post fundoplication PLAN: 1. Will add simethicone for gas pain 2. She has tolerated Vicodin in the past for pain. Start orals. 3. Continue to monitor. Objective - Vital Signs Vital signs: Vital Signs Temp 98.7 F 08/29/19 08:45 Pulse 68 08/29/19 08:45 Resp 16 08/29/19 08:45 BP 126/80 08/29/19 08:45 Pulse Ox 95 08/29/19 08:45 Intake & Output 08/28/19 08/29/19 08/29/19 18:59 06:59 18:59 Intake Total 1350 1241 Output Total 130 1550 Balance 1220 -309 Weight 70.1 kg 70.1 kg Intake: IV 1350 Oral 1241 Output: Urine 100 1550 Estimated Blood Loss 30 Other: # Voids 1 1 Assessment and Plan (1) Gastroesophageal reflux disease Current Visit: Yes Status: Acute Code(s): K21.9 - GASTRO-ESOPHAGEAL REFLUX DISEASE WITHOUT ESOPHAGITIS SNOMED Code(s): 559535238 (2) Status post David fundoplication Current Visit: Yes Status: Acute Code(s): Z98.890 - OTHER SPECIFIED POSTPROCEDURAL STATES SNOMED Code(s): 406291717
--- NOTE | 2019-08-29 12:37 | FL ---
EXAMINATION TYPE: FL esophagus cervic/pharynx DATE OF EXAM ORDERED: 08/29/2019 12:22 PM HISTORY: Status post Mukesh fundoplication. COMPARISON: None. FINDINGS: The patient drank contrast with ease. There is prompt egress of contrast from esophagus in to the stomach without evidence of extravasation. No significant free air was seen. The ligament of T leonie is in the normal location. IMPRESSION: STATUS POST MUKESH FUNDOPLICATION.
[2019-08-29] MEDS: SIMETHICONE 40 MG/0.6 ML DROPS 2,000 MG/30 ML BOTTLE PO SCH ×3 (13:46→22:01)
[2019-08-29] MEDS: HYDROcodone/APAP 5-325MG 1 EACH TAB PO PRN ×3 (13:46→22:00)
[2019-08-29 13:50] VITALS: RESP 18
[2019-08-29] MEDS: DEXAMETHASONE SOD PHOSPHATE 4 MG/ML 1 ML VIAL IV SCH (18:05)
[2019-08-30] MEDS: METOCLOPRAMIDE 5 MG/ML 2 ML VIAL IVP SCH ×3 (00:24→11:16)
[2019-08-30] MEDS: DEXAMETHASONE SOD PHOSPHATE 4 MG/ML 1 ML VIAL IV SCH ×3 (00:24→11:21)
[2019-08-30] MEDS: ALPRAZolam 0.25 MG TAB PO PRN (00:25)
[2019-08-30] MEDS: HYDROcodone/APAP 5-325MG 1 EACH TAB PO PRN ×3 (02:32→11:15)
[2019-08-30] MEDS: LACTATED RINGERS 1,000 ML IV SCH (06:33)
[2019-08-30] MEDS: PANTOPRAZOLE 40 MG TABLET PO SCH (06:34)
[2019-08-30] MEDS: D5-0.45% NACL WITH KCL 20MEQ/L 1,000 ML IV SCH (06:34)
[2019-08-30 08:23] VITALS: BP 135/88; PULSE 86; TEMP 97.6
[2019-08-30] MEDS: SIMETHICONE 40 MG/0.6 ML DROPS 2,000 MG/30 ML BOTTLE PO SCH (09:08)
[2019-08-30] MEDS: DICYCLOMINE 20 MG TAB PO SCH (09:08)
[2019-08-30] MEDS: ENOXAPARIN 40 MG/0.4 ML SYRINGE SQ SCH (09:09)
[2019-08-30] MEDS: CITALOPRAM HYDROBROMIDE 10 MG TAB PO SCH (09:43)
--- NOTE | 2019-08-30 11:07 | P.DS ---
Providers Date of admission: 08/28/19 22:31 Expected date of discharge: 08/30/19 Attending physician: Juan José Cherry Consults: 08/28/19 11:59 Consult Physician Routine Consulting Provider: Labmerto Oh Reason/Comments: Medical management Do you want consulting provider notified?: Yes Primary care physician: Arslan Edwards Kut - Discharge Diagnosis(es) (1) Gastroesophageal reflux disease Current Visit: Yes Status: Acute (2) Status post David fundoplication Current Visit: Yes Status: Acute Hospital Course: CHIEF COMPLAINT: Status post David fundoplasty HISTORY OF PRESENT ILLNESS: The patient is a 43-year-old female status post fundoplication for gastroesophageal reflux disease. She feels much better today. Her pain is controlled. She is tolerating David diet. Dietitian had seen her yesterday regarding David diet. ROS: No reports of nausea and vomiting. No fevers or chills. PHYSICAL EXAM: VITAL SIGNS: Reviewed CONSTITUTIONAL: Well developed and in no acute distress. EYES: Conjuctivae without sclera icterus. Extraocular movements grossly intact. HEAD, EARS, NOSE, THROAT: Moist buccal mucosa. Head is atraumatic, normocephalic. Hears conversational speech. No nasal drainage. RESPIRATORY: Non-labored respirations and equal bilateral excursions. CARDIOVASCULAR: Palpable 2+ radial pulses. Regular rate. Regular rhythm. ABDOMEN: Incisions clean dry and intact. Non-tender. MUSCULOSKELETAL: No gross deformity of the lower extremities noted. No clubbing. No cyanosis. SKIN: Good skin turgor. Well perfused. NEUROLOGIC: Cranial nerves I through XII grossly intact. No focal or lateral izing signs. PSYCH: Appropriate affect. Alert and oriented to person, place and time. ASSESSMENT: 1. Gastroesophageal reflux disease status post fundoplication PLAN: 1. Stable for discharge home 2. David diet reinforced including avoiding stores and carbonated beverages Vital Signs Temp 97.6 F 08/30/19 08:15 Pulse 86 08/30/19 08:15 Resp 18 08/30/19 08:15 BP 135/88 08/30/19 08:15 Pulse Ox 95 08/30/19 08:15 Intake & Output 08/29/19 08/30/19 08/30/19 18:59 06:59 18:59 Intake Total 481 Balance 481 Weight 70.1 kg Intake: Oral 481 Other: # Voids 1 1 # Bowel Movements 1 1 Patient Condition at Discharge: Good Plan - Discharge Summary Discharge Rx Participant: No New Discharge Prescriptions: New HYDROcodone/APAP 5-325MG [[place] 5-325] 1 tab PO Q4HR PRN 3 Days #18 tab PRN Reason: Pain No Action Albuterol Inhaler [Ventolin Hfa Inhaler] 1 - 2 puff INHALATION RT-Q6H PRN PRN Reason: Shortness Of Breath ALPRAZolam [Xanax] 0.25 mg PO BID PRN PRN Reason: Anxiety Citalopram Hydrobromide [CeleXA] 10 mg PO QAM Omeprazole 20 mg PO QAM Dicyclomine [Bentyl] 20 mg PO QID Discharge Medication List ALPRAZolam [Xanax] 0.25 mg PO BID PRN 08/06/19 [History] Albuterol Inhaler [Ventolin Hfa Inhaler] 1 - 2 puff INHALATION RT-Q6H PRN 08/06/19 [History] Citalopram Hydrobromide [CeleXA] 10 mg PO QAM 08/06/19 [History] Dicyclomine [Bentyl] 20 mg PO QID 08/06/19 [History] Omeprazole 20 mg PO QAM 08/06/19 [History] HYDROcodone/APAP 5-325MG [[place] 5-325] 1 tab PO Q4HR PRN 3 Days #18 tab 08/28/19 [Rx] Follow up Appointment(s)/Referral(s): Juan José Cherry MD [STAFF PHYSICIAN] - 1 Week Activity/Diet/Wound Care/Special Instructions: advid diet as instructed by Accounting Methods Analyst. see diet sheet. No heavy lifting, nothing strenuous until recheck. No driving while taking narcotics or until ok with DR. call office with any fever,chills, increased pain not covered by pain meds.increased redness or discolored drainage from puncture sites, difficulty swallowing or any concerns. continue to use your incentive,spirometery at home. Leave tape in place over puncture sites. May shower no baths or soaks. Discharge Disposition: HOME SELF-CARE
--- NOTE | 2019-08-30 12:24 | P.PN ---
Subjective Progress Note Date: 08/30/19 43-year-old female one of Dr. Grady's patient with past medical history of severe GERD along with Hiatus hernia and recurrent episode of asthma with worsening symptoms for the last few years with failure to conservative management despite using PPI smaller meals and every precaution her symptoms are still worse. Patient was seen Dr. Cherry was scheduled for elective surgery which was done today successfully with no major complication she is up in the floor been admitted after surgery hemodynamically stable patient is having slight bit shortness of breath when she takes a deep breath no nausea vomiting. No worsening of asthma. 08/29: The patient complains of pain to the epigastric and left side of her abdomen as well at the base of her neck. She states she has walked on 3 occasions. On incentive spirometry she is only reaching 500-550 ML's. She denies having any nausea. No calf tenderness. Minimal pain to the surgical sites. She did eat breakfast and esophagram has been delayed until noon. Patient has been afebrile, blood pressure 126/80, heart rate 68, pulse ox 95% on room air 08/30: Patient states she continues to have abdominal pain but is tolerable. Pain around her neck and upper chest is almost gone. She states she has been passing gas and she had a loose stool last evening a small bowel movement this morning. Abdomen is softer today. She is on a clear liquid diet. Patient has been afebrile, pulse ox 95% on room air, pulse 86, blood pressure 135/88. Anticipate discharge home today. Review of Systems CONSTITUTIONAL: Well-developed no acute respiratory distress. Denies fever, denies chills. EYES: No icterus sclerae, no conjunctivitis. EARS, NOSE, MOUTH, THROAT, and FACE: No sore throat, lymphadenopathy, carotid bruits or deformity. RESPIRATORY: History of asthma with no wheezes CARDIOVASCULAR: No CP, Palpitation, PND, Orthopnea, or angina. GASTROINTESTINAL: Post surgery with mild discomfort around incision site, no nausea vomiting GENITOURINARY: Negative for Hematuria or UTI, no kidney stones. INTEGUMENT/BREAST: Negative for any muscular injury with mild osteoarthritis.. HEMATOLOGIC/LYMPHATIC: Negative for bleed or purpura. MUSCULOSKELTAL: Negative for Myalgia or arthralgia. No calf tenderness. NEURLOGICAL: No LOC, Sz or syncope, blurred vision dizziness or abnormality.. BEHAVIORAL/PSYCH: Negative. ENDOCRINE: Negative. Objective - Vital Signs Vital signs: Vital Signs Temp 97.6 F 08/30/19 08:15 Pulse 86 08/30/19 08:15 Resp 18 08/30/19 08:15 BP 135/88 08/30/19 08:15 Pulse Ox 95 08/30/19 08:15 Intake & Output 08/29/19 08/30/19 08/30/19 18:59 06:59 18:59 Intake Total 481 Balance 481 Weight 70.1 kg Intake: Oral 481 Other: # Voids 1 # Bowel Movements 1 - Exam General Appearance: Alert, cooperative, no distress, appears stated age. Patient is resting in bed and appears to be comfortable. Neck HEENT: Supple, no lymphadenopathy, no thyroid enlargement, no carotid bruits. Lungs: Clear to auscultation without crackles or wheezes no rhonchi, no deformity. Chest Wall: Chest wall normal expansion with deep inspiration no tenderness and no deformity was found on exam, no costochondral pain or discomfort. Heart: Regular rate and rhythm, S1, S2 normal, no murmur, rub or gallop. Back: Symmetric, no curvature, ROM normal, no CVA tenderness. Abdomen: Soft, bowel sounds active all four quadrants, incision looks fine area and no abdominal distention. Extremities: Extremities normal, atraumatic, no cyanosis or edema. Pulses: 2+ and symmetric. Skin: Skin color, texture, tugor normal, no rashes or lesions. Neurologic: Alert oriented x3 cranial nerves II through XII intact, no motor deficit, no abnormal balance or gait. Assessment and Plan Plan: Assessment and Plan Plan: 1 status post David fundoplication: Stable post surgery resume home meds, pain management, watch for any hemodynamic change. 2 asthma, mild intermittent: Resume Ventolin and nebulizer management if needed along with O2. 3 recurrent depression and anxiety attacks: Has been on citalopram and alprazolam. 4 history of smoking: Patient is more social smoker refused nicotine patch at this point. 5 DVT prophylaxis: Patient be on heparin 5000 units subcutaneous twice a day along with knee-high JAVIER hose and Venodyne boots. 6 history of peptic ulcer disease with no bleeding also lately resume omeprazole. CODE STATUS: Full code. Discharge plan: Home today Impression and plan of care have been directed as dictated by the signing physician. Rose Kimble nurse practitioner acting as scribe for signing physician.
== END 2019-08-30 11:57 | disposition home or self-care (01) ==
LOC: OR 09:15 → 6PED 13:09 → OR 23:34
PROVIDERS: ADMIT Surgery; ATTEND Surgery
DX: K21.0 Gastro-esophageal reflux disease with esophagitis (principal); K44.9 Diaphragmatic hernia without obstruction or gangrene; J45.909 Unspecified asthma, uncomplicated; J44.9 Chronic obstructive pulmonary disease, unspecified; Z87.01 Personal history of pneumonia (recurrent); Z87.11 Personal history of peptic ulcer disease; Z85.42 Personal history of malignant neoplasm of other parts of uterus; G25.81 Restless legs syndrome; F32.9 Major depressive disorder, single episode, unspecified; F41.9 Anxiety disorder, unspecified; Z86.718 Personal history of other venous thrombosis and embolism; Z90.49 Acquired absence of other specified parts of digestive tract; Z86.19 Personal history of other infectious and parasitic diseases; Z90.710 Acquired absence of both cervix and uterus; Z98.51 Tubal ligation status; F17.200 Nicotine dependence, unspecified, uncomplicated; Z79.899 Other long term (current) drug therapy; Z88.6 Allergy status to analgesic agent; Z88.5 Allergy status to narcotic agent
CPT/HCPCS: 74210; 43280; G0378 ×2; J2250; J1200; J1644; J1100 ×3; J2710; J2765 ×3; J0690; J2405; J2001; J1650 ×2; J3010; J1170 ×3; J0330; J2704; Q9967

== ENCOUNTER 2019-09-04 13:51 | Emergency (ER) | payer OTHER ==
[2019-09-04 14:01] VITALS: RESP 16
--- NOTE | 2019-09-04 14:27 | ED ---
Abdominal Pain HPI - General Chief Complaint: Abdominal Pain Stated Complaint: Abd pain, Diarrhea, post surgery Time Seen by Provider: 09/04/19 14:16 Source: patient Mode of arrival: ambulatory Limitations: no limitations - History of Present Illness Initial Comments: 43-year-old female presenting today for chief complaint of severe abdominal cramping and pain and diarrhea status post abdominal surgery for pearl fundoplication repair performed 08/28/2019. Patient states she had a "hernia repair" performed 08/28upon chart review and appears patient had a Pearl fundoplication due to GERD. this was performed laparoscopically. Patient states that since the surgery she has had stabbing/cramping abdominal pain all over as well as diarrhea. She states it is watery and occurs multiple times a day. Denies blood in stool, fevers, sick contacts or vomiting. Patient states she has been taking norco as prescribed for the post operative pain but feel there may be a complication. Patient concerned of C. diff. Patient otherwise has no complaints such as chest pain, SOB, leg swelling. Patient VS stable on arrival afebrile. - Related Data Home Medications Medication Instructions Recorded Confirmed ALPRAZolam [Xanax] 0.25 mg PO BID PRN 08/06/19 08/24/19 Albuterol Inhaler [Ventolin Hfa 1 - 2 puff INHALATION RT-Q6H PRN 08/06/19 08/24/19 Inhaler] Citalopram Hydrobromide [CeleXA] 10 mg PO QAM 08/06/19 08/24/19 Dicyclomine [Bentyl] 20 mg PO QID 08/06/19 08/24/19 Omeprazole 20 mg PO QAM 08/06/19 08/24/19 Previous Rx's Medication Instructions Recorded HYDROcodone/APAP 5-325MG [[place] 1 tab PO Q4HR PRN 3 Days #18 tab 08/28/19 5-325] HYDROcodone/APAP 7.5-325MG [[place] 1 tab PO Q6HR PRN 3 Days #12 tab 09/04/19 7.5-325] Allergies Allergy/AdvReac Type Severity Reaction Status Date / Time ketorolac tromethamine Allergy Rash/Hives Verified 09/04/19 14:00 [From Toradol] tramadol Allergy Rash/Hives Verified 09/04/19 14:00 Review of Systems ROS Statement: Those systems with pertinent positive or pertinent negative responses have been documented in the HPI. ROS Other: All systems not noted in ROS Statement are negative. Past Medical History Past Medical History: Asthma, Cancer, COPD, Pneumonia Additional Past Medical History / Comment(s): hx of stomach ulcers, hx of H. Pylori, current frequent diarrhea, blood in stool, vomiting, uterine cancer, left carpal tunnel, restless leg syndrome History of Any Multi-Drug Resistant Organisms: None Reported Past Surgical History: Cholecystectomy, Hernia Repair, Hysterectomy, Orthopedic Surgery, Tubal Ligation Additional Past Surgical History / Comment(s): rt carpal tunnel Past Anesthesia/Blood Transfusion Reactions: No Reported Reaction Past Psychological History: Anxiety, Depression Smoking Status: Current every day smoker Past Alcohol Use History: Occasional Past Drug Use History: None Reported - Past Family History Mother Family Medical History: No Reported History General Exam - General Exam Comments Initial Comments: General: The patient is awake and alert, in no distress, appears uncomfortable with movements Eye: +3 mm pupils are equal, round and reactive to light, extra-ocular movements are intact. No nystagmus. There is normal conjunctiva bilaterally. No signs of icterus. Ears, nose, mouth and throat: There are moist mucous membranes and no oral lesions. Neck: The neck is supple, there is no tenderness or JVD. Cardiovascular: There is a regular rate and rhythm. No murmur, rub or gallop is appreciated. Respiratory: Lungs are clear to auscultation, respirations are non-labored, breath sounds are equal. No wheezes, stridor, rales, or rhonchi. Gastrointestinal: Soft, mildly-distended in gross appearance, diffuse mild-mode rate tenderness to palpation of the anterior abdomen without masses or organomegaly noted. There is no rebound or guarding present. 5 incision with glue over them small amount of dried blood, no evidence of dehiscence surrounding erythema or drainage Musculoskeletal: Normal ROM, no tenderness. Strength 5/5. Sensation intact. Pulses equal bilaterally 2+. Neurological: A&O x 3. CN II-XII intact grossly, There are no obvious motor or sensory deficits. Coordination appears grossly intact. Speech is normal. Skin: Skin is warm and dry and no rashes or lesions are noted. Psychiatric: Cooperative, appropriate mood & affect, normal judgment. Limitations: no limitations Course Vital Signs 09/04/19 13:57 Temperature 98.5 F Pulse Rate 85 Respiratory 16 Rate Blood Pressure 122/81 O2 Sat by Pulse 95 Oximetry Medical Decision Making - Medical Decision Making 43-year-old female presenting for postoperative pain, diarrhea. Concern for C. diff no diarrhea in ER. unable to provide sample. Mild to moderate pain on exam, appears somewhat consistent with postoperative status. CT revealed no acute intra-abdominal process noted a small ileus obstruction. No noted extensive colitis. No leukocytosis patient afebrile well-appearing patient states she ran out of her [place] for her postoperative pain and this provided prescription for 3 days. Otherwise at this time I feel patient is stable for discharge with a written order for C. diff testing and outpatient surgical f/u. Discussed case with Dr. Bhatt who was agreeable with care plan and discharge at this time. - Lab Data Result diagrams: 09/04/19 14:36 09/04/19 15:34 Lab Results 09/04/19 09/04/19 09/04/19 Range/Units 14:36 14:36 15:34 WBC 7.1 (3.8-10.6) k/uL RBC 5.49 H (3.80-5.40) m/uL Hgb 16.6 H (11.4-16.0) gm/dL Hct 48.5 H (34.0-46.0) % MCV 88.2 (80.0-100.0) fL MCH 30.3 (25.0-35.0) pg MCHC 34.3 (31.0-37.0) g/dL RDW 12.8 (11.5-15.5) % Plt Count 244 (150-450) k/uL Neutrophils % 60 % Lymphocytes % 31 % Monocytes % 5 % Eosinophils % 3 % Basophils % 1 % Neutrophils # 4.2 (1.3-7.7) k/uL Lymphocytes # 2.2 (1.0-4.8) k/uL Monocytes # 0.3 (0-1.0) k/uL Eosinophils # 0.2 (0-0.7) k/uL Basophils # 0.0 (0-0.2) k/uL Sodium 137 (137-145) mmol/L Potassium 4.0 (3.5-5.1) mmol/L Chloride 105 (98-107) mmol/L Carbon Dioxide 23 (22-30) mmol/L Anion Gap 9 mmol/L BUN 6 L (7-17) mg/dL Creatinine 0.57 (0.52-1.04) mg/dL Est GFR (CKD-EPI)AfAm >90 (>60 ml/min/1.73 sqM) Est GFR (CKD-EPI)NonAf >90 (>60 ml/min/1.73 sqM) Glucose 77 (74-99) mg/dL Calcium 8.9 (8.4-10.2) mg/dL Total Bilirubin 1.3 (0.2-1.3) mg/dL AST 14 (14-36) U/L ALT 26 (4-34) U/L Alkaline Phosphatase 72 (38-126) U/L Total Protein 6.5 (6.3-8.2) g/dL Albumin 3.8 (3.5-5.0) g/dL Lipase 14 L (23-300) U/L Urine Color Colorless Urine Appearance Clear (Clear) Urine pH 5.5 (5.0-8.0) Ur Specific [place] 1.001 (1.001-1.035) Urine Protein Negative (Negative) Urine Glucose (UA) Negative (Negative) Urine Ketones Negative (Negative) Urine Blood Negative (Negative) Urine Nitrite Negative (Negative) Urine Bilirubin Negative (Negative) Urine Urobilinogen <2.0 (<2.0) mg/dL Ur Leukocyte Esterase Negative (Negative) Disposition Clinical Impression: Diarrhea, Abdominal cramping, Post-operative pain Disposition: HOME SELF-CARE Condition: Good Instructions (If sedation given, give patient instructions): Acute Diarrhea (ED) Additional Instructions: Please use medication as discussed. Please follow-up with surgeon, call on Saturday to discussed visit today and appropriate follow-up time. Please return to emergency room if the symptoms increase or worsen or for any other concerns. Prescriptions: HYDROcodone/APAP 7.5-325MG [[place] 7.5-325] 1 tab PO Q6HR PRN 3 Days #12 tab PRN Reason: Pain Is patient prescribed a controlled substance at d/c from ED?: No Referrals: Arslan Grady MD [Primary Care Provider] - 1-2 days Time of Disposition: 16:21
[2019-09-04 14:45] LABS: Basophils % (A) 1 %; Eosinophils # (A) 0.2 k/uL (0-0.7); Eosinophils % (A) 3 %; HCT 48.5 % (34.0-46.0); HGB 16.6 gm/dL (11.4-16.0); Lymphocytes # (A) 2.2 k/uL (1.0-4.8); Lymphocytes % (A) 31 %; MCH 30.3 pg (25.0-35.0); MCHC 34.3 g/dL (31.0-37.0); MCV 88.2 fL (80.0-100.0); Mean Platelet Volume 9.4; Monocytes # (A) 0.3 k/uL (0-1.0); Monocytes % (A) 5 %; Neutrophils # (A) 4.2 k/uL (1.3-7.7); Neutrophils % (A) 60 %; Platelet Count 244 k/uL (150-450); RBC 5.49 m/uL (3.80-5.40); RDW 12.8 % (11.5-15.5); WBC 7.1 k/uL (3.8-10.6)
[2019-09-04 14:59] LABS: Appearance,Urine Clear (Clear); Bilirubin,Urine Negative (Negative); Blood,Urine Negative (Negative); Color,Urine Colorless; Glucose,Urine (UA) Negative (Negative); Ketones,Urine Negative (Negative); Leukocyte Esterase,Urine Negative (Negative); Nitrite,Urine Negative (Negative); PH, Urine 5.5 (5.0-8.0); Protein,Urine Negative (Negative); Specific Gravity,Urine 1.001 (1.001-1.035); Urobilinogen,Urine <2.0 mg/dL (<2.0)
[2019-09-04] MEDS ORDERED: MORPHINE SULFATE 4 MG/ML SYRINGE IVP STA (15:07)
[2019-09-04] MEDS ORDERED: SODIUM CHLORIDE 0.9% 500 ML 500 ML IV ONE (15:15)
--- NOTE | 2019-09-04 15:35 | CT ---
EXAMINATION TYPE: CT abdomen pelvis w con DATE OF EXAM: 09/04/2019 COMPARISON: 04/10/2017 INDICATION: Abdominal pain post op hiatal hernia repair 12-6. Abdominal cramping and diarrhea. DLP: 905.8 mGycm, Automated exposure control for dose reduction was used. CONTRAST: 100 mL of Isovue 300. Study performed without Oral Contrast TECHNIQUE: Axial images were obtained from above the diaphragm to the pubic rami in the axial plane a t 5 mm thick sections. Reconstructed images are reviewed on the computer in the coronal plane. FINDINGS: Limited CT sections are obtained the lung bases. The lung bases are clear. CT ABDOMEN: Neftaly fundoplication is evident. Liver: Normal Spleen: Normal Pancreas: Normal Adrenal glands: The adrenal glands are normal. Gallbladder: Surgically absent Kidneys: No masses are evident. No hydronephrosis is present. No cysts are present. Delayed images were obtained through the kidneys, which remain unremarkable. Aorta: Vascular calcification is within the aorta. Inferior vena cava: Normal. CT PELVIS: There is some fluid-filled small bowel loops in the left lower quadrant compatible with fo zhao mild ileus. Loops of bowel within the abdomen and pelvis are otherwise normal. Appendix: Not visualized. No suspicious inflammatory changes or dilated tubular structures are eviden t. Urinary bladder: Normal. Genitourinary structures: Uterus is absent. Adnexal regions appear unremarkable. Osseous structures: No suspicious lytic or sclerotic lesions. IMPRESSIONS: 1. Focal small bowel ileus left lower quadrant of uncertain etiology.
[2019-09-04 15:56] LABS: ALT 26 U/L (4-34); AST 14 U/L (14-36); African American GFR (CKD) >90 (>60 ml/min/1.73 sqM); Albumin 3.8 g/dL (3.5-5.0); Alkaline Phosphatase 72 U/L (38-126); Anion Gap 9 mmol/L; Blood Urea Nitrogen 6 mg/dL (7-17); Calcium 8.9 mg/dL (8.4-10.2); Carbon Dioxide 23 mmol/L (22-30); Chloride 105 mmol/L (98-107); Glucose 77 mg/dL (74-99); Non-African American GFR(CKD) >90 (>60 ml/min/1.73 sqM); Sodium 137 mmol/L (137-145); Total Bilirubin 1.3 mg/dL (0.2-1.3); Total Protein 6.5 g/dL (6.3-8.2)
[2019-09-04 17:15] VITALS: BP 128/87; PULSE 82; TEMP 98.3
== END 2019-09-04 17:14 | disposition home or self-care (01) ==
LOC: EC 13:51
DX: G89.18 Other acute postprocedural pain (principal); R10.9 Unspecified abdominal pain; R19.7 Diarrhea, unspecified; J44.9 Chronic obstructive pulmonary disease, unspecified; K56.7 Ileus, unspecified; F41.9 Anxiety disorder, unspecified; F32.9 Major depressive disorder, single episode, unspecified; F17.200 Nicotine dependence, unspecified, uncomplicated; K21.9 Gastro-esophageal reflux disease without esophagitis; Z79.899 Other long term (current) drug therapy; Z88.5 Allergy status to narcotic agent; Z88.6 Allergy status to analgesic agent; Z85.42 Personal history of malignant neoplasm of other parts of uterus; Z90.49 Acquired absence of other specified parts of digestive tract; Z90.710 Acquired absence of both cervix and uterus; Z98.890 Other specified postprocedural states
CPT/HCPCS: 99284; 96374; 96361; 36415; 80053; 83690; 85025; 81003; 74177; J2270; Q9967

== ENCOUNTER 2019-09-06 21:58 | Inpatient (IN) | payer OTHER ==
[2019-09-06] MEDS ORDERED: ONDANSETRON 4 MG/2 ML VIAL IVP STA (22:21)
[2019-09-06] MEDS ORDERED: MORPHINE SULFATE 4 MG/ML SYRINGE IV STA (22:21)
[2019-09-06 22:49] LABS: Basophils % (A) 0 %; Eosinophils # (A) 0.1 k/uL (0-0.7); Eosinophils % (A) 2 %; HCT 45.3 % (34.0-46.0); HGB 15.6 gm/dL (11.4-16.0); Lymphocytes # (A) 1.9 k/uL (1.0-4.8); Lymphocytes % (A) 33 %; MCH 30.3 pg (25.0-35.0); MCHC 34.5 g/dL (31.0-37.0); MCV 87.7 fL (80.0-100.0); Mean Platelet Volume 9.5; Monocytes # (A) 0.5 k/uL (0-1.0); Monocytes % (A) 8 %; Neutrophils # (A) 3.1 k/uL (1.3-7.7); Neutrophils % (A) 55 %; Platelet Count 214 k/uL (150-450); RBC 5.16 m/uL (3.80-5.40); RDW 12.6 % (11.5-15.5); WBC 5.8 k/uL (3.8-10.6)
[2019-09-06 22:54] LABS: Appearance,Urine Clear (Clear); Bilirubin,Urine Negative (Negative); Blood,Urine Negative (Negative); Color,Urine Light Yellow; Glucose,Urine (UA) Negative (Negative); Ketones,Urine Negative (Negative); Leukocyte Esterase,Urine Negative (Negative); Nitrite,Urine Negative (Negative); PH, Urine 6.5 (5.0-8.0); Protein,Urine Negative (Negative); Specific Gravity,Urine 1.002 (1.001-1.035); Urobilinogen,Urine <2.0 mg/dL (<2.0)
[2019-09-06 22:55] LABS: ALT 356 U/L (4-34); AST 384 U/L (14-36); African American GFR (CKD) >90 (>60 ml/min/1.73 sqM); Albumin 4.7 g/dL (3.5-5.0); Alkaline Phosphatase 228 U/L (38-126); Amylase 34 U/L (30-110); Anion Gap 11 mmol/L; Blood Urea Nitrogen 3 mg/dL (7-17); Calcium 9.6 mg/dL (8.4-10.2); Carbon Dioxide 24 mmol/L (22-30); Chloride 102 mmol/L (98-107); Glucose 105 mg/dL (74-99); Non-African American GFR(CKD) >90 (>60 ml/min/1.73 sqM); Sodium 137 mmol/L (137-145); Total Bilirubin 2.2 mg/dL (0.2-1.3); Total Protein 7.7 g/dL (6.3-8.2)
[2019-09-07] MEDS ORDERED: HYDROmorphone 0.5 MG/0.5 ML SYRINGE IVP STA (00:06)
[2019-09-07] MEDS ORDERED: SODIUM CHLORIDE 0.9% 1,000 ML IV ONE (00:06)
[2019-09-07] MEDS ORDERED: NALOXONE 0.4 MG/ML 1 ML VIAL IV PRN (00:07)
--- NOTE | 2019-09-07 00:16 | ED ---
Abdominal Pain HPI - General Chief Complaint: Abdominal Pain Stated Complaint: Abd pain Time Seen by Provider: 09/06/19 22:04 Source: patient Mode of arrival: ambulatory Limitations: no limitations - History of Present Illness Initial Comments: this patient is a 43-year-old woman who presents to be valid for epigastric abdominal pain. She states that she had been doing okay until this afternoon when she started feeling a little bit of nausea. In the evening she began having epigastric abdominal pain that was cramping and sharp. She states that she tried her home medicine, but it didn't help so she presented here to be evaluated. She did have a laparoscopic David fundoplication performed on August 28, with Dr. Cherry, and states that she had been doing well after the surgery. She denies infectious symptoms including no fever or chills, chest pain, palpitations or syncope. No change in urination. The patient noted that she had not had a bowel movement today. MD Complaint: abdominal pain Onset/Timin -: hour(s) Location: epigastric Radiation: none Migration to: no migration Severity: severe Quality: cramping, stabbing Consistency: constant Improves With: nothing Worsens With: nothing Associated Symptoms: nausea - Related Data Home Medications Medication Instructions Recorded Confirmed ALPRAZolam [Xanax] 0.25 mg PO BID PRN 08/06/19 08/24/19 Albuterol Inhaler [Ventolin Hfa 1 - 2 puff INHALATION RT-Q6H PRN 08/06/19 08/24/19 Inhaler] Citalopram Hydrobromide [CeleXA] 10 mg PO QAM 08/06/19 08/24/19 Dicyclomine [Bentyl] 20 mg PO QID 08/06/19 08/24/19 Omeprazole 20 mg PO QAM 08/06/19 08/24/19 Previous Rx's Medication Instructions Recorded HYDROcodone/APAP 5-325MG [[place] 1 tab PO Q4HR PRN 3 Days #18 tab 08/28/19 5-325] HYDROcodone/APAP 7.5-325MG [[place] 1 tab PO Q6HR PRN 3 Days #12 tab 09/04/19 7.5-325] Allergies Allergy/AdvReac Type Severity Reaction Status Date / Time ketorolac tromethamine Allergy Rash/Hives Verified 09/06/19 22:03 [From Toradol] tramadol Allergy Rash/Hives Verified 09/06/19 22:03 Review of Systems ROS Statement: Those systems with pertinent positive or pertinent negative responses have been documented in the HPI. ROS Other: All systems not noted in ROS Statement are negative. Constitutional: Denies: fever, chills, weakness Respiratory: Denies: cough, dyspnea Cardiovascular: Denies: chest pain, palpitations Gastrointestinal: Reports: abdominal pain, nausea. Denies: vomiting, diarrhea, melena, hematochezia Genitourinary: Denies: dysuria, frequency, hematuria Musculoskeletal: Denies: back pain Skin: Denies: rash Neurological: Denies: headache Past Medical History Past Medical History: Asthma, Cancer, COPD, Pneumonia Additional Past Medical History / Comment(s): hx of stomach ulcers, hx of H. Pylori, current frequent diarrhea, blood in stool, vomiting, uterine cancer, left carpal tunnel, restless leg syndrome History of Any Multi-Drug Resistant Organisms: None Reported Past Surgical History: Cholecystectomy, Hernia Repair, Hysterectomy, Orthopedic Surgery, Tubal Ligation Additional Past Surgical History / Comment(s): rt carpal tunnel Past Anesthesia/Blood Transfusion Reactions: No Reported Reaction Past Psychological History: Anxiety, Depression Smoking Status: Current every day smoker Past Alcohol Use History: Occasional Past Drug Use History: None Reported - Past Family History Mother Family Medical History: No Reported History General Exam Limitations: no limitations General appearance: alert, in no apparent distress Head exam: Present: atraumatic, normocephalic Eye exam: Present: normal appearance. Absent: scleral icterus, conjunctival injection Neck exam: Present: normal inspection, full ROM Respiratory exam: Present: normal lung sounds bilaterally. Absent: respiratory distress, wheezes, rales, rhonchi, stridor Cardiovascular Exam: Present: regular rate, normal rhythm, normal heart sounds. Absent: systolic murmur, diastolic murmur, rubs, gallop GI/Abdominal exam: Present: soft, tenderness (mild epigastric tenderness without rebound or guarding), normal bowel sounds. Absent: distended, guarding, rebound, rigid, mass, pulsatile mass, hernia Extremities exam: Present: normal inspection, normal capillary refill. Absent: pedal edema Back exam: Present: normal inspection. Absent: CVA tenderness (R), CVA tenderness (L) Neurological exam: Present: alert Skin exam: Present: warm, dry, intact, normal color. Absent: rash Course Vital Signs 09/06/19 09/06/19 09/06/19 22:02 22:45 23:30 Temperature 98.6 F 98.3 F Pulse Rate 94 80 80 Respiratory 18 18 18 Rate Blood Pressure 141/95 147/94 143/92 O2 Sat by Pulse 97 94 L 98 Oximetry Medical Decision Making - Lab Data Result diagrams: 09/06/19 22:18 09/06/19 22:18 Lab Results 09/06/19 09/06/19 09/06/19 Range/Units 22:18 22:18 22:35 WBC 5.8 (3.8-10.6) k/uL RBC 5.16 (3.80-5.40) m/uL Hgb 15.6 (11.4-16.0) gm/dL Hct 45.3 (34.0-46.0) % MCV 87.7 (80.0-100.0) fL MCH 30.3 (25.0-35.0) pg MCHC 34.5 (31.0-37.0) g/dL RDW 12.6 (11.5-15.5) % Plt Count 214 (150-450) k/uL Neutrophils % 55 % Lymphocytes % 33 % Monocytes % 8 % Eosinophils % 2 % Basophils % 0 % Neutrophils # 3.1 (1.3-7.7) k/uL Lymphocytes # 1.9 (1.0-4.8) k/uL Monocytes # 0.5 (0-1.0) k/uL Eosinophils # 0.1 (0-0.7) k/uL Basophils # 0.0 (0-0.2) k/uL Sodium 137 (137-145) mmol/L Potassium 4.0 (3.5-5.1) mmol/L Chloride 102 (98-107) mmol/L Carbon Dioxide 24 (22-30) mmol/L Anion Gap 11 mmol/L BUN 3 L (7-17) mg/dL Creatinine 0.53 (0.52-1.04) mg/dL Est GFR (CKD-EPI)AfAm >90 (>60 ml/min/1.73 sqM) Est GFR (CKD-EPI)NonAf >90 (>60 ml/min/1.73 sqM) Glucose 105 H (74-99) mg/dL Calcium 9.6 (8.4-10.2) mg/dL Total Bilirubin 2.2 H (0.2-1.3) mg/dL AST 384 H (14-36) U/L ALT 356 H (4-34) U/L Alkaline Phosphatase 228 H (38-126) U/L Total Protein 7.7 (6.3-8.2) g/dL Albumin 4.7 (3.5-5.0) g/dL Amylase 34 (30-110) U/L Lipase 22 L (23-300) U/L Urine Color Light Yellow Urine Appearance Clear (Clear) Urine pH 6.5 (5.0-8.0) Ur Specific [place] 1.002 (1.001-1.035) Urine Protein Negative (Negative) Urine Glucose (UA) Negative (Negative) Urine Ketones Negative (Negative) Urine Blood Negative (Negative) Urine Nitrite Negative (Negative) Urine Bilirubin Negative (Negative) Urine Urobilinogen <2.0 (<2.0) mg/dL Ur Leukocyte Esterase Negative (Negative) - EKG Data -: EKG Interpreted by Id EKG shows normal: sinus rhythm, axis (normal), intervals (normal), QRS complexes (normal), ST-T waves (T inversions in leads V1 through V4. These are present in comparison.) Rate: normal (rate 79 bpm) Disposition Clinical Impression: Abdominal pain, Transaminitis, Elevated bilirubin Disposition: ADMITTED IP TO THIS [facility] Condition: Good
[2019-09-07] MEDS: SODIUM CHLORIDE 0.9% 1,000 ML IV SCH ×3 (01:25→19:47)
[2019-09-07] MEDS: HYDROmorphone 0.5 MG/0.5 ML SYRINGE IVP PRN ×4 (03:01→12:31)
[2019-09-07] MEDS: ONDANSETRON 4 MG/2 ML VIAL IVP PRN ×2 (06:22→19:21)
--- NOTE | 2019-09-07 07:57 | US ---
EXAMINATION TYPE: US abdomen limited DATE OF EXAM: 09/07/2019 COMPARISON: NONE CLINICAL HISTORY: abdominal pain. transaminitis. Attention RUQ. Abdominal pain, transaminitis, cholec ystectomy, hiatal hernia repair 08/28/19 EXAM MEASUREMENTS: Liver Length: 16.3 cm Gallbladder Wall: Surgically absent CBD: 1.1 cm Right Kidney: 10.3 x 3.9 x 4.3 cm Pancreas: Obscured by bowel gas Liver: appears wnl Gallbladder: surgically absent Evidence for sonographic Koo's sign: no CBD: Just above upper limits of normal Right Kidney: no evidence of hydronephrosis or mass IMPRESSION: 1. Dilation of the common bile duct is just above normal limits for post cholecystectomy patient in s ize. If serum laboratory values and clinical exam are fitting MRCP could evaluate for distal obstruct ion. 2. Liver is homogeneous sonographically despite transaminitis. 3. Obscuration of the pancreas by bowel gas.
[2019-09-07] MEDS: FAMOTIDINE 20 MG/2 ML VIAL IV SCH ×2 (08:09→21:01)
[2019-09-07 10:29] LABS: ALT 230 U/L (4-34); AST 128 U/L (14-36); African American GFR (CKD) >90 (>60 ml/min/1.73 sqM); Albumin 3.6 g/dL (3.5-5.0); Alkaline Phosphatase 165 U/L (38-126); Anion Gap 7 mmol/L; Blood Urea Nitrogen 5 mg/dL (7-17); Calcium 8.8 mg/dL (8.4-10.2); Carbon Dioxide 27 mmol/L (22-30); Chloride 107 mmol/L (98-107); Glucose 87 mg/dL (74-99); Non-African American GFR(CKD) >90 (>60 ml/min/1.73 sqM); Potassium 4.5 mmol/L (3.5-5.1); Sodium 141 mmol/L (137-145); Total Bilirubin 2.3 mg/dL (0.2-1.3); Total Protein 6.2 g/dL (6.3-8.2)
[2019-09-07] MEDS ORDERED: BISACODYL 10 MG SUPP RECTAL STA (13:32)
[2019-09-07] MEDS ORDERED: SENNOSIDES-DOCUSATE SODIUM 1 EACH TAB PO STA (13:33)
--- NOTE | 2019-09-07 13:55 | P.GSHP ---
History of Present Illness H&P Date: 09/07/19 Chief Complaint: Abdominal pain CHIEF COMPLAINT: Abdominal pain HISTORY OF PRESENT ILLNESS: 43-year-old female who recently underwent laparoscopic David fundoplication on 08/28/[address] Cherry. Patient presented back to the hospital with a chief complaint of abdominal pain. Patient reports since her surgery she has been having epigastric discomfort and left and right upper quadrant discomfort. She reports diarrhea until last week and now reports constipation. She states she hasn't had a bowel movement in 4 days and feels constipated. She feels bloated. She has been tolerating clear liquids at home. She has not attempted any soft foods. PAST MEDICAL HISTORY: See list. PAST SURGICAL HISTORY: See list. SOCIAL HISTORY: No illicit drug use. REVIEW OF SYSTEMS: CONSTITUTIONAL: Denies fever or chills. HEENT: Denies blurred vision, vision changes, or eye pain. Denies hemoptysis CARDIOVASCULAR: Denies chest pain or pressure. RESPIRATORY: No shortness of breath. GASTROINTESTINAL: Refer to HPI for pertinent findings HEMATOLOGIC: Denies bleeding disorders. GENITOURINARY: Denies any blood in urine. SKIN: Denies pruitis. Denies rash. PHYSICAL EXAM: VITAL SIGNS: Reviewed. GENERAL: Well-developed in no acute distress. HEENT: No sclera icterus. Extraocular movements grossly intact. Moist buccal mucosa. Head is atraumatic, normocephalic. ABDOMEN: Soft. Mildly bloated. Surgical sites clean dry and intact without drainage or signs of infection. NEUROLOGIC: Alert and oriented. Cranial nerves II through XII grossly intact. LABORATORY DATA: WBC on admission 5.8. Total bilirubin 2.2. Repeat 2.3. AST 384. Repeat 128. ALT 356. Repeat 230. Alkaline phosphatase 228. Repeat 165. IMAGING: Abdominal ultrasound: dilation of the common bile duct just above normal limits for her postcholecystectomy patient. ASSESSMENT: 1. History of GERD with recent laparoscopic David fundoplication 2. Transaminitis with hyperbilirubinemia PLAN: Discontinue Dilaudid. Resume [place] Miralax daily to prevent constipation Dulcolax suppository 1 and Senokot x1 dose Begin David clear liquid diet. May advance to David full liquids if patient tolerates. no straws or carbonated beverages. Continue to monitor LFTs Further recommendations pending evaluation by Dr. Cherry this afternoon Nurse practitioner note has been reviewed by physician. Signing provider agrees with the documented findings, assessment, and plan of care. Past Medical History Past Medical History: Asthma, Cancer, COPD, Pneumonia Additional Past Medical History / Comment(s): hx of stomach ulcers, hx of H. Pylori, current frequent diarrhea, blood in stool, vomiting, uterine cancer, left and right carpal tunnel, restless leg syndrome History of Any Multi-Drug Resistant Organisms: None Reported Past Surgical History: Cholecystectomy, Hernia Repair, Hysterectomy, Orthopedic Surgery, Tubal Ligation Additional Past Surgical History / Comment(s): rt carpal tunnel Past Anesthesia/Blood Transfusion Reactions: No Reported Reaction Past Psychological History: Anxiety, Depression Smoking Status: Current some day smoker Past Alcohol Use History: Occasional Additional Past Alcohol Use History / Comment(s): patient states she has had 3 cigarettes since the beginning of the month. Past Drug Use History: None Reported - Past Family History Mother Family Medical History: No Reported History Medications and Allergies Home Medications Medication Instructions Recorded Confirmed Type ALPRAZolam [Xanax] 0.25 mg PO BID PRN 08/06/19 09/07/19 History Citalopram Hydrobromide [CeleXA] 10 mg PO QAM 08/06/19 09/07/19 History Dicyclomine [Bentyl] 20 mg PO QID 08/06/19 09/07/19 History Omeprazole 20 mg PO QAM 08/06/19 09/07/19 History HYDROcodone/APAP 7.5-325MG [[place] 1 tab PO Q6HR PRN 3 Days #12 tab 09/04/19 09/07/19 Rx 7.5-325] Docusate [Colace] 100 mg PO DAILY 09/07/19 09/07/19 History Allergies Allergy/AdvReac Type Severity Reaction Status Date / Time ketorolac tromethamine Allergy Rash/Hives Verified 09/07/19 09:41 [From Toradol] tramadol Allergy Rash/Hives Verified 09/07/19 09:41 Surgical - Exam Vital Signs Temp Pulse Resp BP Pulse Ox 98.6 F 94 18 141/95 97 09/06/19 22:02 09/06/19 22:02 09/06/19 22:02 09/06/19 22:02 09/06/19 22:02 Results - Labs 09/06/19 22:18 09/07/19 09:46 Abnormal Lab Results - Last 24 Hours (Table) 09/06/19 09/07/19 Range/Units 22:18 09:46 BUN 3 L 5 L (7-17) mg/dL Glucose 105 H (74-99) mg/dL Total Bilirubin 2.2 H 2.3 H (0.2-1.3) mg/dL AST 384 H 128 H (14-36) U/L ALT 356 H 230 H (4-34) U/L Alkaline Phosphatase 228 H 165 H (38-126) U/L Total Protein 6.2 L (6.3-8.2) g/dL Lipase 22 L (23-300) U/L Diabetes panel 09/06/19 09/07/19 Range/Units 22:18 09:46 Sodium 137 141 (137-145) mmol/L Potassium 4.0 4.5 (3.5-5.1) mmol/L Chloride 102 107 (98-107) mmol/L Carbon Dioxide 24 27 (22-30) mmol/L BUN 3 L 5 L (7-17) mg/dL Creatinine 0.53 0.72 (0.52-1.04) mg/dL Glucose 105 H 87 (74-99) mg/dL Calcium 9.6 8.8 (8.4-10.2) mg/dL AST 384 H 128 H (14-36) U/L ALT 356 H 230 H (4-34) U/L Alkaline Phosphatase 228 H 165 H (38-126) U/L Total Protein 7.7 6.2 L (6.3-8.2) g/dL Albumin 4.7 3.6 (3.5-5.0) g/dL Calcium panel 09/06/19 09/07/19 Range/Units 22:18 09:46 Calcium 9.6 8.8 (8.4-10.2) mg/dL Albumin 4.7 3.6 (3.5-5.0) g/dL Pituitary panel 09/06/19 09/07/19 Range/Units 22:18 09:46 Sodium 137 141 (137-145) mmol/L Potassium 4.0 4.5 (3.5-5.1) mmol/L Chloride 102 107 (98-107) mmol/L Carbon Dioxide 24 27 (22-30) mmol/L BUN 3 L 5 L (7-17) mg/dL Creatinine 0.53 0.72 (0.52-1.04) mg/dL Glucose 105 H 87 (74-99) mg/dL Calcium 9.6 8.8 (8.4-10.2) mg/dL Adrenal panel 09/06/19 09/07/19 Range/Units 22:18 09:46 Sodium 137 141 (137-145) mmol/L Potassium 4.0 4.5 (3.5-5.1) mmol/L Chloride 102 107 (98-107) mmol/L Carbon Dioxide 24 27 (22-30) mmol/L BUN 3 L 5 L (7-17) mg/dL Creatinine 0.53 0.72 (0.52-1.04) mg/dL Glucose 105 H 87 (74-99) mg/dL Calcium 9.6 8.8 (8.4-10.2) mg/dL Total Bilirubin 2.2 H 2.3 H (0.2-1.3) mg/dL AST 384 H 128 H (14-36) U/L ALT 356 H 230 H (4-34) U/L Alkaline Phosphatase 228 H 165 H (38-126) U/L Total Protein 7.7 6.2 L (6.3-8.2) g/dL Albumin 4.7 3.6 (3.5-5.0) g/dL
[2019-09-07] MEDS: POLYETHYLENE GLYCOL 3350 17 GM POWD.PACK PO SCH (14:17)
[2019-09-07] MEDS: HYDROcodone/APAP 5-325MG 1 EACH TAB PO PRN ×2 (15:38→19:23)
[2019-09-07] MEDS: ALPRAZolam 0.25 MG TAB PO PRN (21:46)
[2019-09-08] MEDS: SODIUM CHLORIDE 0.9% 1,000 ML IV SCH ×4 (00:19→23:32)
[2019-09-08 07:58] LABS: Basophils % (A) 0 %; Eosinophils # (A) 0.1 k/uL (0-0.7); Eosinophils % (A) 2 %; HCT 38.5 % (34.0-46.0); HGB 13.2 gm/dL (11.4-16.0); Lymphocytes # (A) 1.6 k/uL (1.0-4.8); Lymphocytes % (A) 36 %; MCHC 34.3 g/dL (31.0-37.0); MCV 90.5 fL (80.0-100.0); Mean Platelet Volume 9.6; Monocytes # (A) 0.3 k/uL (0-1.0); Monocytes % (A) 7 %; Neutrophils # (A) 2.4 k/uL (1.3-7.7); Neutrophils % (A) 53 %; Platelet Count 187 k/uL (150-450); RBC 4.26 m/uL (3.80-5.40); RDW 12.6 % (11.5-15.5); WBC 4.5 k/uL (3.8-10.6)
[2019-09-08 08:14] LABS: ALT 138 U/L (4-34); AST 41 U/L (14-36); African American GFR (CKD) >90 (>60 ml/min/1.73 sqM); Albumin 3.1 g/dL (3.5-5.0); Alkaline Phosphatase 120 U/L (38-126); Anion Gap 3 mmol/L; Blood Urea Nitrogen 3 mg/dL (7-17); Calcium 8.8 mg/dL (8.4-10.2); Carbon Dioxide 27 mmol/L (22-30); Chloride 111 mmol/L (98-107); Glucose 90 mg/dL (74-99); Non-African American GFR(CKD) >90 (>60 ml/min/1.73 sqM); Potassium 4.4 mmol/L (3.5-5.1); Sodium 141 mmol/L (137-145); Total Bilirubin 1.9 mg/dL (0.2-1.3); Total Protein 5.6 g/dL (6.3-8.2)
[2019-09-08] MEDS: POLYETHYLENE GLYCOL 3350 17 GM POWD.PACK PO SCH (08:21)
--- NOTE | 2019-09-08 08:55 | FL ---
EXAMINATION TYPE: FL UGI w esophagus DATE OF EXAM: 09/08/2019 LIMITED UGI-ESOPHAGRAM: CLINICAL HISTORY: Result fundoplication surgery for reflux and hernia 10 days ago with recurrent sev ere epigastric pain. TECHNIQUE: Limited esophagram is performed utilizing 20 oz of barium. A total of 30 seconds of fluor oscopic time was utilized during procedure. 19 spot images are saved to PACS. Comparison to CT abdomen and pelvis 4 days ago and limited upper GI study 10 days ago FINDINGS: The patient swallowed contrast without difficulty or delay. Esophageal peristalsis and mo tility are within normal limits. There is good flow of contrast along the diaphragmatic hiatus into t he stomach, there is no evidence of contrast extravasation to suggest leak. No recurrent hiatal herni a is seen. Patient has epigastric pain before during and after drinking. Cholecystectomy clips are re demonstrated. IMPRESSION: No evidence of leak or significant obstruction status post [place] fundoplication surgery recently. No significant change from prior Limited upper GI study.
[2019-09-08] MEDS: HYDROcodone/APAP 5-325MG 1 EACH TAB PO PRN ×2 (08:57→14:10)
[2019-09-08] MEDS: FAMOTIDINE 20 MG/2 ML VIAL IV SCH ×2 (08:58→20:26)
[2019-09-08] MEDS: ALPRAZolam 0.25 MG TAB PO PRN ×2 (11:28→23:32)
--- NOTE | 2019-09-08 11:36 | P.PN ---
Subjective Progress Note Date: 09/08/19 CHIEF COMPLAINT: Abdominal pain HISTORY OF PRESENT ILLNESS: Patient examined this more at the bedside. She continues to report epigastric pain. She states it hurts when she takes a deep breath. She denies shortness of breath. She is tolerating clear liquid diet. Patient reports she had a bowel movement yesterday after receiving a Dulcolax suppository. Bilirubin 1.9. AST 41. ALT 138. PHYSICAL EXAM: VITAL SIGNS: Reviewed. GENERAL: Well-developed in no acute distress. HEENT: No sclera icterus. Extraocular movements grossly intact. Moist buccal mucosa. Head is atraumatic, normocephalic. ABDOMEN: Soft. Mildly bloated. Surgical sites clean dry and intact without drainage or signs of infection. NEUROLOGIC: Alert and oriented. Cranial nerves II through XII grossly intact. ASSESSMENT: 1. History of GERD with recent laparoscopic David fundoplication 2. Transaminitis with hyperbilirubinemia PLAN: Continue [place] for pain Continue David clear liquid diet. Nothing by mouth at midnight Patient to undergo EGD tomorrow with Dr. Dilip HUTCHISON on consult. Await further recommendations and input. Monitor LFTs Nurse practitioner note has been reviewed by physician. Signing provider agrees with the documented findings, assessment, and plan of care. Objective - Vital Signs Vital signs: Vital Signs Temp 97.9 F 09/08/19 04:43 Pulse 67 09/08/19 04:43 Resp 18 09/08/19 04:43 BP 125/79 09/08/19 04:43 Pulse Ox 95 09/08/19 04:43 Intake & Output 09/07/19 09/08/19 09/08/19 18:59 06:59 18:59 Intake Total 1000 2100 Balance 1000 2100 Intake: Intake, IV Titration 1000 1500 Amount Sodium Chloride 0.9% 1, 1000 1500 000 ml @ 125 mls/hr IV . Q8H DANIEL Rx#:[id number] Oral 600 Other: Voiding Method Toilet Toilet Toilet # Voids 3 # Bowel Movements 1 1 - Labs CBC & Chem 7: 09/08/19 07:29 09/08/19 07:29 Labs: Abnormal Lab Results - Last 24 Hours (Table) 09/08/19 Range/Units 07:29 Chloride 111 H (98-107) mmol/L BUN 3 L (7-17) mg/dL Total Bilirubin 1.9 H (0.2-1.3) mg/dL AST 41 H (14-36) U/L ALT 138 H (4-34) U/L Total Protein 5.6 L (6.3-8.2) g/dL Albumin 3.1 L (3.5-5.0) g/dL
[2019-09-08 13:03] VITALS: BMI 31.2
--- NOTE | 2019-09-08 14:17 | MR ---
EXAMINATION TYPE: MR MRCP DATE OF EXAM: 09/08/2019 COMPARISON: CT abdomen and pelvis September 04, 2019 and April 10, 2017. Limited abdominal ultrasound f rom yesterday. HISTORY: r/u CBD, elevated LFTS, Bili Standard multiplanar, multisequence MRI departmental protocol Multiplanar, multisequence images of the abdomen focusing on biliary system were acquired. Thin and t hick slice MRCP imaging performed in MRI scanner. FINDINGS: Liver/gallbladder/pancreas/biliary system: Gallbladder noted surgically absent. Liver is overall norm al in size. There is no concerning solid or cystic intrahepatic mass. No intrahepatic ductal dilatati on. No significant dropout in the liver are identified. Common bile duct measures up to 11 mm at port a hepatis with gradual tapering towards the ampulla. This is not significantly changed from [address] image 33. No filling defect or stone identified. Pancreas is normal in size. Duct is not well -seen but not suspiciously dilated. MRCP images show terminating at ampulla. Other: Patchy left basilar opacity favors atelectasis and/or scarring. Spleen and both adrenal glands are normal in size. No concerning renal mass or hydronephrosis. No suspicious small or large bowel d ilatation. Visualized osseous structures are intact. No abdominal ascites. IMPRESSION: Minimal prominence of common bile duct after cholecystectomy at [facility] hepatis unchanged f rom 2017 presumed normal variant.
[2019-09-08] MEDS: HYDROcodone/APAP 7.5-325MG 1 EACH TAB PO PRN ×2 (18:29→22:33)
[2019-09-08 19:34] LABS: Hepatitis A Antibody IgM Non-Reactive (Non-Reactive); Hepatitis B Core IgM Non-Reactive (Non-Reactive); Hepatitis B Surface Antigen Non-Reactive (Non-Reactive); Hepatitis C IgG Antibody Reactive (Non-Reactive)
--- NOTE | 2019-09-08 20:13 | CONS ---
CONSULTATION DATE OF DICTATION: 09/08/2019 REASON FOR CONSULTATION: Elevated LFTs. HISTORY OF PRESENT ILLNESS: The patient is a 43-year-old pleasant white female who underwent David fundoplication [address] Cherry. She was discharged home after the surgery, but since then she has been having persistent nausea, epigastric discomfort and abdominal bloating. She had remained on a clear liquid diet. Two days ago she tried to advance her diet; she tried some oatmeal and she had worsening symptoms. She came back to the emergency room and was admitted to the hospital for further evaluation. She states that she has epigastric discomfort radiating to the left upper quadrant, to the lower abdominal area associated with nausea and dry heaves. After coming to the hospital she did have a barium swallow done that was unremarkable. She was also noted to have elevated serum transaminases, and hence we are consulted because of this issue. The patient has prior history of cholecystectomy in 2014 for symptomatic gallstones. PAST MEDICAL HISTORY: Her past medical history is significant for: 1. Anxiety. 2. IBS. 3. Gastroesophageal reflux disease. 4. Asthma. MEDICATIONS: 1. Xanax. 2. Albuterol. 3. Celexa. 4. Bentyl. 5. Omeprazole. ALLERGIES: TORADOL and TRAMADOL. SOCIAL HISTORY: Current smoker. No alcohol use. PAST SURGICAL HISTORY: 1. Cholecystectomy. 2. David fundoplication 10 days ago. 3. Hysterectomy. 4. Tubal ligation. 5. Right carpal tunnel surgery. FAMILY HISTORY: Mother unremarkable. REVIEW OF SYSTEMS: CARDIOPULMONARY: She denies any current chest pain or shortness of breath. GENITOURINARY: No dysuria or hematuria. MUSCULOSKELETAL: Unremarkable. SKIN: Unremarkable. ENDOCRINE: Unremarkable. PSYCHIATRIC: Anxiety and depression. ENT/VISION: Unremarkable. CONSTITUTIONAL: No recent weight loss. No fever, chills, night sweats. PHYSICAL EXAMINATION: Blood pressure 128/80, pulse rate 68, temperature 98. HEENT examination unremarkable. Conjunctivae pink. Sclerae anicteric. Oral cavity no lesions. NECK: No JVD or lymph node enlargement. CHEST: Clear to auscultation. HEART: Regular rate and rhythm. ABDOMEN: Soft. Bowel sounds are positive. No organomegaly. EXTREMITIES: No pedal edema. SKIN: No rashes. NEUROLOGIC: Alert and oriented x3. No focal deficits. LABS: Labs done at the time of admission to the hospital showed AST 384, ALT 356, T-bilirubin 2.2. Today T-bilirubin is down to 1.9, AST is down to 41, ALT is down to 138, alkaline phosphatase is normalized at 120. CBC with differential count is within normal limits. C difficile toxin is negative. IMPRESSION: 1. Upper abdominal pain associated with nausea, vomiting, diarrhea for the last one week's duration. Symptoms got worse 3 to 4 days following David fundoplication and about 10 days ago. C difficile toxin is negative. 2. Elevated liver function tests and jaundice and elevated bilirubin up to 2.2. Serum transaminases are gradually improving. The patient has prior history of cholecystectomy 5 years ago for symptomatic gallstones. She did have an MRCP done that showed slightly dilated CBD, but no evidence of filling defects noted. It is possible that she may have passed a CBD stone spontaneously, given the improving serum transaminases. Of course, other causes of acute hepatitis need to be excluded. RECOMMENDATIONS: 1. Continue with symptomatic and supportive care. 2. Advance diet as tolerated. 3. Obtain hepatitis serologies for A, B and C. 4. Repeat labs in the morning. We will follow with you closely during her hospital stay. Thank you for this consultation. MMODL / IJN: [id number] /
[2019-09-09] MEDS: HYDROcodone/APAP 7.5-325MG 1 EACH TAB PO PRN ×2 (06:29→15:07)
[2019-09-09] MEDS: POLYETHYLENE GLYCOL 3350 17 GM POWD.PACK PO SCH (08:16)
[2019-09-09] MEDS: FAMOTIDINE 20 MG/2 ML VIAL IV SCH ×2 (08:24→21:42)
[2019-09-09 09:40] LABS: ALT 88 U/L (4-34); AST 23 U/L (14-36); African American GFR (CKD) >90 (>60 ml/min/1.73 sqM); Albumin 3.5 g/dL (3.5-5.0); Alkaline Phosphatase 106 U/L (38-126); Anion Gap 7 mmol/L; Blood Urea Nitrogen 3 mg/dL (7-17); Calcium 8.5 mg/dL (8.4-10.2); Carbon Dioxide 24 mmol/L (22-30); Chloride 110 mmol/L (98-107); Glucose 85 mg/dL (74-99); Non-African American GFR(CKD) >90 (>60 ml/min/1.73 sqM); Potassium 3.5 mmol/L (3.5-5.1); Sodium 141 mmol/L (137-145); Total Bilirubin 2.3 mg/dL (0.2-1.3)
[2019-09-09] MEDS: ONDANSETRON 4 MG/2 ML VIAL IVP PRN (10:29)
[2019-09-09] MEDS ORDERED: LORazepam 2 MG/ML INJ IV STA (12:40)
[2019-09-09] MEDS ORDERED: PROPOFOL 10 MG/ML 20 ML VIAL IV ONE (13:40)
[2019-09-09] MEDS ORDERED: IV FLUID CONTINUATION 1,000 ML IV ONE (13:50)
--- NOTE | 2019-09-09 13:54 | P.OP ---
Date of Procedure: 09/09/19 Preoperative Diagnosis: epigastric pain Postoperative Diagnosis: mild antral gastritis Procedure(s) Performed: EGD Anesthesia: MAC Surgeon: Juan José Cherry Pathology: other (antrum) Condition: stable Disposition: PACU Description of Procedure: the patient's placed on the endoscopy table in the lateral position. She received IV sedation. The gastroscope placed oropharynx and passed in the esophagus into the stomach. Scope then placed through the pylorus. The first and second portion of the duodenum appeared normal. Scope was then brought back the antrum and this appeared mildly inflamed. A biopsies performed. Scope was then retroflexed and remainder stomach appeared normal. The sleeve exam. There is no evidence of any hiatal hernia. The GE junction was at 40 cm. The distal esophagus appeared normal. The proximal esophagus normal. Scope was brought patient.
--- NOTE | 2019-09-09 14:57 | P.CONS ---
History of Present Illness - Reason for Consult Consult date: 09/09/19 - Chief Complaint nausea, epigastric pain - History of Present Illness 43 years old female patient of Dr. Sanchez with past medical history of anxiety, IBS, GERD, asthma comes in with nausea and epigastric discomfort abdominal bloating. Patient had David fundoplication on 08/[address] Vicenet and was discharged home after surgery. Patient continued to have nausea epigastric discomfort since discharge. She remained on the clear liquid diet was unable to advance the diet. Pain is radiating to the left upper quadrant and to the lower abdominal area associated with nausea. She does drink alcohol on a daily basis around sixpack including liquor. patient also endorses diarrhea multiple episodes a day for the past 2 months and had change in her diet as well as medication to evaluate the etiology.she did get constipated 4 days ago and got better after having a bowel movement yesterday. Denies any history of alcohol withdrawal. Patient was anxious about her results on the hepatitis panel but was told it was only hepatitis C IgG. Patient also documents history of cholecystectomy many years ago. patient underwent barium swallow which was unremarkable. She also underwent MRCP which was negative for any acute abnormality slight dilation of common bile duct seen which was found to be a normal gradient.On evaluation of patient's blood work, patient is found to have elevated transaminitiswith a total bilirubin of 2.3 AST 384 on admission and improved to 23 AST 356 on admission and improved to 88 alkaline phosphatase 228 on admission and improved to 106. Patient is undergoing EGD today for evaluation of epigastric pain. Lipase was normal on admission. Hepatitis C IgG antibody was positive. Review of Systems Constitutional: Denies chills, Denies fever, Denies lethargy, Denies malaise, Denies poor appetite, Denies weakness, Denies weight loss Eyes: denies decreased vision, denies diplopia, denies discharge, denies pain Ears: deny: decreased hearing Ears, nose, mouth and throat: Denies dental pain, Denies headache, Denies nasal discharge, Denies nose pain Cardiovascular: Denies chest pain, Denies decreased exercise tolerance, Denies edema, Denies high blood pressure, Denies irregular heart beat, Denies palpitations, Denies paroxysmal nocturnal dyspnea, Denies rapid heart beat, Denies shortness of breath Respiratory: Denies congestion, Denies cough, Denies cough with sputum, Denies dyspnea, Denies home oxygen, Denies wheezing Gastrointestinal: endorses abdominal pain, endorses change in bowel habits, Denies coffee ground emesis, Denies early satiety, Denies excessive gas, Denies heartburn, Denies hematemesis, Denies hematochezia, Denies loss of appetite, endorses nausea, Denies vomiting Genitourinary: Denies dysuria, Denies flank pain, Denies kidney stones, Denies menorrhagia, Denies urgency, Denies urinary frequency Musculoskeletal: Denies gait dysfunction, Denies limitation of motion, Denies morning stiffness, Denies muscle cramps Integumentary: Denies rash, Denies wounds, Denies brittle nails, Denies change in hair/nails, Denies darkening of skin Neurological: Denies balance difficulties, Denies change in speech, Denies double vision, Denies gait dysfunction, Denies loss of vision, Denies motor disturbance, Denies numbness, Denies paralysis, Denies paresthesias, Denies seizures Psychiatric: endorses anxiety, Denies depression Endocrine: Denies excessive sweating, Denies excessive thirst, Denies high blood sugars, Denies palpitations Hematologic/Lymphatic: Denies easy bruising, Denies lymphadenopathy Past Medical History Past Medical History: Asthma, Cancer, COPD, Pneumonia Additional Past Medical History / Comment(s): hx of stomach ulcers, hx of H. Pylori, current frequent diarrhea, blood in stool, vomiting, uterine cancer, left and right carpal tunnel, restless leg syndrome History of Any Multi-Drug Resistant Organisms: None Reported Past Surgical History: Cholecystectomy, Hernia Repair, Hysterectomy, Orthopedic Surgery, Tubal Ligation Additional Past Surgical History / Comment(s): rt carpal tunnel Past Anesthesia/Blood Transfusion Reactions: No Reported Reaction Past Psychological History: Anxiety, Depression Smoking Status: Current some day smoker Past Alcohol Use History: Occasional Additional Past Alcohol Use History / Comment(s): patient states she has had 3 cigarettes since the beginning of the month. Past Drug Use History: None Reported - Past Family History Mother Family Medical History: No Reported History Medications and Allergies Home Medications Medication Instructions Recorded Confirmed Type ALPRAZolam [Xanax] 0.25 mg PO BID PRN 08/06/19 09/07/19 History Citalopram Hydrobromide [CeleXA] 10 mg PO QAM 08/06/19 09/07/19 History Dicyclomine [Bentyl] 20 mg PO QID 08/06/19 09/07/19 History Omeprazole 20 mg PO QAM 08/06/19 09/07/19 History HYDROcodone/APAP 7.5-325MG [[employer] 1 tab PO Q6HR PRN 3 Days #12 tab 09/04/19 09/07/19 Rx 7.5-325] Docusate [Colace] 100 mg PO DAILY 09/07/19 09/07/19 History Allergies Allergy/AdvReac Type Severity Reaction Status Date / Time ketorolac tromethamine Allergy Rash/Hives Verified 09/07/19 09:41 [From Toradol] tramadol Allergy Rash/Hives Verified 09/07/19 09:41 Physical Exam Vitals: Vital Signs Temp Pulse Pulse Resp BP Pulse Ox 09/09/19 11:22 97.7 F 56 L 16 139/83 96 09/09/19 05:00 97.9 F 62 16 110/68 94 L 09/08/19 21:00 97.7 F 77 18 117/78 95 Intake and Output 09/08/19 09/09/19 09/09/19 22:59 06:59 14:59 Intake Total 1100 1000 1200 Balance 1100 1000 1200 Intake: IV 200 Intake, IV Titration 500 1000 1000 Amount Sodium Chloride 0.9% 1, 500 1000 1000 000 ml @ 125 mls/hr IV . Q8H [facility] Rx#:[id number] Oral 600 Other: Voiding Method Toilet Toilet # Voids 3 3 - Constitutional General appearance: cooperative, no acute distress, appears age-appropriate - EENT Eyes: anicteric sclerae, PERRLA, normal appearance ENT: hearing grossly normal - Neck Neck: no lymphadenopathy, normal ROM, no other, no rigidity, no stridor, no thyromegaly - Respiratory Respiratory: bilateral: CTA, negative: diminished, dullness, rales, rhonchi - Cardiovascular Rhythm: regular Heart sounds: normal: S1, S2 Abnormal Heart Sounds: no systolic murmur, no diastolic murmur, no rub, no S3 Gallop, no S4 Gallop, no click, no other - Gastrointestinal General gastrointestinal: normal bowel sounds, soft, tender in the epigastric region - Integumentary Integumentary: no rash - Neurologic Neurologic: CNII-XII intact - Musculoskeletal Musculoskeletal: gait not assessed, strength equal bilaterally - Psychiatric Psychiatric: A&O x's 3, appropriate affect Results CBC & Chem 7: 09/08/19 07:29 09/09/19 08:49 Labs: Abnormal Lab Results - Last 24 Hours (Table) 09/08/19 09/09/19 Range/Units 07:28 08:49 Chloride 110 H (98-107) mmol/L BUN 3 L (7-17) mg/dL Total Bilirubin 2.3 H (0.2-1.3) mg/dL ALT 88 H (4-34) U/L Total Protein 6.0 L (6.3-8.2) g/dL Hep C IgG Ab Reactive H (Non-Reactive) Assessment and Plan Plan: #1 acute epigastric pain with nausea and diarrhea. Diarrhea for the past 2 months associated with epigastric pain that just started surgery. C. diff was negative. EGD planned for today. #2 elevated liver enzymes or jaundice. Bilirubin elevated at 2.0 serum transcend denies improving currently on CBD dilation noted MRCP which could have been a result of the past CBD stone. Patient has history of cholecystectomy 5 years ago for symptomatic gallstones. Hepatitis panel ordered positive for hepatitis B IgG. Hepatitis RNA and genotype ordered #3 hepatitis C IgG positive. Hepatitis C RNA and genotype ordered #4 asthma under control. DuoNeb as needed for shortness of breath #5 GERD status for David fundoplication on 08/28 continue Protonix 40 mg by mouth every afternoon #6 history of anxiety continue Xanax 0.25 twice a day and Celexa 10 mg every morning #7 CODE STATUS full code #8 history of alcohol abuse with history of fatty liver disease in the past. watch for alcohol withdrawal Thank you for the consult. I'll be happy to assist in patient's medical need wh ile patient is in the hospital
[2019-09-09] MEDS: DICYCLOMINE 20 MG TAB PO SCH ×3 (15:04→21:43)
[2019-09-09] MEDS: SODIUM CHLORIDE 0.9% 1,000 ML IV SCH (17:48)
[2019-09-09] MEDS: ALPRAZolam 0.25 MG TAB PO PRN (18:09)
[2019-09-10] MEDS: SODIUM CHLORIDE 0.9% 1,000 ML IV SCH ×4 (02:30→10:22)
[2019-09-10] MEDS: HYDROcodone/APAP 7.5-325MG 1 EACH TAB PO PRN ×3 (02:31→23:45)
[2019-09-10] MEDS: DOCUSATE 100 MG CAP PO SCH (08:01)
[2019-09-10] MEDS: ALPRAZolam 0.25 MG TAB PO PRN (08:01)
[2019-09-10] MEDS: FAMOTIDINE 20 MG/2 ML VIAL IV SCH ×2 (08:04→20:46)
[2019-09-10] MEDS: PANTOPRAZOLE 40 MG TABLET PO SCH (08:09)
[2019-09-10] MEDS: CITALOPRAM HYDROBROMIDE 10 MG TAB PO SCH (08:09)
[2019-09-10] MEDS: DICYCLOMINE 20 MG TAB PO SCH ×4 (08:09→22:00)
[2019-09-10] MEDS: POLYETHYLENE GLYCOL 3350 17 GM POWD.PACK PO SCH (08:11)
--- NOTE | 2019-09-10 13:38 | P.PN ---
Subjective Progress Note Date: 09/09/19 Principal diagnosis: abdominal pain, elevated liver enzymes Patient is seen lying in bed reporting that her abdominal pain is improved but still present. No further nausea or vomiting. She is tolerated diet. Objective - Vital Signs Vital signs: Vital Signs Temp 97.7 F 09/09/19 11:22 Pulse 56 L 09/09/19 11:22 Resp 16 09/09/19 11:22 BP 139/83 09/09/19 11:22 Pulse Ox 96 09/09/19 11:22 Intake & Output 09/08/19 09/09/19 09/09/19 18:59 06:59 18:59 Intake Total 1000 2100 Balance 1000 2100 Weight 72.575 kg Intake: Intake, IV Titration 1000 1500 Amount Sodium Chloride 0.9% 1, 1000 1500 000 ml @ 125 mls/hr IV . Q8H [facility] Rx#:[id number] Oral 600 Other: Voiding Method Toilet Toilet Toilet # Voids 3 - Exam On physical examination, patient appears comfortable in no apparent distress. HEAD: Normocephalic, atraumatic. EYES: No scleral icterus. No conjunctival injection. MOUTH: No lesions, tongue midline. NECK: Trachea midline, no gross abnormalities. ABDOMEN: Soft, mildly tender to palpation. Bowel sounds are positive. No organomegaly. No guarding or rigidity. EXTREMITIES: No pedal edema. SKIN: No rashes, no jaundice. NEUROLOGIC: Alert and oriented x3. No focal deficits. - Labs CBC & Chem 7: 09/08/19 07:29 09/09/19 08:49 Labs: Abnormal Lab Results - Last 24 Hours (Table) 09/08/19 09/09/19 Range/Units 07:28 08:49 Chloride 110 H (98-107) mmol/L BUN 3 L (7-17) mg/dL Total Bilirubin 2.3 H (0.2-1.3) mg/dL ALT 88 H (4-34) U/L Total Protein 6.0 L (6.3-8.2) g/dL Hep C IgG Ab Reactive H (Non-Reactive) Assessment and Plan (1) Abdominal pain Narrative/Plan: 43-year-old presented with complaints of abdominal pain in the epigastric region, nausea, vomiting and diarrhea approximately one week's duration. She is status post David fundoplication approximately 10 days ago. Testing for Clostridium difficile was negative. Unknown etiology, a represent viral or bacterial gastroenteritis, with plans for EGD with the surgical service for further evaluation. Current Visit: Yes Status: Acute Code(s): R10.9 - UNSPECIFIED ABDOMINAL PAIN SNOMED Code(s): 55697136 (2) Transaminitis Narrative/Plan: 43-year-old who test positive for hepatitis C antibodies. Liver enzymes were found to be elevated. Further evaluation of C status in process. Current Visit: Yes Status: Acute Code(s): R74.0 - NONSPEC ELEV OF LEVELS OF TRANSAMNS & LACTIC ACID DEHYDRGNSE SNOMED Code(s): 378411392 (3) Nausea and vomiting Current Visit: No Status: Acute Code(s): R11.2 - NAUSEA WITH VOMITING, UNSPECIFIED SNOMED Code(s): 24394253 Plan: supportive care Okay for diet per surgical service Surgical service plan EGD for further evaluation Continue supportive care Hepatitis C genotype and viral load ordered Continue antiemetics as needed Thank you for allowing us to participate in the care of the patient we will continue to follow
--- NOTE | 2019-09-10 14:29 | P.PN ---
Subjective Progress Note Date: 09/10/19 CHIEF COMPLAINT: Abdominal pain HISTORY OF PRESENT ILLNESS: patient is status post EGD with Dr. Cherry revealing mild antral gastritis. Patient continues to complain of severe epigastric pain. However, she is tolerating liquid diet. bilirubin increased slightly today at 2.3. AST 23. ALT 88. PHYSICAL EXAM: VITAL SIGNS: Reviewed. GENERAL: Well-developed in no acute distress. HEENT: No sclera icterus. Extraocular movements grossly intact. Moist buccal mucosa. Head is atraumatic, normocephalic. ABDOMEN: Soft. nondistended. Surgical sites clean dry and intact without drainage or signs of infection. NEUROLOGIC: Alert and oriented. Cranial nerves II through XII grossly intact. ASSESSMENT: 1. History of GERD with recent laparoscopic David fundoplication 2. Transaminitis with hyperbilirubinemia PLAN: Continue Lewis for pain Continue David full liquid diet. GI on consult. Appreciate recommendations. Await further input regarding hepatitis screen Patient states she is not ready to be discharged home today. Will reevaluate patient again tomorrow. Nurse practitioner note has been reviewed by physician. Signing provider agrees with the documented findings, assessment, and plan of care. Objective - Vital Signs Vital signs: Vital Signs Temp 98 F 09/10/19 11:35 Pulse 60 09/10/19 11:35 Resp 16 09/10/19 11:35 BP 130/83 09/10/19 11:35 Pulse Ox 95 09/10/19 11:35 Intake & Output 09/09/19 09/10/19 09/10/19 18:59 06:59 18:59 Intake Total 1200 1375 Balance 1200 1375 Weight 72.575 kg Intake: IV 200 Intake, IV Titration 1000 1375 Amount Sodium Chloride 0.9% 1, 1000 1375 000 ml @ 125 mls/hr IV . Q8H [facility] Rx#:[id number] Other: Voiding Method Toilet Toilet # Voids 4 - Labs CBC & Chem 7: 09/08/19 07:29 09/09/19 08:49 Labs: Abnormal Lab Results - Last 24 Hours (Table) 09/10/19 Range/Units 07:36 Lipase 19 L (23-300) U/L
[2019-09-10] MEDS: LORazepam 0.5 MG TAB PO SCH ×2 (14:52→20:46)
[2019-09-10 15:38] LABS: HCV Qualitative Result Not detected (Not detected); HCV Quant Log <1.08 (<1.08); HCV Quantitative Result <12 IU/mL (<12)
--- NOTE | 2019-09-10 17:18 | P.PN ---
Subjective Progress Note Date: 09/10/19 43 years old female patient of Dr. Sanchez with past medical history of anxiety, IBS, GERD, asthma comes in with nausea and epigastric discomfort abdominal bloating. Patient had David fundoplication on 08/[address] Vicente and was discharged home after surgery. Patient continued to have nausea ep igastric discomfort since discharge. She remained on the clear liquid diet was unable to advance the diet. Pain is radiating to the left upper quadrant and to the lower abdominal area associated with nausea. She does drink alcohol on a daily basis around sixpack including liquor. patient also endorses diarrhea multiple episodes a day for the past 2 months and had change in her diet as well as medication to evaluate the etiology.she did get constipated 4 days ago and got better after having a bowel movement yesterday. Denies any history of alcohol withdrawal. Patient was anxious about her results on the hepatitis panel but was told it was only hepatitis C IgG. Patient also documents history of cholecystectomy many years ago. patient underwent barium swallow which was unremarkable. She also underwent MRCP which was negative for any acute abnormality slight dilation of common bile duct seen which was found to be a normal gradient.On evaluation of patient's blood work, patient is found to have elevated transaminitiswith a total bilirubin of 2.3 AST 384 on admission and improved to 23 AST 356 on admission and improved to 88 alkaline phosphatase 228 on admission and improved to 106. Patient is undergoing EGD today for evaluation of epigastric pain. Lipase was normal on admission. Hepatitis C IgG antibody was positive. 09/10 patient examined bedside still complaining of epigastric tenderness EEG performed yesterday suggestive antral gastritis.Daryl currently on pantoprazole 40 mg every morning. Patient does suggest that her anxiety is really bad and is unable to cope up with the medical new is she is getting every day. Since that event in proved her symptom was switched 0.5 mg 3 times a day. Patient was advised to see a psychiatrist as outpatient.total bilirubin increased to 0.3 from 1.9. repeat CMP today. Hepatitis C RNA was negative. ROS Constitutional: Denies chills, Denies fever, Denies lethargy, Denies malaise, Denies poor appetite, Denies weakness, Denies weight loss Eyes: denies decreased vision, denies diplopia, denies discharge, denies pain Ears: deny: decreased hearing Ears, nose, mouth and throat: Denies dental pain, Denies headache, Denies nasal discharge, Denies nose pain Cardiovascular: Denies chest pain, Denies decreased exercise tolerance, Denies edema, Denies high blood pressure, Denies irregular heart beat, Denies palpitations, Denies paroxysmal nocturnal dyspnea, Denies rapid heart beat, Denies shortness of breath Respiratory: Denies congestion, Denies cough, Denies cough with sputum, Denies dyspnea, Denies home oxygen, Denies wheezing Gastrointestinal: endorses abdominal pain, Denies change in bowel habits, Denies coffee ground emesis, Denies early satiety, Denies excessive gas, Denies heartburn, Denies hematemesis, Denies hematochezia, Denies loss of appetite, Denies nausea, Denies vomiting Genitourinary: Denies dysuria, Denies flank pain, Denies kidney stones, Denies menorrhagia, Denies urgency, Denies urinary frequency Musculoskeletal: Denies gait dysfunction, Denies limitation of motion, Denies morning stiffness, Denies muscle cramps Integumentary: Denies rash, Denies wounds, Denies brittle nails, Denies change in hair/nails, Denies darkening of skin Neurological: Denies balance difficulties, Denies change in speech, Denies double vision, Denies gait dysfunction, Denies loss of vision, Denies motor disturbance, Denies numbness, Denies paralysis, Denies paresthesias, Denies sei zures Psychiatric: endorses anxiety, Denies depression Endocrine: Denies excessive sweating, Denies excessive thirst, Denies high blood sugars, Denies palpitations Hematologic/Lymphatic: Denies easy bruising, Denies lymphadenopathy Objective - Vital Signs Vital signs: Vital Signs Temp 98 F 09/10/19 11:35 Pulse 60 09/10/19 11:35 Resp 16 09/10/19 11:35 BP 130/83 09/10/19 11:35 Pulse Ox 95 09/10/19 11:35 Intake & Output 09/09/19 09/10/19 09/10/19 18:59 06:59 18:59 Intake Total 1200 1375 Balance 1200 1375 Weight 72.575 kg Intake: IV 200 Intake, IV Titration 1000 1375 Amount Sodium Chloride 0.9% 1, 1000 1375 000 ml @ 125 mls/hr IV . Q8H [facility] Rx#:[id number] Other: Voiding Method Toilet Toilet # Voids 4 - Exam - Constitutional General appearance: cooperative, no acute distress, obese - EENT Eyes: anicteric sclerae, PERRLA, normal appearance ENT: hearing grossly normal - Neck Neck: no lymphadenopathy, normal ROM, no other, no rigidity, no stridor, no thyromegaly - Respiratory Respiratory: bilateral: CTA, negative: diminished, dullness, rales, rhonchi - Cardiovascular Rhythm: regular Heart sounds: normal: S1, S2 Abnormal Heart Sounds: no systolic murmur, no diastolic murmur, no rub, no S3 Gallop, no S4 Gallop, no click, no other - Gastrointestinal General gastrointestinal: normal bowel sounds, soft, tender epigastric - Integumentary Integumentary: no rash - Neurologic Neurologic: CNII-XII intact - Musculoskeletal Musculoskeletal: gait normal, strength equal bilaterally - Psychiatric Psychiatric: A&O x's 3, appropriate affect - Labs CBC & Chem 7: 09/08/19 07:29 09/09/19 08:49 Labs: Abnormal Lab Results - Last 24 Hours (Table) 09/10/19 Range/Units 07:36 Lipase 19 L (23-300) U/L Assessment and Plan Plan: #1 acute epigastric pain with nausea and diarrhea. Diarrhea for the past 2 months associated with epigastric pain that just started surgery. C. diff was negative. EGD history fo rantral gastritis #2 elevated liver enzymes or jaundice. Bilirubin elevated at 2.0 CBD dilation noted MRCP which could have been a result of the past CBD stone. Patient has history of cholecystectomy 5 years ago for symptomatic gallstones. Hepatitis panel ordered positive for hepatitis c IgG. Hepatitis RNAwas negative #3 hepatitis C IgG positive. Hepatitis C RNA less than 12 #4 asthma under control. DuoNeb as needed for shortness of breath #5 GERD status for David fundoplication on 08/28 continue Protonix 40 mg by mouth every afternoon #6 history of anxiety Xanax switched to Ativan and Celexa 10 mg every morning #7 CODE STATUS full code #8 history of alcohol abuse with history of fatty liver disease in the past. watch for alcohol withdrawal
--- NOTE | 2019-09-11 01:52 | P.PN ---
Subjective Progress Note Date: 09/10/19 Principal diagnosis: abdominal pain, elevated liver enzymes Patient is seen lying in bed reporting that her abdominal pain is improved but still present. Patient is tolerating her diet. No nausea or vomiting. Objective - Vital Signs Vital signs: Vital Signs Temp 98 F 09/10/19 11:35 Pulse 60 09/10/19 11:35 Resp 16 09/10/19 11:35 BP 130/83 09/10/19 11:35 Pulse Ox 95 09/10/19 11:35 Intake & Output 09/09/19 09/10/19 09/10/19 18:59 06:59 18:59 Intake Total 1200 1375 Balance 1200 1375 Weight 72.575 kg Intake: IV 200 Intake, IV Titration 1000 1375 Amount Sodium Chloride 0.9% 1, 1000 1375 000 ml @ 125 mls/hr IV . Q8H [facility] Rx#:[id number] Other: Voiding Method Toilet Toilet # Voids 4 - Exam On physical examination, patient appears comfortable in no apparent distress. HEAD: Normocephalic, atraumatic. EYES: No scleral icterus. No conjunctival injection. MOUTH: No lesions, tongue midline. NECK: Trachea midline, no gross abnormalities. ABDOMEN: Soft, mildly tender to palpation. Bowel sounds are positive. No organomegaly. No guarding or rigidity. EXTREMITIES: No pedal edema. SKIN: No rashes, no jaundice. NEUROLOGIC: Alert and oriented x3. No focal deficits. - Labs CBC & Chem 7: 09/08/19 07:29 09/09/19 08:49 Labs: Abnormal Lab Results - Last 24 Hours (Table) 09/10/19 Range/Units 07:36 Lipase 19 L (23-300) U/L Assessment and Plan (1) Abdominal pain Narrative/Plan: 43-year-old presented with complaints of abdominal pain in the epigastric region, nausea, vomiting and diarrhea approximately one week's duration. She is status post David fundoplication approximately 10 days ago. Testing for Clostridium difficile was negative. Unknown etiology, a represent viral or bacterial gastroenteritis, with plans for EGD with the surgical service for further evaluation. Current Visit: Yes Status: Acute Code(s): R10.9 - UNSPECIFIED ABDOMINAL PAIN SNOMED Code(s): 10635387 (2) Transaminitis Narrative/Plan: 43-year-old who test positive for hepatitis C antibodies. Liver enzymes were found to be elevated. Further evaluation of C with undetectable hepatitis C viral load and genotype, may represent a cleared infection or a false positive. Current Visit: Yes Status: Acute Code(s): R74.0 - NONSPEC ELEV OF LEVELS OF TRANSAMNS & LACTIC ACID DEHYDRGNSE SNOMED Code(s): 828313691 (3) Nausea and vomiting Current Visit: No Status: Acute Code(s): R11.2 - NAUSEA WITH VOMITING, UNSPECIFIED SNOMED Code(s): 59000730 Plan: supportive care Okay for diet per surgical service Continue supportive care Hepatitis C antibody positive, but genotype and viral load undetectable, may represent a false positive or he cleared infection, would recommend repeat testing in 3-6 months, otherwise further treatment is not advised Continue antiemetics as needed Okay for discharge from gastroenterology standpoint Thank you for allowing us to participate in the care of the patient, the GI service will stand by, please call us back with any questions or concerns
[2019-09-11] MEDS: SODIUM CHLORIDE 0.9% 1,000 ML IV SCH ×2 (03:36→11:23)
[2019-09-11] MEDS: DOCUSATE 100 MG CAP PO SCH (07:29)
[2019-09-11] MEDS: HYDROcodone/APAP 7.5-325MG 1 EACH TAB PO PRN ×2 (07:30→11:22)
[2019-09-11] MEDS: PANTOPRAZOLE 40 MG TABLET PO SCH (07:30)
[2019-09-11] MEDS: LORazepam 0.5 MG TAB PO SCH (07:32)
[2019-09-11] MEDS: FAMOTIDINE 20 MG/2 ML VIAL IV SCH (07:32)
[2019-09-11] MEDS: CITALOPRAM HYDROBROMIDE 10 MG TAB PO SCH (07:41)
[2019-09-11] MEDS: DICYCLOMINE 20 MG TAB PO SCH ×2 (07:41→13:51)
[2019-09-11] MEDS: POLYETHYLENE GLYCOL 3350 17 GM POWD.PACK PO SCH (07:42)
[2019-09-11 10:09] LABS: ALT 49 U/L (4-34); AST 20 U/L (14-36); African American GFR (CKD) >90 (>60 ml/min/1.73 sqM); Albumin 3.6 g/dL (3.5-5.0); Alkaline Phosphatase 88 U/L (38-126); Anion Gap 8 mmol/L; Blood Urea Nitrogen 3 mg/dL (7-17); Calcium 9.1 mg/dL (8.4-10.2); Carbon Dioxide 26 mmol/L (22-30); Chloride 110 mmol/L (98-107); Glucose 78 mg/dL (74-99); Non-African American GFR(CKD) >90 (>60 ml/min/1.73 sqM); Potassium 3.6 mmol/L (3.5-5.1); Sodium 144 mmol/L (137-145); Total Bilirubin 1.8 mg/dL (0.2-1.3); Total Protein 6.2 g/dL (6.3-8.2)
[2019-09-11 11:58] VITALS: BP 154/80; PULSE 65; RESP 17; TEMP 97.2
--- NOTE | 2019-09-11 13:20 | P.DS ---
Providers Date of admission: 09/09/19 09:16 Expected date of discharge: 09/11/19 Attending physician: Juan José Cherry Primary care physician: Arslan Grady Hospital Course: this a 43-year-old female who is admitted to hospital for complaints of epigastric pain and nausea. Patient was evaluated by the GI service. Marni underwent EGD. Please see hospital chart for details. Patient Condition at Discharge: Good Plan - Discharge Summary Discharge Rx Participant: No New Discharge Prescriptions: Continue ALPRAZolam [Xanax] 0.25 mg PO BID PRN PRN Reason: Anxiety Citalopram Hydrobromide [CeleXA] 10 mg PO QAM Omeprazole 20 mg PO QAM Dicyclomine [Bentyl] 20 mg PO QID HYDROcodone/APAP 7.5-325MG [[place] 7.5-325] 1 tab PO Q6HR PRN 3 Days #12 tab PRN Reason: Pain Docusate [Colace] 100 mg PO DAILY Discharge Medication List ALPRAZolam [Xanax] 0.25 mg PO BID PRN 08/06/19 [History] Citalopram Hydrobromide [CeleXA] 10 mg PO QAM 08/06/19 [History] Dicyclomine [Bentyl] 20 mg PO QID 08/06/19 [History] Omeprazole 20 mg PO QAM 08/06/19 [History] HYDROcodone/APAP 7.5-325MG [[place] 7.5-325] 1 tab PO Q6HR PRN 3 Days #12 tab 09/04/19 [Rx] Docusate [Colace] 100 mg PO DAILY 09/07/19 [History] Follow up Appointment(s)/Referral(s): Arslan Grady MD [Primary Care Provider] - 1-2 days Juan José Cherry MD [STAFF PHYSICIAN] - 1 Week Darell Enriquez MD [STAFF PHYSICIAN] - 1 Week Patient Instructions/Handouts: Abdominal Pain (ED) Discharge Disposition: HOME SELF-CARE
== END 2019-09-11 15:26 | disposition home or self-care (01) | DRG 392 ==
LOC: EC 21:58 → 5NMEDONC 09-07 00:07 → OBSVTOIN 09-09 09:16
PROVIDERS: ADMIT Surgery; ATTEND Surgery
PROC: 0DB78ZX Excision of Stomach, Pylorus, Via Natural or Artificial Opening Endoscopic, Diagnostic (ICD-10-PCS; principal; 2019-09-09 13:30)
DX: K29.70 Gastritis, unspecified, without bleeding (principal); K83.8 Other specified diseases of biliary tract; F17.200 Nicotine dependence, unspecified, uncomplicated; F32.9 Major depressive disorder, single episode, unspecified; F41.9 Anxiety disorder, unspecified; G25.81 Restless legs syndrome; J44.9 Chronic obstructive pulmonary disease, unspecified; K58.0 Irritable bowel syndrome with diarrhea; K21.9 Gastro-esophageal reflux disease without esophagitis; R74.8 Abnormal levels of other serum enzymes; R79.89 Other specified abnormal findings of blood chemistry; K59.00 Constipation, unspecified; F10.10 Alcohol abuse, uncomplicated; Z79.899 Other long term (current) drug therapy; Z88.5 Allergy status to narcotic agent; Z87.01 Personal history of pneumonia (recurrent); Z87.11 Personal history of peptic ulcer disease; Z90.49 Acquired absence of other specified parts of digestive tract; Z90.710 Acquired absence of both cervix and uterus; Z86.19 Personal history of other infectious and parasitic diseases; Z85.42 Personal history of malignant neoplasm of other parts of uterus; Z30.2 Encounter for sterilization
CPT/HCPCS: 36415; 43239; 74181; 74240; 76705; 80053; 80074; 81003; 82150; 83690; 85025; 87324; 87522; 88305; 93005; 96361; 96374; 96375; 99285

== ENCOUNTER 2019-09-28 20:40 | Emergency (ER) | payer OTHER ==
[2019-09-28 20:45] VITALS: TEMP 98.4
[2019-09-28] MEDS ORDERED: DICYCLOMINE 10 MG/ML 2 ML AMP IM STA (20:51)
[2019-09-28] MEDS ORDERED: ONDANSETRON 4 MG/2 ML VIAL IVP STA (20:51)
[2019-09-28] MEDS ORDERED: MORPHINE SULFATE 2 MG/ML SYRINGE IVP STA (20:51)
[2019-09-28] MEDS ORDERED: SODIUM CHLORIDE 0.9% 1,000 ML IV STA (20:51)
--- NOTE | 2019-09-28 20:58 | ED ---
Abdominal Pain HPI - General Chief Complaint: Abdominal Pain Stated Complaint: Abd pain, nausea Time Seen by Provider: 09/28/19 20:45 Source: patient Mode of arrival: ambulatory Limitations: no limitations - History of Present Illness Initial Comments: 44-year-old female patient presents to the emergency department today for evaluation of upper abdominal pain and diarrhea. Patient is she's had symptoms started around 0500 this morning. The patient states that she had a David Fundoplication performed at the beginning of August. States that since then she's been having issues intermittently with nausea, abdominal pain, and diarrhea. States that she has been good for approximately 2 weeks and then started having symptoms again today. She is reporting pain to the upper abdomen. States she's had multiple episodes of diarrhea. States she is having blood with wiping but she does have a hemorrhoid. She has been nauseated but does not vomit after the procedure. Denies fever or chills. She has also had cholecystectomy and tubal ligation in the past. Patient denies any recent rash, shortness breath, chest pain, back pain, numbness, tingling, dizziness, weakness, hematuria, dysuria, urinary urgency, urinary frequency, headache, visual changes, or any other complaints. - Related Data Home Medications Medication Instructions Recorded Confirmed ALPRAZolam [Xanax] 0.25 mg PO BID PRN 08/06/19 09/07/19 Citalopram Hydrobromide [CeleXA] 10 mg PO QAM 08/06/19 09/07/19 Dicyclomine [Bentyl] 20 mg PO QID 08/06/19 09/07/19 Omeprazole 20 mg PO QAM 08/06/19 09/07/19 Docusate [Colace] 100 mg PO DAILY 09/07/19 09/07/19 Previous Rx's Medication Instructions Recorded HYDROcodone/APAP 7.5-325MG [[place] 1 tab PO Q6HR PRN 3 Days #12 tab 09/04/19 7.5-325] Ondansetron [Zofran ODT] 4 mg PO Q8HR PRN #10 tab 09/28/19 Allergies Allergy/AdvReac Type Severity Reaction Status Date / Time ketorolac tromethamine Allergy Rash/Hives Verified 09/28/19 20:43 [From Toradol] tramadol Allergy Rash/Hives Verified 09/28/19 20:43 Review of Systems ROS Statement: Those systems with pertinent positive or pertinent negative responses have been documented in the HPI. ROS Other: All systems not noted in ROS Statement are negative. Past Medical History Past Medical History: Asthma, Cancer, COPD, Pneumonia Additional Past Medical History / Comment(s): hx of stomach ulcers, hx of H. Pylori, current frequent diarrhea, blood in stool, vomiting, uterine cancer, left and right carpal tunnel, restless leg syndrome History of Any Multi-Drug Resistant Organisms: None Reported Past Surgical History: Cholecystectomy, Hernia Repair, Hysterectomy, Orthopedic Surgery, Tubal Ligation Additional Past Surgical History / Comment(s): rt carpal tunnel Past Anesthesia/Blood Transfusion Reactions: No Reported Reaction Past Psychological History: Anxiety, Depression Smoking Status: Former smoker Past Alcohol Use History: Occasional Past Drug Use History: None Reported - Past Family History Mother Family Medical History: No Reported History General Exam Limitations: no limitations General appearance: alert, in no apparent distress, other (Physical well- developed, well-nourished, nontoxic-appearing adult female patient in no acute distress. Vital signs upon presentation are temperature 98.4 degrees; pulse 109, respirations 20, blood pressure 158/99, pulse ox 96% on room air) Eye exam: Present: normal appearance, PERRL, EOMI. Absent: scleral icterus, co njunctival injection, periorbital swelling ENT exam: Present: normal exam, normal oropharynx, mucous membranes moist Respiratory exam: Present: normal lung sounds bilaterally. Absent: respiratory distress, wheezes, rales, rhonchi, stridor Cardiovascular Exam: Present: regular rate, normal rhythm, normal heart sounds. Absent: systolic murmur, diastolic murmur, rubs, gallop, clicks GI/Abdominal exam: Present: soft, tenderness (Midepigastric tenderness), normal bowel sounds. Absent: distended, guarding, rebound, rigid Neurological exam: Present: alert, oriented X3, CN II-XII intact Psychiatric exam: Present: normal affect, normal mood Skin exam: Present: warm, dry, intact, normal color. Absent: rash Course Vital Signs 09/28/19 09/28/19 20:41 23:15 Temperature 98.4 F Pulse Rate 109 H 66 Respiratory 20 16 Rate Blood Pressure 158/99 148/87 O2 Sat by Pulse 96 96 Oximetry Medical Decision Making - Medical Decision Making 44-year-old female patient presents to the emergency department today for evaluation of upper abdominal pain and nausea. Physical examination reveals some mild upper abdominal tenderness. Labs reviewed and are unremarkable. X- ray was negative. Case was discussed with the patient's surgeon Dr. Cherry who recommends discharge home. She is instructed to call in the morning for a sooner appointment. Return parameters were discussed in detail patient verbalizes understanding and agrees with this plan. - Lab Data Result diagrams: 09/28/19 21:06 09/28/19 21:06 Lab Results 09/28/19 09/28/19 09/28/19 Range/Units 21:06 21: 21:06 WBC 9.8 (3.8-10.6) k/uL RBC 5.16 (3.80-5.40) m/uL Hgb 15.3 (11.4-16.0) gm/dL Hct 45.6 (34.0-46.0) % MCV 88.4 (80.0-100.0) fL MCH 29.7 (25.0-35.0) pg MCHC 33.6 (31.0-37.0) g/dL RDW 12.4 (11.5-15.5) % Plt Count 219 (150-450) k/uL Neutrophils % 56 % Lymphocytes % 34 % Monocytes % 6 % Eosinophils % 2 % Basophils % 1 % Neutrophils # 5.5 (1.3-7.7) k/uL Lymphocytes # 3.3 (1.0-4.8) k/uL Monocytes # 0.6 (0-1.0) k/uL Eosinophils # 0.1 (0-0.7) k/uL Basophils # 0.1 (0-0.2) k/uL PT (9.0-12.0) sec INR (<1.2) APTT (22.0-30.0) sec Sodium 140 (137-145) mmol/L Potassium 3.6 (3.5-5.1) mmol/L Chloride 108 H (98-107) mmol/L Carbon Dioxide 23 (22-30) mmol/L Anion Gap 9 mmol/L BUN 5 L (7-17) mg/dL Creatinine 0.57 (0.52-1.04) mg/dL Est GFR (CKD-EPI)AfAm >90 (>60 ml/min/1.73 sqM) Est GFR (CKD-EPI)NonAf >90 (>60 ml/min/1.73 sqM) Glucose 111 H (74-99) mg/dL Plasma Lactic Acid [place] 1.1 (0.7-2.0) mmol/L Calcium 10.1 (8.4-10.2) mg/dL Total Bilirubin 3.3 H (0.2-1.3) mg/dL AST 20 (14-36) U/L ALT 16 (4-34) U/L Alkaline Phosphatase 92 (38-126) U/L Total Protein 7.5 (6.3-8.2) g/dL Albumin 4.7 (3.5-5.0) g/dL Amylase 50 (30-110) U/L Lipase 42 (23-300) U/L Urine Color Urine Appearance (Clear) Urine pH (5.0-8.0) Ur Specific [place] (1.001-1.035) Urine Protein (Negative) Urine Glucose (UA) (Negative) Urine Ketones (Negative) Urine Blood (Negative) Urine Nitrite (Negative) Urine Bilirubin (Negative) Urine Urobilinogen (<2.0) mg/dL Ur Leukocyte Esterase (Negative) Urine RBC (0-5) /hpf Urine WBC (0-5) /hpf Ur Squamous Epith Cells (0-4) /hpf Calcium Oxalate Crystal (None) /hpf Urine Bacteria (None) /hpf Urine Mucus (None) /hpf 09/28/19 09/28/19 Range/Units 21:06 21:20 WBC (3.8-10.6) k/uL RBC (3.80-5.40) m/uL Hgb (11.4-16.0) gm/dL Hct (34.0-46.0) % MCV (80.0-100.0) fL MCH (25.0-35.0) pg MCHC (31.0-37.0) g/dL RDW (11.5-15.5) % Plt Count (150-450) k/uL Neutrophils % % Lymphocytes % % Monocytes % % Eosinophils % % Basophils % % Neutrophils # (1.3-7.7) k/uL Lymphocytes # (1.0-4.8) k/uL Monocytes # (0-1.0) k/uL Eosinophils # (0-0.7) k/uL Basophils # (0-0.2) k/uL PT 9.9 (9.0-12.0) sec INR 0.9 (<1.2) APTT 23.8 (22.0-30.0) sec Sodium (137-145) mmol/L Potassium (3.5-5.1) mmol/L Chloride (98-107) mmol/L Carbon Dioxide (22-30) mmol/L Anion Gap mmol/L BUN (7-17) mg/dL Creatinine (0.52-1.04) mg/dL Est GFR (CKD-EPI)AfAm (>60 ml/min/1.73 sqM) Est GFR (CKD-EPI)NonAf (>60 ml/min/1.73 sqM) Glucose (74-99) mg/dL Plasma Lactic Acid [place] (0.7-2.0) mmol/L Calcium (8.4-10.2) mg/dL Total Bilirubin (0.2-1.3) mg/dL AST (14-36) U/L ALT (4-34) U/L Alkaline Phosphatase (38-126) U/L Total Protein (6.3-8.2) g/dL Albumin (3.5-5.0) g/dL Amylase (30-110) U/L Lipase (23-300) U/L Urine Color Yellow Urine Appearance Cloudy H (Clear) Urine pH 5.5 (5.0-8.0) Ur Specific [place] 1.023 (1.001-1.035) Urine Protein Trace H (Negative) Urine Glucose (UA) Negative (Negative) Urine Ketones Trace H (Negative) Urine Blood Small H (Negative) Urine Nitrite Negative (Negative) Urine Bilirubin Negative (Negative) Urine Urobilinogen <2.0 (<2.0) mg/dL Ur Leukocyte Esterase Negative (Negative) Urine RBC 5 (0-5) /hpf Urine WBC 1 (0-5) /hpf Ur Squamous Epith Cells 6 H (0-4) /hpf Calcium Oxalate Crystal Occasional H (None) /hpf Urine Bacteria Rare H (None) /hpf Urine Mucus Many H (None) /hpf - Radiology Data Radiology results: report reviewed, image reviewed Two-view x-ray of the abdomen is obtained. Report was reviewed in its entirety. Impression by Dr. Byers shows nonacute abdomen. No change. Disposition Clinical Impression: Abdominal pain Disposition: HOME SELF-CARE Condition: Good Instructions (If sedation given, give patient instructions): Abdominal Pain (ED) Additional Instructions: Start with clear liquid diet. Call Dr. Cherry's office in the morning for appointment. Return to the emergency department for any new, worsening, or concerning symptoms. Prescriptions: Ondansetron [Zofran ODT] 4 mg PO Q8HR PRN #10 tab PRN Reason: Nausea Is patient prescribed a controlled substance at d/c from ED?: No Referrals: Arslan Grady MD [Primary Care Provider] - 1-2 days Time of Disposition: 23:26
[2019-09-28 21:19] LABS: Basophils # (A) 0.1 k/uL (0-0.2); Basophils % (A) 1 %; Eosinophils # (A) 0.1 k/uL (0-0.7); Eosinophils % (A) 2 %; HCT 45.6 % (34.0-46.0); HGB 15.3 gm/dL (11.4-16.0); Lymphocytes # (A) 3.3 k/uL (1.0-4.8); Lymphocytes % (A) 34 %; MCH 29.7 pg (25.0-35.0); MCHC 33.6 g/dL (31.0-37.0); MCV 88.4 fL (80.0-100.0); Mean Platelet Volume 9.2; Monocytes # (A) 0.6 k/uL (0-1.0); Monocytes % (A) 6 %; Neutrophils # (A) 5.5 k/uL (1.3-7.7); Neutrophils % (A) 56 %; Platelet Count 219 k/uL (150-450); RBC 5.16 m/uL (3.80-5.40); RDW 12.4 % (11.5-15.5); WBC 9.8 k/uL (3.8-10.6)
[2019-09-28 21:29] LABS: INR 0.9 (<1.2); Partial Thromboplastin Time 23.8 sec (22.0-30.0); Prothrombin Time 9.9 sec (9.0-12.0)
[2019-09-28 21:31] LABS: ALT 16 U/L (4-34); AST 20 U/L (14-36); African American GFR (CKD) >90 (>60 ml/min/1.73 sqM); Albumin 4.7 g/dL (3.5-5.0); Alkaline Phosphatase 92 U/L (38-126); Amylase 50 U/L (30-110); Anion Gap 9 mmol/L; Blood Urea Nitrogen 5 mg/dL (7-17); Calcium 10.1 mg/dL (8.4-10.2); Carbon Dioxide 23 mmol/L (22-30); Chloride 108 mmol/L (98-107); Glucose 111 mg/dL (74-99); Non-African American GFR(CKD) >90 (>60 ml/min/1.73 sqM); Potassium 3.6 mmol/L (3.5-5.1); Sodium 140 mmol/L (137-145); Total Bilirubin 3.3 mg/dL (0.2-1.3); Total Protein 7.5 g/dL (6.3-8.2)
[2019-09-28 21:44] LABS: Appearance,Urine Cloudy (Clear); Bacteria,Urine Rare /hpf; Bilirubin,Urine Negative (Negative); Blood,Urine Small (Negative); Calcium Oxalate Crystals,Urine Occasional /hpf; Color,Urine Yellow; Glucose,Urine (UA) Negative (Negative); Ketones,Urine Trace (Negative); Leukocyte Esterase,Urine Negative (Negative); Mucus,Urine Many /hpf; Nitrite,Urine Negative (Negative); PH, Urine 5.5 (5.0-8.0); Protein,Urine Trace (Negative); RBC,Urine 5 /hpf (0-5); Specific Gravity,Urine 1.023 (1.001-1.035); Squamous Epithelial Cell,Urine 6 /hpf (0-4); Urobilinogen,Urine <2.0 mg/dL (<2.0); WBC,Urine 1 /hpf (0-5)
--- NOTE | 2019-09-28 21:52 | XR ---
EXAMINATION TYPE: XR KUB DATE OF EXAM: 09/28/2019 COMPARISON: 08/08/2016 HISTORY: Abdominal pain TECHNIQUE: 2 views upright FINDINGS: There is no sign of intestinal obstruction or pneumoperitoneum. Fecal pattern is normal. Th ere is no evidence of a mass. There are no pathologic calcifications over the kidneys. IMPRESSION: Nonacute abdomen. No change.
[2019-09-28] MEDS ORDERED: HYDROmorphone 1 MG/ML 1 ML SYRINGE IVP STA (22:34)
[2019-09-28 23:15] VITALS: BP 148/87; PULSE 66; RESP 16
== END 2019-09-28 23:47 | disposition home or self-care (01) ==
LOC: EC 20:40
DX: R10.10 Upper abdominal pain, unspecified (principal); R11.0 Nausea; R19.7 Diarrhea, unspecified; R10.816 Epigastric abdominal tenderness; F41.9 Anxiety disorder, unspecified; F32.9 Major depressive disorder, single episode, unspecified; Z79.899 Other long term (current) drug therapy; Z88.5 Allergy status to narcotic agent; Z88.6 Allergy status to analgesic agent; Z90.49 Acquired absence of other specified parts of digestive tract; Z90.710 Acquired absence of both cervix and uterus; Z87.891 Personal history of nicotine dependence; Z85.42 Personal history of malignant neoplasm of other parts of uterus
CPT/HCPCS: 36415; 80053; 82150; 83605; 83690; 85025; 85610; 85730; 81001; 74018; 99284; 96374; 96375 ×2; 96361 ×2; 96372; J0500; J2405; J2270; J1170

== ENCOUNTER → 2019-10-14 | Outpatient (CLI) | payer OTHER ==
[2019-10-14 14:18] LABS: Basophils % (A) 0 %; Eosinophils # (A) 0.1 k/uL (0-0.7); Eosinophils % (A) 1 %; HGB 15.1 gm/dL (11.4-16.0); Lymphocytes # (A) 2.5 k/uL (1.0-4.8); Lymphocytes % (A) 23 %; MCH 30.7 pg (25.0-35.0); MCHC 34.3 g/dL (31.0-37.0); MCV 89.5 fL (80.0-100.0); Mean Platelet Volume 9.7; Monocytes # (A) 0.4 k/uL (0-1.0); Monocytes % (A) 4 %; Neutrophils # (A) 7.7 k/uL (1.3-7.7); Neutrophils % (A) 71 %; Platelet Count 187 k/uL (150-450); RBC 4.92 m/uL (3.80-5.40); RDW 12.6 % (11.5-15.5); WBC 10.9 k/uL (3.8-10.6)
[2019-10-14 15:22] LABS: Erythrocyte Sedimentation Rate 4 mm/hr (0-20)
[2019-10-14 19:56] LABS: ALT 15 U/L (8-44); AST 15 U/L (13-35); African American GFR (CKD) 104.7 (60.0-200.0); Albumin/Globulin Ratio 2.65 (1.60-3.17); Alkaline Phosphatase 73 U/L (41-126); BUN/Creat Ratio 6.25 Ratio (12.00-20.00); C Reactive Protein <0.4 mg/dL (0.0-0.8); Calcium 9.1 mg/dL (8.7-10.3); Carbon Dioxide 20.3 mmol/L (21.6-31.8); Chloride 109 mmol/L (96-109); Globulin 1.7 g/dL (1.6-3.3); Glucose 164 mg/dL (70-110); Non-African American GFR(CKD) 90.3 (60.0-200.0); Potassium 3.4 mmol/L (3.5-5.5); Sodium 141 mmol/L (135-145); Total Bilirubin 1.4 mg/dL (0.3-1.2); Total Protein 6.2 g/dL (6.2-8.2)
[2019-10-14 20:42] LABS: Gliadin AB IgA, Deaminated NEGATIVE (NEGATIVE); Gliadin AB IgA, Unit <0.2 U/mL; Gliadin AB IgG, Deaminated NEGATIVE (NEGATIVE)
== END | disposition home or self-care (01) ==
LOC: LABWHC1 13:46
PROVIDERS: ATTEND Internal Medicine
DX: R19.7 Diarrhea, unspecified (principal)
CPT/HCPCS: 36415; 80053; 82656; 83516; 83630; 83993; 84439; 84443; 85025; 85652; 86140; 87045; 87046; 87328; 87329

== ENCOUNTER 2019-11-30 15:59 | Emergency (ER) | payer OTHER ==
[2019-11-30 16:04] VITALS: BP 134/100; RESP 18
[2019-11-30] MEDS ORDERED: SODIUM CHLORIDE 0.9% 2,000 ML IV STA (16:20)
[2019-11-30] MEDS ORDERED: ONDANSETRON 4 MG/2 ML VIAL IVP STA (16:20)
[2019-11-30] MEDS ORDERED: DICYCLOMINE 10 MG/ML 2 ML AMP IM STA (16:20)
[2019-11-30] MEDS ORDERED: PANTOPRAZOLE 40 MG/10 ML VIAL IVP STA (16:20)
[2019-11-30 16:46] LABS: Basophils % (A) 0 %; Eosinophils # (A) 0.2 k/uL (0-0.7); Eosinophils % (A) 3 %; HCT 45.5 % (34.0-46.0); HGB 15.2 gm/dL (11.4-16.0); Lymphocytes # (A) 2.1 k/uL (1.0-4.8); Lymphocytes % (A) 28 %; MCH 29.8 pg (25.0-35.0); MCHC 33.5 g/dL (31.0-37.0); Mean Platelet Volume 9.6; Monocytes # (A) 0.3 k/uL (0-1.0); Monocytes % (A) 3 %; Neutrophils # (A) 4.8 k/uL (1.3-7.7); Neutrophils % (A) 64 %; Platelet Count 230 k/uL (150-450); RBC 5.11 m/uL (3.80-5.40); RDW 12.8 % (11.5-15.5); WBC 7.6 k/uL (3.8-10.6)
[2019-11-30 16:59] LABS: ALT 18 U/L (4-34); AST 19 U/L (14-36); African American GFR (CKD) >90 (>60 ml/min/1.73 sqM); Albumin 4.5 g/dL (3.5-5.0); Alkaline Phosphatase 83 U/L (38-126); Anion Gap 11 mmol/L; Blood Urea Nitrogen 9 mg/dL (7-17); Calcium 9.4 mg/dL (8.4-10.2); Carbon Dioxide 21 mmol/L (22-30); Chloride 109 mmol/L (98-107); Glucose 91 mg/dL (74-99); Non-African American GFR(CKD) >90 (>60 ml/min/1.73 sqM); Sodium 141 mmol/L (137-145); Total Bilirubin 1.2 mg/dL (0.2-1.3); Total Protein 7.2 g/dL (6.3-8.2)
--- NOTE | 2019-11-30 17:09 | ED ---
Abdominal Pain HPI - General Chief Complaint: Abdominal Pain Stated Complaint: abdominal pain Time Seen by Provider: 11/30/19 16:10 Source: patient Mode of arrival: ambulatory Limitations: no limitations - History of Present Illness Initial Comments: Patient is a 44-year-old female presenting to the emergency department with a chief complaint of diarrhea. Patient states recurrent diarrhea for past 2-3 months. States she was evaluated by her primary care multiple times. States she also was evaluated by who performed both upper and lower scopes. Patient reports there was a gastric ulcer that was found initially in August which has since resolved with medication. Patient reports the diarrhea is still persistent. States she does have occasional bloody diarrhea. He states at this point this is typical for her. States normally she does have abdominal pain with the constant diarrhea. States she is typically well hydrated with Pedialyte. States the most recent abdominal pain started about 3 days ago and it's mostly located in the suprapubic region. Denies any urinary symptoms. Denies any vaginal symptoms. Denies any hematuria or melena. Denies any fevers or chills at home. States she was evaluated multiple times for C. diff which yielded negative results. Denies chest pain shortness of breath Bactrim. - Related Data Home Medications Medication Instructions Recorded Confirmed ALPRAZolam [Xanax] 0.25 mg PO BID PRN 08/06/19 09/07/19 Citalopram Hydrobromide [CeleXA] 10 mg PO QAM 08/06/19 09/07/19 Dicyclomine [Bentyl] 20 mg PO QID 08/06/19 09/07/19 Omeprazole 20 mg PO QAM 08/06/19 09/07/19 Docusate [Colace] 100 mg PO DAILY 09/07/19 09/07/19 Previous Rx's Medication Instructions Recorded HYDROcodone/APAP 7.5-325MG [[place] 1 tab PO Q6HR PRN 3 Days #12 tab 09/04/19 7.5-325] Ondansetron [Zofran ODT] 4 mg PO Q8HR PRN #10 tab 09/28/19 Allergies Allergy/AdvReac Type Severity Reaction Status Date / Time ketorolac tromethamine Allergy Rash/Hives Verified 11/30/19 16:05 [From Toradol] tramadol Allergy Rash/Hives Verified 11/30/19 16:05 Review of Systems ROS Statement: Those systems with pertinent positive or pertinent negative responses have been documented in the HPI. ROS Other: All systems not noted in ROS Statement are negative. Past Medical History Past Medical History: Asthma, Cancer, COPD, Pneumonia Additional Past Medical History / Comment(s): hx of stomach ulcers, hx of H. Pylori, current frequent diarrhea, blood in stool, vomiting, uterine cancer, left and right carpal tunnel, restless leg syndrome History of Any Multi-Drug Resistant Organisms: None Reported Past Surgical History: Cholecystectomy, Hernia Repair, Hysterectomy, Orthopedic Surgery, Tubal Ligation Additional Past Surgical History / Comment(s): rt carpal tunnel Past Anesthesia/Blood Transfusion Reactions: No Reported Reaction Past Psychological History: Anxiety, Depression Smoking Status: Former smoker Past Alcohol Use History: Occasional Past Drug Use History: None Reported - Past Family History Mother Family Medical History: No Reported History General Exam Limitations: no limitations General appearance: alert, in no apparent distress Head exam: Present: atraumatic, normocephalic, normal inspection Eye exam: Present: normal appearance Pupils: Present: normal accommodation ENT exam: Present: normal exam, normal oropharynx, mucous membranes dry, TM's normal bilaterally, normal external ear exam Neck exam: Present: normal inspection, full ROM Respiratory exam: Present: normal lung sounds bilaterally Cardiovascular Exam: Present: regular rate, normal rhythm, normal heart sounds GI/Abdominal exam: Present: soft, tenderness, normal bowel sounds. Absent: distended, guarding (Suprapubic tenderness.), rebound, rigid Extremities exam: Present: normal inspection, full ROM Back exam: Present: normal inspection, full ROM Neurological exam: Present: alert, oriented X3 Psychiatric exam: Present: normal affect, normal mood Skin exam: Present: warm, dry, intact, normal color Course Vital Signs 11/30/19 11/30/19 11/30/19 16:01 19:07 19:13 Temperature 98.4 F 98 F 98 F Pulse Rate 103 H 73 73 Respiratory 18 18 18 Rate Blood Pressure 134/100 134/100 134/100 O2 Sat by Pulse 97 99 99 Oximetry Medical Decision Making - Medical Decision Making Patient is a 44-year-old female with a history of recurrent diarrhea presenting to emergency Department with a chief complaint of diarrhea. Symptoms have been ongoing for the past 2-3 months. Patient is given Valium multiple times by a GI specialist. Patient does take antidiarrheals without any significance. States the bloody diarrhea has been evident on and off for the past 2-3 months. On exam patient does appear to have dry mucous membranes with some suprapubic tenderness. CBC CMP and UA are unremarkable. Patient was given fluids and antiemetics and Bentyl. Reevaluation patient reports improvement in symptoms. States she already has an appointment to see the GI specialist this week. Return parameters were thoroughly discussed with patient was understanding and agreeable. Case discussed with physician. - Lab Data Result diagrams: 11/30/19 16:30 11/30/19 16:30 Lab Results 11/30/19 11/30/19 11/30/19 Range/Units 16:30 16:30 16:50 WBC 7.6 (3.8-10.6) k/uL RBC 5.11 (3.80-5.40) m/uL Hgb 15.2 (11.4-16.0) gm/dL Hct 45.5 (34.0-46.0) % MCV 89.0 (80.0-100.0) fL MCH 29.8 (25.0-35.0) pg MCHC 33.5 (31.0-37.0) g/dL RDW 12.8 (11.5-15.5) % Plt Count 230 (150-450) k/uL Neutrophils % 64 % Lymphocytes % 28 % Monocytes % 3 % Eosinophils % 3 % Basophils % 0 % Neutrophils # 4.8 (1.3-7.7) k/uL Lymphocytes # 2.1 (1.0-4.8) k/uL Monocytes # 0.3 (0-1.0) k/uL Eosinophils # 0.2 (0-0.7) k/uL Basophils # 0.0 (0-0.2) k/uL Sodium 141 (137-145) mmol/L Potassium 4.0 (3.5-5.1) mmol/L Chloride 109 H (98-107) mmol/L Carbon Dioxide 21 L (22-30) mmol/L Anion Gap 11 mmol/L BUN 9 (7-17) mg/dL Creatinine 0.66 (0.52-1.04) mg/dL Est GFR (CKD-EPI)AfAm >90 (>60 ml/min/1.73 sqM) Est GFR (CKD-EPI)NonAf >90 (>60 ml/min/1.73 sqM) Glucose 91 (74-99) mg/dL Calcium 9.4 (8.4-10.2) mg/dL Total Bilirubin 1.2 (0.2-1.3) mg/dL AST 19 (14-36) U/L ALT 18 (4-34) U/L Alkaline Phosphatase 83 (38-126) U/L Total Protein 7.2 (6.3-8.2) g/dL Albumin 4.5 (3.5-5.0) g/dL Urine Color Colorless Urine Appearance Clear (Clear) Urine pH 5.5 (5.0-8.0) Ur Specific [place] 1.004 (1.001-1.035) Urine Protein Negative (Negative) Urine Glucose (UA) Negative (Negative) Urine Ketones Negative (Negative) Urine Blood Negative (Negative) Urine Nitrite Negative (Negative) Urine Bilirubin Negative (Negative) Urine Urobilinogen <2.0 (<2.0) mg/dL Ur Leukocyte Esterase Negative (Negative) Disposition Clinical Impression: Abdominal pain, Diarrhea Disposition: HOME SELF-CARE Condition: Stable Instructions (If sedation given, give patient instructions): Chronic Diarrhea (ED) Additional Instructions: Follow-up with your GI specialist. Return to emergency department if symptoms worsen. Is patient prescribed a controlled substance at d/c from ED?: No Referrals: Arslan Grady MD [Primary Care Provider] - 1-2 days Time of Disposition: 18:57
[2019-11-30 18:20] LABS: Appearance,Urine Clear (Clear); Bilirubin,Urine Negative (Negative); Blood,Urine Negative (Negative); Color,Urine Colorless; Glucose,Urine (UA) Negative (Negative); Ketones,Urine Negative (Negative); Leukocyte Esterase,Urine Negative (Negative); Nitrite,Urine Negative (Negative); PH, Urine 5.5 (5.0-8.0); Protein,Urine Negative (Negative); Specific Gravity,Urine 1.004 (1.001-1.035); Urobilinogen,Urine <2.0 mg/dL (<2.0)
[2019-11-30 19:09] VITALS: PULSE 73; TEMP 98
== END 2019-11-30 19:14 | disposition home or self-care (01) ==
LOC: EC 15:59
DX: R19.7 Diarrhea, unspecified (principal); R10.30 Lower abdominal pain, unspecified; F32.9 Major depressive disorder, single episode, unspecified; F41.9 Anxiety disorder, unspecified; Z87.891 Personal history of nicotine dependence; Z88.5 Allergy status to narcotic agent; Z88.6 Allergy status to analgesic agent; Z79.899 Other long term (current) drug therapy; Z85.42 Personal history of malignant neoplasm of other parts of uterus; Z90.710 Acquired absence of both cervix and uterus; Z90.49 Acquired absence of other specified parts of digestive tract; Z87.19 Personal history of other diseases of the digestive system
CPT/HCPCS: 36415; 80053; 85025; 81003; 99284; 96374; 96375; 96361 ×2; 96372; J0500; J2405; C9113

== ENCOUNTER 2019-12-02 19:46 | Emergency (ER) | payer OTHER ==
[2019-12-02 20:07] VITALS: RESP 18
[2019-12-02 21:04] LABS: Appearance,Urine Clear (Clear); Bilirubin,Urine Negative (Negative); Blood,Urine Trace (Negative); Color,Urine Yellow; Glucose,Urine (UA) Negative (Negative); Ketones,Urine 1+ (Negative); Leukocyte Esterase,Urine Negative (Negative); Mucus,Urine Few /hpf; Nitrite,Urine Negative (Negative); PH, Urine 5.5 (5.0-8.0); Protein,Urine Negative (Negative); RBC,Urine 2 /hpf (0-5); Specific Gravity,Urine 1.019 (1.001-1.035); Squamous Epithelial Cell,Urine 1 /hpf (0-4); Urobilinogen,Urine <2.0 mg/dL (<2.0); WBC,Urine 1 /hpf (0-5)
--- NOTE | 2019-12-02 21:10 | ED ---
General Adult HPI - General Chief complaint: Nausea/Vomiting/Diarrhea Stated complaint: Abd Pain,Diarrhea Time Seen by Provider: 12/02/19 21:06 Source: patient, RN notes reviewed Mode of arrival: ambulatory Limitations: no limitations - History of Present Illness Initial comments: 44-year-old female presents to the emergency department for abdominal pain and diarrhea 3 months. Patient states that she has had upper abdominal pain after having a David fundoplication 3 months ago. States that she has had persistent diarrhea. Patient has had extensive workups and imaging by GI and surgery. She is ultimately seeing a specialist in 2 days. Patient is here for pain management until that time. States that she is continuing to have diarrhea. Denies fevers or chills. States that it is a mucousy type of diarrhea. Patient states she did have a colonoscopy outpatient as well that did not show a cause for the diarrhea.Patient has no other complaints at this time including shortness of breath, chest pain, anausea or vomiting, headache, or visual changes. - Related Data Home Medications Medication Instructions Recorded Confirmed ALPRAZolam [Xanax] 0.25 mg PO BID PRN 08/06/19 09/07/19 Citalopram Hydrobromide [CeleXA] 10 mg PO QAM 08/06/19 09/07/19 Dicyclomine [Bentyl] 20 mg PO QID 08/06/19 09/07/19 Omeprazole 20 mg PO QAM 08/06/19 09/07/19 Docusate [Colace] 100 mg PO DAILY 09/07/19 09/07/19 Previous Rx's Medication Instructions Recorded HYDROcodone/APAP 7.5-325MG [[place] 1 tab PO Q6HR PRN 3 Days #12 tab 09/04/19 7.5-325] Ondansetron [Zofran ODT] 4 mg PO Q8HR PRN #10 tab 09/28/19 Allergies Allergy/AdvReac Type Severity Reaction Status Date / Time ketorolac tromethamine Allergy Rash/Hives Verified 12/02/19 20:04 [From Toradol] tramadol Allergy Rash/Hives Verified 12/02/19 20:04 Review of Systems ROS Statement: Those systems with pertinent positive or pertinent negative responses have been documented in the HPI. ROS Other: All systems not noted in ROS Statement are negative. Past Medical History Past Medical History: Asthma, Cancer, COPD, Pneumonia Additional Past Medical History / Comment(s): hx of stomach ulcers, hx of H. Pylori, current frequent diarrhea, blood in stool, vomiting, uterine cancer, left and right carpal tunnel, restless leg syndrome History of Any Multi-Drug Resistant Organisms: None Reported Past Surgical History: Cholecystectomy, Hernia Repair, Hysterectomy, Orthopedic Surgery, Tubal Ligation Additional Past Surgical History / Comment(s): rt carpal tunnel Past Anesthesia/Blood Transfusion Reactions: No Reported Reaction Past Psychological History: Anxiety, Depression Smoking Status: Former smoker Past Alcohol Use History: Occasional Past Drug Use History: None Reported - Past Family History Mother Family Medical History: No Reported History General Exam Limitations: no limitations General appearance: alert, in no apparent distress Head exam: Present: atraumatic, normocephalic, normal inspection Eye exam: Present: normal appearance, PERRL, EOMI. Absent: scleral icterus, conjunctival injection, periorbital swelling ENT exam: Present: normal exam, mucous membranes moist Neck exam: Present: normal inspection, full ROM. Absent: tenderness, meningismus, lymphadenopathy Respiratory exam: Present: normal lung sounds bilaterally. Absent: respiratory distress, wheezes, rales, rhonchi, stridor Cardiovascular Exam: Present: regular rate, normal rhythm, normal heart sounds. Absent: systolic murmur, diastolic murmur, rubs, gallop, clicks GI/Abdominal exam: Present: soft, tenderness (Mild epigastric and left upper quadrant tenderness. No guarding or rebound. No lower abdominal tenderness.), normal bowel sounds. Absent: distended, guarding, rebound, rigid Course Vital Signs 12/02/19 20:04 Temperature 98.4 F Pulse Rate 109 H Respiratory 18 Rate Blood Pressure 130/94 O2 Sat by Pulse 97 Oximetry Medical Decision Making - Medical Decision Making Patient underwent David fundoplication on 08/28/2019. Apparently since that time she has had pain. Patient had a CT on 09/04/2019 that showed a focal small bowel ileus in the left lower quadrant of uncertain etiology. She had an upper GI barium swallow at that time as well as showed no evidence of leak or obstruction. Patient also had an MRCP that showed minimal prominence of the CBD after cholecystectomy unchanged. Vitals stable. CBC and CMP unremarkable. Urinalysis unremarkable. Patient was given pain medication which did help with her symptoms. Patient has had extensive thorough workup here in the hospital and outpatient. Patient to see a specialist in [place] in 2 days. At this time patient will be discharged home to follow up with primary care. I did give patient Tylenol 3 and discussed no driving while taking this. Patient unable to give stool sample while in the emergency department. Patient is taking Bentyl as well. - Lab Data Result diagrams: 12/02/19 21:54 12/02/19 21:54 Lab Results 12/02/19 12/02/19 12/02/19 Range/Units 20:27 21:54 21:54 WBC 9.7 (3.8-10.6) k/uL RBC 5.20 (3.80-5.40) m/uL Hgb 15.6 (11.4-16.0) gm/dL Hct 45.8 (34.0-46.0) % MCV 88.1 (80.0-100.0) fL MCH 30.0 (25.0-35.0) pg MCHC 34.1 (31.0-37.0) g/dL RDW 12.8 (11.5-15.5) % Plt Count 241 (150-450) k/uL Neutrophils % 74 % Lymphocytes % 19 % Monocytes % 5 % Eosinophils % 1 % Basophils % 0 % Neutrophils # 7.2 (1.3-7.7) k/uL Lymphocytes # 1.8 (1.0-4.8) k/uL Monocytes # 0.5 (0-1.0) k/uL Eosinophils # 0.1 (0-0.7) k/uL Basophils # 0.0 (0-0.2) k/uL Sodium 139 (137-145) mmol/L Potassium 4.2 (3.5-5.1) mmol/L Chloride 108 H (98-107) mmol/L Carbon Dioxide 23 (22-30) mmol/L Anion Gap 8 mmol/L BUN 10 (7-17) mg/dL Creatinine 0.70 (0.52-1.04) mg/dL Est GFR (CKD-EPI)AfAm >90 (>60 ml/min/1.73 sqM) Est GFR (CKD-EPI)NonAf >90 (>60 ml/min/1.73 sqM) Glucose 96 (74-99) mg/dL Calcium 9.5 (8.4-10.2) mg/dL Total Bilirubin 1.2 (0.2-1.3) mg/dL AST 21 (14-36) U/L ALT 17 (4-34) U/L Alkaline Phosphatase 90 (38-126) U/L Total Protein 7.5 (6.3-8.2) g/dL Albumin 4.7 (3.5-5.0) g/dL Amylase 50 (30-110) U/L Lipase 37 (23-300) U/L Urine Color Yellow Urine Appearance Clear (Clear) Urine pH 5.5 (5.0-8.0) Ur Specific [place] 1.019 (1.001-1.035) Urine Protein Negative (Negative) Urine Glucose (UA) Negative (Negative) Urine Ketones 1+ H (Negative) Urine Blood Trace H (Negative) Urine Nitrite Negative (Negative) Urine Bilirubin Negative (Negative) Urine Urobilinogen <2.0 (<2.0) mg/dL Ur Leukocyte Esterase Negative (Negative) Urine RBC 2 (0-5) /hpf Urine WBC 1 (0-5) /hpf Ur Squamous Epith Cells 1 (0-4) /hpf Urine Mucus Few H (None) /hpf Urine HCG, Qual (Not Detectd) 12/02/19 Range/Units 21:54 WBC (3.8-10.6) k/uL RBC (3.80-5.40) m/uL Hgb (11.4-16.0) gm/dL Hct (34.0-46.0) % MCV (80.0-100.0) fL MCH (25.0-35.0) pg MCHC (31.0-37.0) g/dL RDW (11.5-15.5) % Plt Count (150-450) k/uL Neutrophils % % Lymphocytes % % Monocytes % % Eosinophils % % Basophils % % Neutrophils # (1.3-7.7) k/uL Lymphocytes # (1.0-4.8) k/uL Monocytes # (0-1.0) k/uL Eosinophils # (0-0.7) k/uL Basophils # (0-0.2) k/uL Sodium (137-145) mmol/L Potassium (3.5-5.1) mmol/L Chloride (98-107) mmol/L Carbon Dioxide (22-30) mmol/L Anion Gap mmol/L BUN (7-17) mg/dL Creatinine (0.52-1.04) mg/dL Est GFR (CKD-EPI)AfAm (>60 ml/min/1.73 sqM) Est GFR (CKD-EPI)NonAf (>60 ml/min/1.73 sqM) Glucose (74-99) mg/dL Calcium (8.4-10.2) mg/dL Total Bilirubin (0.2-1.3) mg/dL AST (14-36) U/L ALT (4-34) U/L Alkaline Phosphatase (38-126) U/L Total Protein (6.3-8.2) g/dL Albumin (3.5-5.0) g/dL Amylase (30-110) U/L Lipase (23-300) U/L Urine Color Urine Appearance (Clear) Urine pH (5.0-8.0) Ur Specific [place] (1.001-1.035) Urine Protein (Negative) Urine Glucose (UA) (Negative) Urine Ketones (Negative) Urine Blood (Negative) Urine Nitrite (Negative) Urine Bilirubin (Negative) Urine Urobilinogen (<2.0) mg/dL Ur Leukocyte Esterase (Negative) Urine RBC (0-5) /hpf Urine WBC (0-5) /hpf Ur Squamous Epith Cells (0-4) /hpf Urine Mucus (None) /hpf Urine HCG, Qual Not Detected (Not Detectd) Disposition Clinical Impression: Diarrhea, Abdominal pain Disposition: HOME SELF-CARE Condition: Good Instructions (If sedation given, give patient instructions): Abdominal Pain (ED) Additional Instructions: Please see your specialist at your scheduled appointment. Return for any worsening symptoms. Is patient prescribed a controlled substance at d/c from ED?: No Referrals: Arslan Grady MD [Primary Care Provider] - 1-2 days Time of Disposition: 22:51
[2019-12-02] MEDS ORDERED: SODIUM CHLORIDE 0.9% 1,000 ML IV STA (21:30)
[2019-12-02] MEDS ORDERED: ONDANSETRON 4 MG/2 ML VIAL IVP STA (21:30)
[2019-12-02] MEDS ORDERED: HYDROmorphone 0.5 MG/0.5 ML SYRINGE IVP STA (21:30)
[2019-12-02 22:20] LABS: ALT 17 U/L (4-34); AST 21 U/L (14-36); African American GFR (CKD) >90 (>60 ml/min/1.73 sqM); Albumin 4.7 g/dL (3.5-5.0); Alkaline Phosphatase 90 U/L (38-126); Amylase 50 U/L (30-110); Anion Gap 8 mmol/L; Basophils % (A) 0 %; Blood Urea Nitrogen 10 mg/dL (7-17); Calcium 9.5 mg/dL (8.4-10.2); Carbon Dioxide 23 mmol/L (22-30); Chloride 108 mmol/L (98-107); Eosinophils # (A) 0.1 k/uL (0-0.7); Eosinophils % (A) 1 %; Glucose 96 mg/dL (74-99); HCT 45.8 % (34.0-46.0); HGB 15.6 gm/dL (11.4-16.0); Lymphocytes # (A) 1.8 k/uL (1.0-4.8); Lymphocytes % (A) 19 %; MCHC 34.1 g/dL (31.0-37.0); MCV 88.1 fL (80.0-100.0); Mean Platelet Volume 9.8; Monocytes # (A) 0.5 k/uL (0-1.0); Monocytes % (A) 5 %; Neutrophils # (A) 7.2 k/uL (1.3-7.7); Neutrophils % (A) 74 %; Non-African American GFR(CKD) >90 (>60 ml/min/1.73 sqM); Platelet Count 241 k/uL (150-450); Potassium 4.2 mmol/L (3.5-5.1); RDW 12.8 % (11.5-15.5); Sodium 139 mmol/L (137-145); Total Bilirubin 1.2 mg/dL (0.2-1.3); Total Protein 7.5 g/dL (6.3-8.2); WBC 9.7 k/uL (3.8-10.6)
[2019-12-02] MEDS ORDERED: ACET/COD 300 MG/30 MG STARTER PACK 6 TAB BTL PO STA (22:52)
[2019-12-02 23:19] VITALS: BP 158/91; PULSE 79; TEMP 96.3
== END 2019-12-02 23:24 | disposition home or self-care (01) ==
LOC: EC 19:46
DX: R19.7 Diarrhea, unspecified (principal); R10.10 Upper abdominal pain, unspecified; F32.9 Major depressive disorder, single episode, unspecified; F41.9 Anxiety disorder, unspecified; Z87.891 Personal history of nicotine dependence; Z88.5 Allergy status to narcotic agent; Z88.6 Allergy status to analgesic agent; Z79.899 Other long term (current) drug therapy; Z87.19 Personal history of other diseases of the digestive system; Z85.42 Personal history of malignant neoplasm of other parts of uterus; Z90.710 Acquired absence of both cervix and uterus; Z98.84 Bariatric surgery status; Z90.49 Acquired absence of other specified parts of digestive tract
CPT/HCPCS: 36415; 80053; 82150; 83690; 85025; 81001; 81025; 99284; 96374; 96375; 96361 ×2; J2405; J1170

== ENCOUNTER 2020-07-13 22:09 | Emergency (ER) | payer OTHER ==
--- NOTE | 2020-07-13 23:34 | ED ---
Extremity Problem HPI - General Chief complaint: Extremity Problem,Nontraumatic Stated complaint: feet swelling & purple Time Seen by Provider: 07/13/20 22:25 Source: patient Mode of arrival: ambulatory Limitations: no limitations - History of Present Illness MD Complaint: extremity swelling Onset/Timin -: month(s) Location: bilateral lower extremity Radiation: none Consistency: constant Improves with: nothing Worsens with: nothing Associated Symptoms: denies other symptoms - Related Data Home Medications Medication Instructions Recorded Confirmed Buprenorphine HCl/Naloxone HCl 1 film SL BID 07/13/20 07/13/20 [Suboxone 8 mg-2 mg Sl Film] Citalopram Hydrobromide [CeleXA] 40 mg PO DAILY 07/13/20 07/13/20 Gabapentin 600 mg PO TID 07/13/20 07/13/20 QUEtiapine [SEROquel] 100 - 200 mg PO HS PRN 07/13/20 07/13/20 amLODIPine [Norvasc] 5 mg PO DAILY 07/13/20 07/13/20 hydrOXYzine pamoate [hydrOXYzine 25 mg PO Q4H PRN 07/13/20 07/13/20 PAMOATE] tiZANidine [Zanaflex] 4 mg PO Q6H PRN 07/13/20 07/13/20 Previous Rx's Medication Instructions Recorded Furosemide [Lasix] 20 mg PO DAILY #7 tab 07/14/20 Allergies Allergy/AdvReac Type Severity Reaction Status Date / Time ketorolac tromethamine Allergy Rash/Hives Verified 07/13/20 22:54 [From Toradol] tramadol Allergy Rash/Hives Verified 07/13/20 22:54 Review of Systems ROS Statement: Those systems with pertinent positive or pertinent negative responses have been documented in the HPI. ROS Other: All systems not noted in ROS Statement are negative. Constitutional: Denies: fever, chills, weakness Respiratory: Denies: cough, dyspnea Cardiovascular: Reports: as per HPI, edema. Denies: chest pain, palpitations, dyspnea on exertion, orthopnea Gastrointestinal: Denies: abdominal pain, nausea, vomiting, diarrhea Genitourinary: Denies: dysuria, hematuria Musculoskeletal: Denies: back pain Skin: Denies: rash Neurological: Denies: headache, weakness, numbness Past Medical History Past Medical History: Asthma, Cancer, COPD, Pneumonia Additional Past Medical History / Comment(s): hx of stomach ulcers, hx of H. Pylori, current frequent diarrhea, blood in stool, vomiting, uterine cancer, left and right carpal tunnel, restless leg syndrome History of Any Multi-Drug Resistant Organisms: None Reported Past Surgical History: Cholecystectomy, Hernia Repair, Hysterectomy, Orthopedic Surgery, Tubal Ligation Additional Past Surgical History / Comment(s): rt carpal tunnel Past Anesthesia/Blood Transfusion Reactions: No Reported Reaction Past Psychological History: Anxiety, Depression Smoking Status: Current every day smoker Past Alcohol Use History: Occasional Past Drug Use History: None Reported - Past Family History Mother Family Medical History: No Reported History General Exam Limitations: no limitations General appearance: alert, in no apparent distress Head exam: Present: atraumatic, normocephalic Eye exam: Present: normal appearance. Absent: scleral icterus, conjunctival injection Neck exam: Present: normal inspection Respiratory exam: Present: normal lung sounds bilaterally. Absent: respiratory distress, wheezes, rales, rhonchi, stridor Cardiovascular Exam: Present: regular rate, normal rhythm, normal heart sounds. Absent: systolic murmur, diastolic murmur, rubs, gallop GI/Abdominal exam: Present: soft. Absent: distended, tenderness, guarding, rebound, rigid, pulsatile mass, hernia Extremities exam: Present: normal inspection, normal capillary refill. Absent: pedal edema, calf tenderness Back exam: Present: normal inspection. Absent: CVA tenderness (R), CVA tenderness (L) Neurological exam: Present: alert Skin exam: Present: warm, dry, intact, normal color. Absent: rash Course Vital Signs 07/13/20 07/13/20 22:18 23:21 Temperature 99 F 98.7 F Pulse Rate 86 80 Respiratory 20 18 Rate Blood Pressure 119/76 111/74 O2 Sat by Pulse 97 95 Oximetry Medical Decision Making - Lab Data Result diagrams: 07/13/20 23:22 07/13/20 23:22 Lab Results 07/13/20 07/13/20 07/13/20 Range/Units 23:22 23:22 23:22 WBC 6.0 (3.8-10.6) k/uL RBC 4.61 (3.80-5.40) m/uL Hgb 13.6 (11.4-16.0) gm/dL Hct 39.4 (34.0-46.0) % MCV 85.6 (80.0-100.0) fL MCH 29.4 (25.0-35.0) pg MCHC 34.4 (31.0-37.0) g/dL RDW 12.4 (11.5-15.5) % Plt Count 210 (150-450) k/uL Neutrophils % 51 % Lymphocytes % 36 % Monocytes % 7 % Eosinophils % 3 % Basophils % 1 % Neutrophils # 3.1 (1.3-7.7) k/uL Lymphocytes # 2.2 (1.0-4.8) k/uL Monocytes # 0.5 (0-1.0) k/uL Eosinophils # 0.2 (0-0.7) k/uL Basophils # 0.1 (0-0.2) k/uL D-Dimer 0.45 (<0.60) mg/L FEU Sodium 137 (137-145) mmol/L Potassium 3.8 (3.5-5.1) mmol/L Chloride 107 (98-107) mmol/L Carbon Dioxide 26 (22-30) mmol/L Anion Gap 4 mmol/L BUN 8 (7-17) mg/dL Creatinine 0.64 (0.52-1.04) mg/dL Est GFR (CKD-EPI)AfAm >90 (>60 ml/min/1.73 sqM) Est GFR (CKD-EPI)NonAf >90 (>60 ml/min/1.73 sqM) Glucose 102 H (74-99) mg/dL Calcium 9.0 (8.4-10.2) mg/dL Total Bilirubin 1.1 (0.2-1.3) mg/dL AST 39 H (14-36) U/L ALT 41 H (4-34) U/L Alkaline Phosphatase 87 (38-126) U/L NT-Pro-B Natriuret Pep pg/mL Total Protein 6.4 (6.3-8.2) g/dL Albumin 3.8 (3.5-5.0) g/dL 07/13/20 Range/Units 23:22 WBC (3.8-10.6) k/uL RBC (3.80-5.40) m/uL Hgb (11.4-16.0) gm/dL Hct (34.0-46.0) % MCV (80.0-100.0) fL MCH (25.0-35.0) pg MCHC (31.0-37.0) g/dL RDW (11.5-15.5) % Plt Count (150-450) k/uL Neutrophils % % Lymphocytes % % Monocytes % % Eosinophils % % Basophils % % Neutrophils # (1.3-7.7) k/uL Lymphocytes # (1.0-4.8) k/uL Monocytes # (0-1.0) k/uL Eosinophils # (0-0.7) k/uL Basophils # (0-0.2) k/uL D-Dimer (<0.60) mg/L FEU Sodium (137-145) mmol/L Potassium (3.5-5.1) mmol/L Chloride (98-107) mmol/L Carbon Dioxide (22-30) mmol/L Anion Gap mmol/L BUN (7-17) mg/dL Creatinine (0.52-1.04) mg/dL Est GFR (CKD-EPI)AfAm (>60 ml/min/1.73 sqM) Est GFR (CKD-EPI)NonAf (>60 ml/min/1.73 sqM) Glucose (74-99) mg/dL Calcium (8.4-10.2) mg/dL Total Bilirubin (0.2-1.3) mg/dL AST (14-36) U/L ALT (4-34) U/L Alkaline Phosphatase (38-126) U/L NT-Pro-B Natriuret Pep 195 pg/mL Total Protein (6.3-8.2) g/dL Albumin (3.5-5.0) g/dL Disposition Clinical Impression: Transaminitis, Edema of both legs Disposition: HOME SELF-CARE Condition: Good Instructions (If sedation given, give patient instructions): Leg Edema (ED) Prescriptions: Furosemide [Lasix] 20 mg PO DAILY #7 tab Is patient prescribed a controlled substance at d/c from ED?: No Referrals: Arslan Grady MD [Primary Care Provider] - 1-2 days
[2020-07-13 23:43] LABS: Basophils # (A) 0.1 k/uL (0-0.2); Basophils % (A) 1 %; Eosinophils # (A) 0.2 k/uL (0-0.7); Eosinophils % (A) 3 %; HCT 39.4 % (34.0-46.0); HGB 13.6 gm/dL (11.4-16.0); Lymphocytes # (A) 2.2 k/uL (1.0-4.8); Lymphocytes % (A) 36 %; MCH 29.4 pg (25.0-35.0); MCHC 34.4 g/dL (31.0-37.0); MCV 85.6 fL (80.0-100.0); Monocytes # (A) 0.5 k/uL (0-1.0); Monocytes % (A) 7 %; Neutrophils # (A) 3.1 k/uL (1.3-7.7); Neutrophils % (A) 51 %; Platelet Count 210 k/uL (150-450); RBC 4.61 m/uL (3.80-5.40); RDW 12.4 % (11.5-15.5)
[2020-07-13 23:53] LABS: ALT 41 U/L (4-34); AST 39 U/L (14-36); African American GFR (CKD) >90 (>60 ml/min/1.73 sqM); Albumin 3.8 g/dL (3.5-5.0); Alkaline Phosphatase 87 U/L (38-126); Anion Gap 4 mmol/L; Blood Urea Nitrogen 8 mg/dL (7-17); Carbon Dioxide 26 mmol/L (22-30); Chloride 107 mmol/L (98-107); Glucose 102 mg/dL (74-99); Non-African American GFR(CKD) >90 (>60 ml/min/1.73 sqM); Potassium 3.8 mmol/L (3.5-5.1); Sodium 137 mmol/L (137-145); Total Bilirubin 1.1 mg/dL (0.2-1.3); Total Protein 6.4 g/dL (6.3-8.2)
[2020-07-14] MEDS ORDERED: FUROSEMIDE 40 MG TAB PO STA (00:13)
[2020-07-14 00:15] VITALS: RESP 18
[2020-07-14] MEDS ORDERED: IBUPROFEN 600 MG TAB PO STA (00:16)
[2020-07-14 01:59] VITALS: BP 101/73; PULSE 73; TEMP 98.3
[2020-07-14 10:18] LABS: Hepatitis A Antibody IgM Non-Reactive (Non-Reactive); Hepatitis B Core IgM Non-Reactive (Non-Reactive); Hepatitis B Surface Antigen Non-Reactive (Non-Reactive); Hepatitis C IgG Antibody Reactive (Non-Reactive)
== END 2020-07-14 01:00 | disposition home or self-care (01) ==
LOC: EC 22:09
DX: R74.01 Elevation of levels of liver transaminase levels (principal); R60.0 Localized edema; F41.9 Anxiety disorder, unspecified; F32.9 Major depressive disorder, single episode, unspecified; F17.200 Nicotine dependence, unspecified, uncomplicated; Z79.899 Other long term (current) drug therapy; Z88.5 Allergy status to narcotic agent; Z85.41 Personal history of malignant neoplasm of cervix uteri
CPT/HCPCS: 36415; 80053; 80074; 83880; 85025; 85379; 99283

== ENCOUNTER → 2021-07-24 | Outpatient (CLI) | payer OTHER ==
--- NOTE | 2021-07-24 15:41 | XR ---
EXAMINATION TYPE: XR chest 2V DATE OF EXAM: 07/24/2021 COMPARISON: NONE TECHNIQUE: PA and lateral views submitted. HISTORY: Pain FINDINGS: The lungs are clear and there is no pneumothorax, pleural effusion, or focal pneumonia. Heart size normal. No overt failure. Hypertrophic and degenerative change the spine. Surgical clips in the abdom en. IMPRESSION: 1. No acute process.
--- NOTE | 2021-07-24 15:43 | XR ---
EXAMINATION TYPE: XR thoracic spine complete DATE OF EXAM: 07/24/2021 COMPARISON: NONE HISTORY: Pain TECHNIQUE: 3 views submitted FINDINGS: Alignment is anatomic. There is no compression deformities. Atrophic and degenerative changes of the spine. Slight curvature of the spine. IMPRESSION: 1. Hypertrophic and degenerative change of the spine.
== END | disposition home or self-care (01) ==
LOC: RADXRMAIN 15:16
PROVIDERS: ATTEND Emergency Medicine
DX: M47.814 Spondylosis without myelopathy or radiculopathy, thoracic region (principal); R07.9 Chest pain, unspecified
CPT/HCPCS: 71046; 72072

== ENCOUNTER → 2023-05-07 | Outpatient (CLI) | payer BC, OTHER ==
--- NOTE | 2023-05-08 09:46 | MM ---
Reason for Exam: Screening (asymptomatic). Baseline mammogram. Patient History: Menarche at age 13. First Full-Term at age 19. Right ovary removed at age 37. Hysterectomy at age 37. Patient has history of breast feeding. Paternal grandmother had breast cancer. Paternal aunt had breast cancer at or over age 50. Last menstrual period: Risk Values: Pati 5 year model risk: 0.6%. NCI Lifetime model risk: 6.9%. Prior Study Comparison: Patient's first Mammogram. Tissue Density: The breast tissue is heterogeneously dense. This may lower the sensitivity of mammography. Findings: Analyzed By CAD. There is no suspicious group of microcalcifications or new suspicious mass in either breast. Overall Assessment: Negative, BI-RAD 1 Management: Screening Mammogram of both breasts in 1 year. . Patient should continue monthly self-breast exams. A clinical breast exam by your physician is recommended on an annual basis. This exam should not preclude additional follow-up of suspicious palpable abnormalities. Note on Pati scores and lifetime risk: 1. A Pati score greater than 3% is considered moderate risk. If this is the case, consider specialist referral to assess eligibility for a risk reducing agent. 2. If overall lifetime risk for the development of breast cancer is 20% or higher, the patient may qualify for future screening with alternating mammogram and breast MRI. Electronically signed and approved by: Misha Palma M.D. Radiologis
== END | disposition home or self-care (01) ==
LOC: RADMAMWWP 16:14
PROVIDERS: ATTEND Internal Medicine Addiction Medicine
DX: Z12.31 Encounter for screening mammogram for malignant neoplasm of breast (principal); Z80.3 Family history of malignant neoplasm of breast
CPT/HCPCS: 77063; 77067

== ENCOUNTER → 2024-06-09 | Outpatient (CLI) | payer BC ==
--- NOTE | 2024-06-09 23:09 | MR ---
EXAMINATION TYPE: MR lumbar spine wo con DATE OF EXAM: 06/09/2024 COMPARISON: None HISTORY: low back pain that radiates down left leg CONTRAST: 0 mL intravenous Gadavist. TECHNIQUE: Multiplanar, multisequence images of the lumbar spine were acquired. FINDINGS: Cord terminates at the L1 level. A limbus vertebra of L4 is present. Mild narrowing of the disc height at L3-4 was present on the comparison CT abdomen pelvis of 09/04/2019. Limbus vertebra w as also present previously. L5-S1: No significant disc bulge or disc herniation. No spinal canal stenosis. No foraminal stenosi s. Minimal left facet hypertrophy is present L4-L5: No significant disc bulge or disc herniation. No spinal canal stenosis. No foraminal stenosi s. Mild ligamentum flavum laxity is present with posterior lateral thecal sac compression. L3-L4: No significant disc bulge or disc herniation. No spinal canal stenosis. No foraminal stenosi s. Disc desiccation is present at L3-4. Some posterior increased signal on T2-weighted sequences wit hin the endplates of L3-4 may be some Modic type I degenerative change. This is slightly greater towa rds the left. Some minimal left paracentral disc bulge may be present on the sagittal plane images bu t not well-visualized the axial plane. Correlate with the patient's pain. There is severe pain, disci tis could be considered potentially within the differential. L2-L3: No significant disc bulge or disc herniation. No spinal canal stenosis. No foraminal stenosi s. L1-L2: No significant disc bulge or disc herniation. No spinal canal stenosis. No foraminal stenosi s. T12-L1: No significant disc bulge or disc herniation. No spinal canal stenosis. No foraminal stenos is. IMPRESSION: 1. Some degenerative changes in the posterior left L3-4 disc level and endplates may be present. This could be degenerative change. Consider possibility of discitis. 2. Direct abnormality to otherwise account for left lower extremity pain is not identified. [facility], , 06/09/2024 11:06 PM
== END | disposition home or self-care (01) ==
LOC: RADMRIMAIN 19:13
PROVIDERS: ATTEND Orthopaedic Surgery
DX: M47.26 Other spondylosis with radiculopathy, lumbar region (principal)
CPT/HCPCS: 72148

== ENCOUNTER 2024-07-20 13:56 | Day surgery (SDC) | payer BC ==
[~2024-07-20 13:56] MED LIST changes: -DEXAMETHASONE SOD PHOSPHATE 10 MG/ML 1 ML VIAL IV ONE; -HEPARIN SODIUM,PORCINE 5,000 UNIT/ML 1 ML VIAL SQ ONE; +LACTATED RINGERS 1,000 ML IV SCH; -LIDOCAINE 1% 20 ML VIAL (10MG/ML) FOR IV START INTRADERMA PRN; -ONDANSETRON 4 MG/2 ML VIAL IVP ONE; -SCOPOLAMINE 1.5MG/72HR PATCH TRANSDERM ONE
[2024-07-20 14:45] VITALS: RESP 16; TEMP 97.6
[2024-07-20] MEDS: IV FLUID CONTINUATION 1,000 ML IV ONE (15:03)
[2024-07-20] MEDS ORDERED: PROPOFOL 10 MG/ML 20 ML VIAL IV ONE (15:28)
[2024-07-20 16:11] VITALS: BP 104/69; PULSE 71
--- NOTE | 2024-07-20 16:25 | P.GSHP ---
History of Present Illness H&P Date: 07/20/24 Chief Complaint: Screening colonoscopy This is a 48-year-old female who presents today for screening colonoscopy. Patient has had some change in bowel habit with increased constipation. Past Medical History Past Medical History: Asthma, Cancer, COPD, Hypertension, Pneumonia Additional Past Medical History / Comment(s): hx of stomach ulcers, hx of H. Pylori, vomiting, hx. bulemia, uterine cancer, restless leg syndrome, "leaky valve", severe constipation, only goes few times per month, sometimes "greasy" stool History of Any Multi-Drug Resistant Organisms: None Reported Past Surgical History: Cholecystectomy, Hernia Repair, Hysterectomy, Orthopedic Surgery, Tubal Ligation Additional Past Surgical History / Comment(s): marielos carpal tunnel, hiatal hernia repair, right eye foreign body removed Past Anesthesia/Blood Transfusion Reactions: No Reported Reaction Past Psychological History: Anxiety, Depression Smoking Status: Vaper Past Alcohol Use History: None Reported Additional Past Alcohol Use History / Comment(s): quit smoking 2019, does vape still, recovering alcoholic-none since 2019 Past Drug Use History: None Reported Additional Drug Use History / Comment(s): per patient past use 10-15 yrs ago - Past Family History Mother Family Medical History: No Reported History Medications and Allergies Home Medications Medication Instructions Recorded Confirmed Type Buprenorphine HCl/Naloxone HCl 1 film SL TID 07/13/20 07/17/24 History [Suboxone 8 mg-2 mg Sl Film] Citalopram Hydrobromide [CeleXA] 40 mg PO DAILY 07/13/20 07/17/24 History Gabapentin 600 mg PO TID 07/13/20 07/17/24 History QUEtiapine [SEROquel] 100 - 200 mg PO HS PRN 07/13/20 07/17/24 History amLODIPine [Norvasc] 5 mg PO DAILY 07/13/20 07/17/24 History hydrOXYzine pamoate 25 mg PO Q4H PRN 07/13/20 07/17/24 History tiZANidine [Zanaflex] 4 mg PO Q6H PRN 07/13/20 07/17/24 History Furosemide [Lasix] 20 mg PO DAILY #7 tab 07/14/20 07/17/24 Rx Albuterol Inhaler [Ventolin Hfa 1 - 2 puff INHALATION Q6H PRN 07/17/24 07/17/24 History Inhaler] Allergies Allergy/AdvReac Type Severity Reaction Status Date / Time ketorolac tromethamine Allergy Rash/Hives Verified 07/20/24 14:45 [From Toradol] tramadol Allergy Rash/Hives Verified 07/20/24 14:45 Surgical - Exam Vital Signs Temp Pulse Resp BP Pulse Ox 97.6 F 76 16 116/73 96 07/20/24 14:44 07/20/24 14:44 07/20/24 14:44 07/20/24 14:44 07/20/24 14:44 - General well developed, well nourished, no distress - Eyes PERRL - ENT normal pinna - Neck no masses - Respiratory normal expansion - Cardiovascular Rhythm: regular - Abdomen Abdomen: soft, non tender
--- NOTE | 2024-07-20 16:27 | P.OP ---
Date of Procedure: 07/20/24 Preoperative Diagnosis: Change in bowel habits Screening colonoscopy Postoperative Diagnosis: Normal colon Procedure(s) Performed: Colonoscopy Anesthesia: MAC Surgeon: Juan José Cherry Pathology: none sent Condition: stable Disposition: PACU Description of Procedure: The patient is placed on the endoscopy table in the lateral position. She received IV sedation.. Digital rectal exams performed. This revealed no abnormalities. The flexible colonoscope was then placed patient anus and passed throughout the entire colon. The ileocecal valve was visualized. The cecum, ascending and transverse colon appeared normal. The descending and sigmoid colon appeared normal. The scope was brought back into the rectum and this appeared normal. Scope withdrawn for the patient.
== END 2024-07-20 16:31 | disposition home or self-care (01) ==
LOC: ORWHC2ENDO 13:56
PROVIDERS: ATTEND Surgery
DX: R19.4 Change in bowel habit (principal); I10 Essential (primary) hypertension; F41.9 Anxiety disorder, unspecified; J44.9 Chronic obstructive pulmonary disease, unspecified; C55 Malignant neoplasm of uterus, part unspecified; F32.A Depression, unspecified; K27.9 Peptic ulcer, site unspecified, unspecified as acute or chronic, without hemorrhage or perforation; G25.81 Restless legs syndrome; Z86.19 Personal history of other infectious and parasitic diseases; Z85.42 Personal history of malignant neoplasm of other parts of uterus; Z98.890 Other specified postprocedural states; Z90.49 Acquired absence of other specified parts of digestive tract; Z90.710 Acquired absence of both cervix and uterus; Z87.891 Personal history of nicotine dependence; Z88.5 Allergy status to narcotic agent; Z79.02 Long term (current) use of antithrombotics/antiplatelets; Z79.899 Other long term (current) drug therapy
CPT/HCPCS: 45378; J2704

== ENCOUNTER → 2024-08-05 | Outpatient (CLI) | payer BC ==
[2024-08-05 08:16] VITALS: BP 114/81; PULSE 87; RESP 16; TEMP 97.3
--- NOTE | 2024-08-05 16:03 | P.PAINPG ---
PQRS Measure Charge Sheet Comment: HISTORY OF PRESENT ILLNESS: A 48 yr old female as a referral from [facility] presents today w severe and chronic LBP > 3 mo secondary to radiculopathy, spondylosis and facet arthropathy without myelopathy for evaluation. Pt states pain level is provoked at 6 /10 in intensity, constant, localized in the mid lumbar spine, predominantly axial, dull in character w occasional shooting pain towards the hips, buttocks and thighs. Pain is provoked by over activity. Pain is alleviated by PT x 6 wks which ended in Apr 2024, physician guided home exercises 4 times weekly since Apr 2024, medications (Neurontin, Zanaflex, Ibu), topical Giovanny-Vazquez, heat, ice, repositioning and rest . PMH: OA, Asthma, Uterine CA, COPD, RLS, MDD/ Anxiety PSH: Cholecystectomy, Hernia Repair, Hysterectomy, Orthopedic Surgery, Tubal Ligation, BL CTR, Colonoscopy (2023) SH: Daily tobacco use, Occ ETOH use, Hx Substance Abuse FH: Mo- No Reported History All: See list Meds: See list REVIEW OF ORGAN SYSTEMS: CONSTITUTIONAL: No fevers or chills. No recent weight loss. NEUROLOGICAL: + numbness and tingling along the distal extremities. No seizure disorders or headaches. MUSCULOSKELETAL: + pain PSYCHIATRIC: Denies current depression or suicidal thoughts. Physical Examinations : Constitutional : Cooperative , not in acute distress . Neurologic : Cranial nerve II to XII intact. No focal neurological deficits. Psychiatric : alert & oriented x 3. Matching mood & appropriate affect. Judgment & insight intact. Musculoskeletal : Cervical Spine Motor strength in the deltoid and biceps: Normal right side. Normal Left side Motor strength biceps and the wrist extensors: Normal right side . Normal left side Motor strength in the triceps muscle: Normal right side. Normal left side Deep tendon reflexes: Normal at the biceps. Normal at Brachioradialis. Normal at triceps Vertebral body tenderness to deep palpation over Cervical facet loading test: positive bilaterally Spurling test: positive bilaterally Neck distraction test: positive bilaterally Jonna sign: positive bilaterally Lumbar spine Motor strength lower extremities ,thigh and legs 5/5 Right side , 5/5 Left side Deep tendon reflexes : Normal Knee Jerk. Normal Ankle Jerk Vertebral body tenderness over L3 Sue Test positive BL L3-L4 Lumbar facet Loading Test: positive Right / positive Left Range of motion of the lumbar spine Flexion 30 degrees, extension 10 degrees Straight Leg Raise test: Left/ Right positive at degrees Matthew test: positive right / positive left. Severe tenderness over the Sacroiliac joint on the Right / Left sides Gaenslen test: positive bilaterally Seated flexion test: positive bilaterally. Sacral spine : Severe tenderness over the Sacroiliac joint: right side / left side Range of motion: Flexion of the lumbar spine <60 degrees Range of motion: Extension of the lumbar spine <20 degrees Gaenslen's Test positive Matthew test: positive right side / left side Thigh Thrust Test Sacral Thrust Test Imaging: MRI non contrast of the lumbar spine from 06/09/24 reviewed Assessment/ Plan : L3-L4 radiculopathy Recommendation of PHILL L3-L4 #1. Risks, benefits of procedure discussed and patient verbalized understanding. Admits to anti- coagulant use or medical history of diabetes. Protocol for discontinuation/ continuation of medications rosalina procedure discussed. All questions answered. I have spent greater than 30 minutes on patient care today. Dr Cleary was available by phone for the evaluation of this patient. The time was used to review the medical records including relevant urine studies and Prescription history (MAPs), review of the available imaging, evaluation and examination of the patient, coordination of care with the medical staff and if applicable referring physicians, as well as creation of the medical record PQRS Narrative: Smoking Status Former smoker Home Medications: Ambulatory Orders Buprenorphine HCl/Naloxone HCl [Suboxone 8 mg-2 mg Sl Film] 1 film SL TID 07/13/20 Citalopram Hydrobromide [CeleXA] 40 mg PO DAILY 07/13/20 Gabapentin 600 mg PO TID 07/13/20 QUEtiapine [SEROquel] 100 - 200 mg PO HS PRN 07/13/20 amLODIPine [Norvasc] 5 mg PO DAILY 07/13/20 hydrOXYzine pamoate 25 mg PO Q4H PRN 07/13/20 tiZANidine [Zanaflex] 4 mg PO Q6H PRN 07/13/20 Furosemide [Lasix] 20 mg PO DAILY #7 tab 07/14/20 Albuterol Inhaler [Ventolin Hfa Inhaler] 1 - 2 puff INHALATION Q6H PRN 07/17/24 diazePAM [Valium] 5 mg PO DAILY PRN 1 Days #2 tab 08/05/24 Controlled Substance Measures - Controlled Substance Measures Is patient prescribed a controlled substance at discharge?: Yes When asked, does pt state using other controlled substances?: No If prescribed controlled substance>3 days was MAPS reviewed?: Prescribed <3 Days
== END ==
LOC: PNWHC3 07:47
PROVIDERS: ATTEND Specialist
DX: M47.26 Other spondylosis with radiculopathy, lumbar region (principal); Z88.8 Allergy status to other drugs, medicaments and biological substances; Z88.5 Allergy status to narcotic agent; Z87.891 Personal history of nicotine dependence
CPT/HCPCS: 99211

== ENCOUNTER 2024-08-18 12:33 | Day surgery (SDC) | payer BC ==
[2024-08-18 13:57] VITALS: TEMP 98.1
[2024-08-18] MEDS ORDERED: methylPREDNISolone ACETATE 80 MG/ML 1 ML VIAL ONE (14:29)
[2024-08-18] MEDS ORDERED: IOPAMIDOL M200 10 ML VIAL ONE (14:29)
[2024-08-18] MEDS ORDERED: LACTATED RINGERS 1,000 ML IV SCH (14:31)
--- NOTE | 2024-08-18 14:51 | P.PCN ---
Description of Procedure: PREOPERATIVE DIAGNOSIS: 1- Lumbar Degenerative Disc Diseases 2-Lumbar spondylosis with Facet arthropathy without myelopathy. 3-lumbar spinal stenosis POSTOPERATIVE DIAGNOSIS: 1-lumbar degenerative disc disease. 2-lumbar spondylosis with facet arthropathy without myelopathy. 3-lumbar spinal stenosis. PROCEDURE Injection of radio contrast material into L3-4 interspace, interpretation of epidurogram, injection of steroid at L3-4 epidural space under fluoroscopic guidance. ANESTHESIA: Lidocaine 1% subcutaneously. In OR continuous pulse ox, EKG, blood pressure and verbal communication was maintained with the patient. EBL: Minimal PROCEDURE INDICATION: Before the procedure were discussed with the patient detailed procedure, alternatives, complications including infection, bleeding, nerve damage, paralysis all of which could be permanent. Patient understands and all questions were answered. PROCEDURE DESCRIPTION : After getting consent, patient in OR in prone position. Back was prepped with chlorhexidine and draped in sterile fashion. After injecting 10 mL of 1% lidocaine subcutaneously, a 20-gauge Tuohy needle was introduced at L3-4 interspace with loss of resistance technique using a syringe filled with air. Negative CSF, negative blood, negative paresthesia. Needle position was confirmed with AP and lateral view of the fluoroscope. After repeat negative aspiration 2 mL of Omnipaque 200 water soluble contrast was injected. Contrast was noted in the epidural space. No contrast was noted into intrathecal or intravascular space. After repeat negative aspiration 6 mL solution was injected intermittently which consists of 5 mL of preservative-free normal saline mixed with 1 mL of 80 mg Depo-Medrol. Needle was withdrawn intact. Skin was cleansed and Band-Aids was applied. DISPOSITION / PLANS: The patient tolerated the procedure well. No complication. The patient was placed in a supine position and transferred to the recovery area in a stable condition for observation. There was no evidence of lower extremity motor or sensory deficit after the procedure. Patient was discharged from the recovery room after meeting discharge criteria. Home discharge instructions were given to the patient by the staff. The patient was reexamined prior to discharge. The patient will schedule a follow up in the clinic in 2-4 weeks.
[2024-08-18 15:02] VITALS: BP 123/79; PULSE 76; RESP 18
--- NOTE | 2024-08-18 15:14 | FL ---
EXAMINATION TYPE: FL guided pain mgmt statistic DATE OF EXAM: 08/18/2024 HISTORY: Fluoroscopy time Total dose area product (DAP) in uGy*m?, mGy*cm? (or similar): 0.33803 IMPRESSION: 1. Fluoroscopy time. [facility], , 08/18/2024 3:12 PM
== END 2024-08-18 15:17 | disposition home or self-care (01) ==
LOC: ORPAIN 12:33
PROVIDERS: ATTEND Pain Medicine Interventional Pain Medicine
DX: M51.369 Other intervertebral disc degeneration, lumbar region without mention of lumbar back pain or lower extremity pain (principal); M47.816 Spondylosis without myelopathy or radiculopathy, lumbar region; M48.061 Spinal stenosis, lumbar region without neurogenic claudication
CPT/HCPCS: 62323

== ENCOUNTER → 2024-09-09 | Outpatient (CLI) | payer BC ==
[2024-09-09 08:36] VITALS: BP 136/92; PULSE 88; RESP 16
--- NOTE | 2024-09-09 15:19 | P.PAINPG ---
PQRS Measure Charge Sheet Comment: HISTORY OF PRESENT ILLNESS: A 48 yr old female as a referral from [facility] presents today w severe and chronic LBP > 3 mo secondary to radiculopathy, spondylosis and facet arthropathy without myelopathy for evaluation s/p PHILL L3-L4 #1. Pt states she experienced 50% pain relief x 1 wk s/p procedure. Pt states pain level is provoked at 6 /10 in intensity, constant, localized in the mid lumbar spine, predominantly axial, dull in character w occasional shooting pain towards the hips, buttocks and thighs. Pain is provoked by over activity. Pain is alleviated by PT x 6 wks which ended in Apr 2024, physician guided home exercises 4 times weekly since Apr 2024, medications, topical, heat, ice, repo sitioning and rest . She has an appt w Dr Bar in 6 wks. Interventional procedures include PHILL L3-L4 x1 Medications include Suboxone, Neurontin, Zanaflex, Ibu, Giovanny-Vazquez, Hx Substance Abuse REVIEW OF ORGAN SYSTEMS: CONSTITUTIONAL: No fevers or chills. No recent weight loss. NEUROLOGICAL: + numbness and tingling along the distal extremities. No seizure disorders or headaches. MUSCULOSKELETAL: + pain PSYCHIATRIC: Denies current depression or suicidal thoughts. Physical Examinations : Constitutional : Cooperative , not in acute distress . Neurologic : Cranial nerve II to XII intact. No focal neurological deficits. Psychiatric : alert & oriented x 3. Matching mood & appropriate affect. Judgment & insight intact. Musculoskeletal : Cervical Spine Motor strength in the deltoid and biceps: Normal right side. Normal Left side Motor strength biceps and the wrist extensors: Normal right side . Normal left side Motor strength in the triceps muscle: Normal right side. Normal left side Deep tendon reflexes: Normal at the biceps. Normal at Brachioradialis. Normal at triceps Vertebral body tenderness to deep palpation over Cervical facet loading test: positive bilaterally Spurling test: positive bilaterally Neck distraction test: positive bilaterally Jonna sign: positive bilaterally Lumbar spine Motor strength lower extremities ,thigh and legs 5/5 Right side , 5/5 Left side Deep tendon reflexes : Normal Knee Jerk. Normal Ankle Jerk Vertebral body tenderness over L3 Sue Test positive BL L3-L4 Taut bands w twitch response over BL L2-S1 Lumbar facet Loading Test: positive Right / positive Left Range of motion of the lumbar spine Flexion 30 degrees, extension 10 degrees Straight Leg Raise test: Left/ Right positive at degrees Matthew test: positive right / positive left. Severe tenderness over the Sacroiliac joint on the Right / Left sides Gaenslen test: positive bilaterally Seated flexion test: positive bilaterally. Sacral spine : Severe tenderness over the Sacroiliac joint: right side / left side Range of motion: Flexion of the lumbar spine <60 degrees Range of motion: Extension of the lumbar spine <20 degrees Gaenslen's Test positive Matthew test: positive right side / left side Thigh Thrust Test Sacral Thrust Test Imaging: MRI non contrast of the lumbar spine from 06/09/24 reviewed Assessment/ Plan : L3-L4 radiculopathy Recommendation of BL TPIs L2-S1 #1 and TENS unit use M54.16, G89.4. Risks, benefits of procedure discussed and patient verbalized understanding. Admits to anti- coagulant use or medical history of diabetes. Protocol for discontinuation/ continuation of medications rosalina procedure discussed. All questions answered. I have spent greater than 30 minutes on patient care today. Dr Cleary was available by phone for the evaluation of this patient. The time was used to review the medical records including relevant urine studies and Prescription history (MAPs), review of the available imaging, evaluation and examination of the patient, coordination of care with the medical staff and if applicable referring physicians, as well as creation of the medical record PQRS Narrative: Smoking Status Former smoker Hx Alcohol Use (MH) No Home Medications: Ambulatory Orders Buprenorphine HCl/Naloxone HCl [Suboxone 8 mg-2 mg Sl Film] 1 film SL TID 07/13/20 Citalopram Hydrobromide [CeleXA] 40 mg PO DAILY 07/13/20 Gabapentin 600 mg PO TID 07/13/20 QUEtiapine [SEROquel] 100 - 200 mg PO HS PRN 07/13/20 amLODIPine [Norvasc] 5 mg PO DAILY 07/13/20 hydrOXYzine pamoate 25 mg PO Q4H PRN 07/13/20 tiZANidine [Zanaflex] 4 mg PO Q6H PRN 07/13/20 Furosemide [Lasix] 20 mg PO DAILY #7 tab 07/14/20 Albuterol Inhaler [Ventolin Hfa Inhaler] 1 - 2 puff INHALATION Q6H PRN 07/17/24 diazePAM [Valium] 5 mg PO DAILY PRN 1 Days #2 tab 08/05/24 Controlled Substance Measures - Controlled Substance Measures Is patient prescribed a controlled substance at discharge?: No
== END ==
LOC: PNWHC3 08:17
PROVIDERS: ATTEND Specialist
DX: M54.16 Radiculopathy, lumbar region (principal); Z87.891 Personal history of nicotine dependence; Z88.8 Allergy status to other drugs, medicaments and biological substances; Z88.5 Allergy status to narcotic agent
CPT/HCPCS: 99211

== ENCOUNTER 2024-10-02 07:36 | Day surgery (SDC) | payer BC ==
[2024-10-01 14:44] VITALS: BMI 23.4
[2024-10-02] MEDS ORDERED: LACTATED RINGERS 1,000 ML IV SCH (07:49)
[2024-10-02 08:02] LABS: Glucose,Whole Blood 85 mg/dL (70-110)
[2024-10-02 08:05] VITALS: BP 112/69; PULSE 86; RESP 16; TEMP 97.4
[2024-10-02] MEDS ORDERED: ROPIVACAINE 5MG/ML 20ML VIAL ONE (09:09)
[2024-10-02] MEDS ORDERED: methylPREDNISolone ACETATE 80 MG/ML 1 ML VIAL ONE (09:09)
--- NOTE | 2024-10-02 09:24 | P.PCN ---
Description of Procedure: Preprocedure diagnosis. Myofascial pain. Myofascial trigger point. Postprocedure diagnosis. As above. Procedure done. Myofascial trigger point injection with local anesthetics and steroid at 6 points. Anesthesia. Local anesthetic infiltration. In the OR continuous pulse ox, EKG, blood pressure, and verbal communication was maintained with the patient. Blood loss. None. Indication. Discussed with the patient procedure, alternatives and possible complications which may include infection, bleeding, nerve damage, aggravation of pain. Patient understands and all questions were answered. Procedure note. After getting consent patient in the procedure area. Most tender points were identified and marked. A 25-gauge needle attached to syringe was introduced at the trigger points and after negative aspiration 5 mL solution are injected at each trigger point. I injected 6 trigger points in bilateral lumber paraspinal muscles , 3 on each side. Total solution consists of 30 ml 0.5%Ropivacaine mixed with 80 mg Depomedrol. Disposition. Patient tolerated the procedure well. No complication. Discharged home in stable condition.
== END 2024-10-02 09:48 | disposition home or self-care (01) ==
LOC: ORPAIN 07:36
PROVIDERS: ATTEND Pain Medicine Interventional Pain Medicine
DX: M79.18 Myalgia, other site (principal)
CPT/HCPCS: 20553; J2795; J1010

== ENCOUNTER → 2024-10-21 | Outpatient (CLI) | payer BC ==
[2024-10-21 09:17] VITALS: BP 119/68; PULSE 72; RESP 18; TEMP 97.5
--- NOTE | 2024-10-21 15:43 | P.PAINPG ---
PQRS Measure Charge Sheet Comment: HISTORY OF PRESENT ILLNESS: A 48 yr old female presents today w severe and chronic LBP > 3 mo secondary to radiculopathy, spondylosis and facet arthropathy without myelopathy for evaluation s/p BL TPIs L2-S1 #1. Pt states she experienced 80% pain relief x 2-3 wk s/p procedure. Pt states pain level is provoked at 1 /10 in intensity, constant, localized in the mid lumbar spine, predominantly axial, dull in character w occasional shooting pain towards the hips, buttocks and thighs. Pain is provoked by over activity. Pain is alleviated by PT x 6 wks which ended in Apr 2024, physician guided home exercises 4 times weekly since Apr 2024, medications, topical, heat, ice, repositioning and rest . She has an appt w Dr Bar in 6 wks. Interventional procedures include PHILL L3-L4 x1, BL TPIs L2-S1 x1 Medications include Suboxone, Neurontin, Zanaflex, Ibu, Giovanny-Vazquez, Hx Substance Abuse REVIEW OF ORGAN SYSTEMS: CONSTITUTIONAL: No fevers or chills. No recent weight loss. NEUROLOGICAL: + numbness and tingling along the distal extremities. No seizure disorders or headaches. MUSCULOSKELETAL: + pain PSYCHIATRIC: Denies current depression or suicidal thoughts. Physical Examinations : Constitutional : Cooperative , not in acute distress . Neurologic : Cranial nerve II to XII intact. No focal neurological deficits. Psychiatric : alert & oriented x 3. Matching mood & appropriate affect. Judgment & insight intact. Musculoskeletal : Cervical Spine Motor strength in the deltoid and biceps: Normal right side. Normal Left side Motor strength biceps and the wrist extensors: Normal right side . Normal left side Motor strength in the triceps muscle: Normal right side. Normal left side Deep tendon reflexes: Normal at the biceps. Normal at Brachioradialis. Normal at triceps Vertebral body tenderness to deep palpation over Cervical facet loading test: positive bilaterally Spurling test: positive bilaterally Neck distraction test: positive bilaterally Jonna sign: positive bilaterally Lumbar spine Motor strength lower extremities ,thigh and legs 5/5 Right side , 5/5 Left side Deep tendon reflexes : Normal Knee Jerk. Normal Ankle Jerk Vertebral body tenderness over L3 Sue Test positive BL L3-L4 Taut bands w twitch response over BL L2-S1 Lumbar facet Loading Test: positive Right / positive Left Range of motion of the lumbar spine Flexion 30 degrees, extension 10 degrees Straight Leg Raise test: Left/ Right positive at degrees Matthew test: positive right / positive left. Severe tenderness over the Sacroiliac joint on the Right / Left sides Gaenslen test: positive bilaterally Seated flexion test: positive bilaterally. Sacral spine : Severe tenderness over the Sacroiliac joint: right side / left side Range of motion: Flexion of the lumbar spine <60 degrees Range of motion: Extension of the lumbar spine <20 degrees Gaenslen's Test positive Matthew test: positive right side / left side Thigh Thrust Test Sacral Thrust Test Imaging: MRI non contrast of the lumbar spine from 06/09/24 reviewed Assessment/ Plan : L3-L4 radiculopathy Will manage residual pain and may RTC on an as needed basis. Continue TENS unit use M54.16, G89.4. All questions answered. I have spent greater than 30 minutes on patient care today. Dr Cleary was available by phone for the evaluation of this patient. The time was used to review the medical records including relevant urine studies and Prescription history (MAPs), review of the available imaging, evaluation and examination of the patient, coordination of care with the medical staff and if applicable referring physicians, as well as creation of the medical record PQRS Narrative: Smoking Status Former smoker Hx Alcohol Use (MH) No Home Medications: Ambulatory Orders Buprenorphine HCl/Naloxone HCl [Suboxone 8 mg-2 mg Sl Film] 1 film SL TID 07/13/20 Gabapentin 600 mg PO QAM 07/13/20 amLODIPine [Norvasc] 5 mg PO QAM 07/13/20 hydrOXYzine pamoate 25 mg PO Q4H PRN 07/13/20 tiZANidine [Zanaflex] 4 mg PO HS 07/13/20 Albuterol Inhaler [Ventolin Hfa Inhaler] 1 - 2 puff INHALATION Q6H PRN 07/17/24 Acetaminophen(Unknown Dose) 1 tab PO QAM PRN 10/01/24 Biotin [Biotin Disolve] 1,000 mcg PO QAM 10/01/24 Furosemide [Lasix] 20 mg PO QAM 10/01/24 Ibuprofen [Motrin] 600 mg PO Q8HR PRN 10/01/24 Multivitamins, Thera [Multivitamin (formulary)] 1 tab PO QAM 10/01/24 buPROPion XL [Wellbutrin XL] 300 mg PO QAM 10/01/24 Controlled Substance Measures - Controlled Substance Measures Is patient prescribed a controlled substance at discharge?: No
== END ==
LOC: PNWHC3 07:35
PROVIDERS: ATTEND Specialist
DX: M54.16 Radiculopathy, lumbar region (principal); G89.4 Chronic pain syndrome; Z88.9 Allergy status to unspecified drugs, medicaments and biological substances; Z88.5 Allergy status to narcotic agent; Z87.891 Personal history of nicotine dependence
CPT/HCPCS: 99211